=== PATIENT | female | born 1965 | race Caucasian/White ===

== ENCOUNTER 2017-05-04 01:38 | Emergency (ER) | payer BC ==
[~2017-05-04] VITALS: Ht 167.6 cm; Wt 77.8 kg
[~2017-05-04 01:38] MED LIST: ALBU1AER9 INH; AMLO5TAB4 PO; ATEN50TA8 PO; ATV1 PO; FLUO10CA48 PO; IBUP-1050 PO; NSNN50 NAE; OMEP40CA41 PO; PRM/45 PO
[2017-05-04 01:46] VITALS: TEMP 36.9; Ht 167.6 cm; Wt 77.8 kg
[2017-05-04] MEDS ORDERED: KETOROLAC TROMETHAMINE 30 MG/ML VIAL IV STA (01:56)
[2017-05-04] MEDS ORDERED: SODIUM CHLORIDE 0.9% 1000ML 1,000 ML IV STA (01:56)
[2017-05-04] MEDS ORDERED: ONDANSETRON INJ 2 MG/ML 2 ML VIAL IV STA (01:56)
[2017-05-04] MEDS ORDERED: PRLSR20 PO (02:04)
[2017-05-04 02:07] LABS: URINE APPEARANCE CLEAR (CLEAR); URINE BILIRUBIN NEG (NEG); URINE COLOR YELLOW; URINE NITRITE NEG (NEG); URINE SPECIFIC GRAVITY 1.009 (1.000-1.030); UROBILINOGEN NEG (NEG)
[2017-05-04 02:19] LABS: MANUAL MICROSCOPIC REQUIRED? NO; REVIEW REQ? NO
[2017-05-04 02:21] LABS: BASO % 0.2 %; BASO ABS # 0.02 K/uL (0-0.2); COMPLETE YES; EOS % 1.5 %; HEMATOCRIT 38.2 % (37-47); IG% 0.3 %; LYMPH % 7.8 %; LYMPH ABS # 0.92 K/uL (1.2-3.4); MEAN CELL VOLUME 81.3 fL (80-100); MEAN CORPUSCULAR HEMOGLOBIN 27.2 pg (25-34); MEAN CORPUSCULAR HGB CONC 33.5 g/dl (32-36); MEAN PLATELET VOLUME 8.2 fL (7.4-10.4); NEUT % 82.2 %; PLATELET COUNT 259 K/uL (130-400); WHITE BLOOD COUNT 11.81 K/uL (4.8-10.8)
[2017-05-04 02:38] LABS: ALT/SGPT 19 U/L (12-78); AST/SGOT 15 U/L (15-37); BLOOD UREA NITROGEN 20 mg/dl (7-18); BUN/CREATININE RATIO 13.3 (10-20); CALCIUM 8.7 mg/dl (8.5-10.1); CARBON DIOXIDE 27 mmol/L (21-32); CHLORIDE 105 mmol/L (98-107); GLUCOSE 123 mg/dl (70-99); POTASSIUM 4.1 mmol/L (3.5-5.1); SODIUM 141 mmol/L (136-145)
[2017-05-04 02:49] LABS: ALKALINE PHOSPHATASE 108 U/L (45-117)
[2017-05-04 03:10] LABS: LYME DISEASE AB IGG NEG (NEG); LYME DISEASE AB IGM NEG (NEG)
[2017-05-04] MEDS ORDERED: METOCLOPRAMIDE HCL INJ 5 MG/ML 2 ML VIAL IV STA (03:40)
[2017-05-04] MEDS ORDERED: HYDROmorphone INJ 1 MG/ML SYR IV STA ×2 (03:40→06:11)
--- NOTE | 2017-05-04 03:49 | EMERGENCY ROOM VISIT NOTE ---
History Report prepared by Elizabeth: Jeannie Carreon Under the Supervision of: Dr. Jovanny Ponce M.D. First contact with patient: 01:49 Chief Complaint: URINARY SYMPTOMS Stated Complaint: UTI,TOLD TO COME TO ER IF GOT FEVER OR VOMITED Nursing Triage Summary: pt has hx for uti, seen at urgent care given macrobid for got she was allergic and began to have heart racing and stopped it had dr call in new script that she started yesterday then this morning started with more back pain, stomach, sharp shooting pains down into vagina, vomited, low grade fever at home, h/a for days History of Present Illness The patient is a 52 year old female who presents to the Emergency Room with complaints of worsening urinary symptoms starting a few weeks ago. The patient states that it started out with her not feeling well and progressively becoming achy within the last week. She states that she went to work four days ago and while at work became nauseous. She states that she then went to the restroom and experienced burning with urination. The patient states that a few hours later she started experiencing back pain. She states that three days ago she called her PCP who had no available appointments. The patient reports that she then decided to go to [facility]. She states that they did a culture there that came back negative and gave her medication to help with the symptoms. The patient notes that two days later she realized that she has an allergic reaction to this medication so she stopped taking it. The patient states that she had gotten better, but started to feel ill again yesterday. The patient complains of nausea, vomiting, abdominal pain, back pain, intermittent diarrhea , and a slight fever. The patient denies a cholecystectomy, rash, and chance of . The patient notes a history of a hysterectomy and ulcerative colitis. The patient currently rates her pain as a 4.5/10 in severity. Source of History: patient Onset: few weeks ago Position: other (global) Symptom Intensity: 4.5/10 Quality: other (global) Timing: worsening Associated Symptoms: + fevers, + nausea, + vomiting, + abdominal pain, + back pain, + diarrhea, No rash Note: The patient complains of achiness. Review of Systems See HPI for pertinent positives & negatives. A total of 10 systems reviewed and were otherwise negative. Past Medical & Surgical Medical Problems: (1) GERD (gastroesophageal reflux disease) (2) Hypertension (3) Ulcerative colitis Surgical Problems: (1) History of hysterectomy Family History No pertinent family history Social History Smoking Status: Never Smoker Drug Use: none Marital Status: Housing Status: lives with family Occupation Status: employed Current/Historical Medications Scheduled Albuterol (Proair Hfa), 2 PUFFS INH QID PRN Amlodipine Besylate (Norvasc), 5 MG PO DAILY Amoxicillin & Pot Clavulanate (Augmentin 875-125 mg), 1 TAB PO BID Atenolol (Tenormin), 50 MG PO BID Estrogens, Conjugated (Premarin), 0.9 MG PO DAILY Fluoxetine (Prozac), 20 MG PO DAILY Mometasone Furoate (Nasal) (Nasonex), 2 SPRAY DOUGIE DAILY PRN Omeprazole (Prilosec), 40 MG PO DAILY Scheduled PRN Ibuprofen (Advil), 400 MG PO UD PRN for Headache or Pain Lorazepam (Lorazepam), 0.5 MG PO UD PRN for sleep/migraine Oxycodone/Acetaminophen 5MG/325MG (Percocet 5MG/325MG), 1-2 TAB PO Q4H PRN for Pain Allergies Coded Allergies: Nitrofurantoin (Verified Allergy, Mild, 05/04/17) Levofloxacin (Unverified Allergy, Unknown, unknown, 05/04/17) POLLEN (Verified Allergy, Unknown, 05/04/17) Sulfa Drugs (Verified Adverse Reaction, Severe, SEVERE VOMITIN AND NAUSEA , 02/29/16) VOMITTING AND SEVERE NAUSEA Physical Exam Vital Signs Date Time Temp Pulse Resp B/P (MAP) Pulse Ox O2 Delivery O2 Flow Rate FiO2 05/04/17 06:34 70 18 167/92 97 05/04/17 05:13 69 18 143/77 96 Room Air 05/04/17 03:55 75 18 151/92 95 Room Air 05/04/17 02:59 70 16 158/87 98 Room Air 05/04/17 02:18 74 05/04/17 01:46 36.9 82 18 150/87 96 Room Air Physical Exam GENERAL: Patient is a healthy-appearing well-nourished HEAD: Normocephalic atraumatic EYES: Ocular movements intact pupils equal and react to light OROPHARYNX mucous membranes are moist no exudates present no erythema or edema present NECK: Supple no nuchal rigidity CHEST: Good equal expansion LUNGS: Clear and equal to auscultation CARDIAC: Normal S1 and S2 ABDOMEN: Soft, tenderness to right upper quadrant, no guarding BACK: No CVA tenderness EXTREMITIES: No pain upon palpation normal muscle strength in all groups no clubbing cyanosis or edema NEURO: Patient is following commands and answering questions appropriately. Alert and oriented x3 Cranial Nerves 2-12 grossly intact Medical Decision & Procedures ER Provider Diagnostic Interpretation: Radiology results as stated below per my review and radiologist interpretation: CHEST X-RAY: Findings: The x-ray was interpreted by me and shows no signs of pneumonia, congestion, or pneumothorax. US RUQ: Findings: No gallstones. No evidence of GB wall thickening or pericholecystic fluid. No biliary dilation. Liver measures 18.8 cm long and demonstrates heterogenously increased echogenicity, compatible with hepatic steatosis and/or hepatocellular disease. Right perinephric fluid. No hydronephrosis. Correlate clinically for pyelonephritis. Radiologist: Leighton Sarmiento MD Study ready at 03:49 and initial results transmitted at 04:41. CT ABDOMEN & PELVIS: Comparison: 05/16/2012 Findings: Bilateral perinephric fat stranding with slightly heterogenous enhancement of the renal parenchyma. No hydronephrosis. the findings suggest acute pyelonephritis. Normal appendix. No evidence of bowel obstruction. No free air or free fluid in. Hysterectomy. Radiologist: Leighton Samriento MD Study ready at 05:09 and intitial results transmitted at 05:48. Laboratory Results 05/04/17 02:10 Red Blood Count 4.70, Mean Corpuscular Volume 81.3, Mean Corpuscular Hemoglobin 27.2, Mean Corpuscular Hemoglobin Concent 33.5, Mean Platelet Volume 8.2, Neutrophils (%) (Auto) 82.2, Lymphocytes (%) (Auto) 7.8, Monocytes (%) (Auto) 8.0, Eosinophils (%) (Auto) 1.5, Basophils (%) (Auto) 0.2, Neutrophils # (Auto) 9.71, Lymphocytes # (Auto) 0.92, Monocytes # (Auto) 0.95, Eosinophils # (Auto) 0.18, Basophils # (Auto) 0.02 05/04/17 02:10 Test 05/04/17 01:50 05/04/17 02:10 Urine Color YELLOW Urine Appearance CLEAR (CLEAR) Urine pH 6.0 (4.5-7.5) Urine Specific [place] 1.009 (1.000-1.030) Urine Protein NEG (NEG) Urine Glucose (UA) NEG (NEG) Urine Ketones NEG (NEG) Urine Occult Blood NEG (NEG) Urine Nitrite NEG (NEG) Urine Bilirubin NEG (NEG) Urine Urobilinogen NEG (NEG) Urine Leukocyte Esterase NEG (NEG) White Blood Count 11.81 K/uL (4.8-10.8) Red Blood Count 4.70 M/uL (4.2-5.4) Hemoglobin 12.8 g/dL (12.0-16.0) Hematocrit 38.2 % (37-47) Mean Corpuscular Volume 81.3 fL (80-100) Mean Corpuscular Hemoglobin 27.2 pg (25-34) Mean Corpuscular Hemoglobin Concent 33.5 g/dl (32-36) Platelet Count 259 K/uL (130-400) Mean Platelet Volume 8.2 fL (7.4-10.4) Neutrophils (%) (Auto) 82.2 % Lymphocytes (%) (Auto) 7.8 % Monocytes (%) (Auto) 8.0 % Eosinophils (%) (Auto) 1.5 % Basophils (%) (Auto) 0.2 % Neutrophils # (Auto) 9.71 K/uL (1.4-6.5) Lymphocytes # (Auto) 0.92 K/uL (1.2-3.4) Monocytes # (Auto) 0.95 K/uL (0.11-0.59) Eosinophils # (Auto) 0.18 K/uL (0-0.5) Basophils # (Auto) 0.02 K/uL (0-0.2) RDW Standard Deviation 41.8 fL (36.4-46.3) RDW Coefficient of Variation 14.1 % (11.5-14.5) Immature Granulocyte % (Auto) 0.3 % Immature Granulocyte # (Auto) 0.03 K/uL (0.00-0.02) Anion Gap 9.0 mmol/L (3-11) Est Creatinine Clear Calc Drug Dose 45.7 ml/min Estimated GFR () 45.6 Estimated GFR (Non- 39.4 BUN/Creatinine Ratio 13.3 (10-20) Calcium Level 8.7 mg/dl (8.5-10.1) Total Bilirubin 0.2 mg/dl (0.2-1) Direct Bilirubin < 0.1 mg/dl (0-0.2) Aspartate Amino Transf (AST/SGOT) 15 U/L (15-37) Alanine Aminotransferase (ALT/SGPT) 19 U/L (12-78) Alkaline Phosphatase 108 U/L (45-117) Total Protein 7.5 gm/dl (6.4-8.2) Albumin 3.0 gm/dl (3.4-5.0) Lipase 71 U/L (73-393) Thyroid Stimulating Hormone (TSH) 2.000 uIu/ml (0.300-4.500) Lyme Disease IgG Antibody NEG (NEG) Lyme Disease IgM Antibody NEG (NEG) Labs reviewed by ED physician. Medications Administered Medications (Trade) Dose Ordered Sig/Shea Route Start Time Stop Time Status Last Admin Dose Admin Sodium Chloride 1,000 ml @ 999 mls/hr Q1H1M STAT IV 05/04/17 01:56 05/04/17 02:56 DC 05/04/17 02:07 999 MLS/HR Ketorolac Tromethamine (Toradol Inj) 30 mg NOW STAT IV 05/04/17 01:56 05/04/17 02:00 DC 05/04/17 02:06 30 MG Ondansetron HCl (Zofran Inj) 4 mg NOW STAT IV 05/04/17 01:56 05/04/17 02:00 DC 05/04/17 02:06 4 MG Hydromorphone HCl (Dilaudid Inj) 1 mg NOW STAT IV 05/04/17 03:40 05/04/17 03:41 DC 05/04/17 03:50 1 MG Metoclopramide HCl (Reglan Inj) 10 mg NOW STAT IV 05/04/17 03:40 05/04/17 03:41 DC 05/04/17 03:47 10 MG Ceftriaxone Sodium (Rocephin Inj) 1 gm NOW STAT IV 05/04/17 04:44 05/04/17 04:46 DC 05/04/17 05:08 1 GM Amoxicillin/ Clavulanate Potassium (Augmentin Tab) 875 mg BID ONCE PO 05/04/17 09:00 05/04/17 09:01 05/04/17 06:22 875 MG Amoxicillin/ Clavulanate Potassium (Augmentin Tab) 875 mg ONE ONCE PO 05/04/17 06:00 05/04/17 06:01 DC 05/04/17 06:21 875 MG Hydromorphone HCl (Dilaudid Inj) 1 mg NOW STAT IV 05/04/17 06:11 05/04/17 06:12 DC 05/04/17 06:23 1 MG ED Course 0149: Past medical records reviewed. The patient was evaluated in room A11. A complete history and physical examination was performed. 0156: Ordered Zofran Inj 4 mg IV, Toradol Inj 30 mg IV, NSS 1000 ml @ 999 mls/ hr IV. 0340: Ordered Reglan Inj 10 mg IV, Dilaudid Inj 1 mg IV. 0444: Ordered Rocephin Inj 1 gm IV. 0600: Ordered Augmentin Tab 875 mg PO. 0611: Ordered Dilaudid Inj 1 mg IV. 0641: Upon reexamination the patient is resting comfortably. I discussed results and treatment plan with the patient. She verbalizes agreement and understanding. The patient is ready for discharge. 0900: Ordered Augmentin Tab 875 mg PO. Medical Decision Medication Reconciliation: I attest that I have personally reviewed the patient' s current medication list Blood Pressure Screening: Patient was found to have an elevated blood pressure and was referred to their primary care doctor for recheck and further treatment Differential diagnosis: Etiologies such as appendicitis, diverticulitis, PUD, biliary pathology, UTI, pancreatitis, obstruction, mesenteric ischemia, aortic pathology, infections, inflammatory bowel disease, renal colic, as well as others were entertained. This is a 52-year-old female who presents emergency department complaining of right upper quadrant abdominal pain. The patient was recently placed on Cipro for urinary tract infection I will note that the patient's urine appears to be clean here in the emergency department she does however have an elevation in her white blood cell count. Serial abdominal examinations were performed on the patient in the emergency department and at no tender the patient exhibited a surgical abdomen. The patient was given Toradol Zofran and Dilaudid for her pain. Repeat examination revealed much improvement the patient's symptoms. The patient's ultrasound was concerning for what appeared to be pyelonephritis therefore she was sent for CAT scan of the abdomen and pelvis. This did confirm what appears to be pyelonephritis though the patient appears to have a clean urine. She was able to tolerate by mouth medications. I will switch the patient over to Augmentin because of her multiple drug allergies. At this point I do feel that the patient as well as to be discharged home for follow-up with her primary care physician however she was told to return if the pain is unbearable or she is vomiting. Patient was in agreement with treatment plan. Impression Primary Impression: Symptoms involving urinary system Scribe Attestation The scribe's documentation has been prepared under my direction and personally reviewed by me in its entirety. I confirm that the note above accurately reflects all work, treatment, procedures, and medical decision making performed by me. Departure Information Dispostion Home / Self-Care Prescriptions Oxycodone/Acetaminophen 5MG/325MG (PERCOCET 5MG/325MG) Tab 1-2 TAB PO Q4H Y for Pain, #14 TAB Prov: Jovanny Ponce MD 05/04/17 Amoxicillin & Pot Clavulanate (Augmentin 875-125 mg) 1 Tab Tab 1 TAB PO BID for 10 Days, #20 TAB Prov: Jovanny Ponce MD 05/04/17 Referrals Michelle Mora PA-C (PCP) Forms HOME CARE DOCUMENTATION FORM, IMPORTANT VISIT INFORMATION Patient Instructions My [facility] Additional Instructions You were found to have an elevated blood pressure today (>120 sytolic or >90 diastolic). Per medicare guidelines, you need to follow up with this blood pressure screening with your Primary Care Physician (PCP). For a new PCP call [phone]. You received narcotic or benzodiazepene medication while in the emergency room today. Do not drive, operate heavy machinery, or drink alcohol under the influence of this medication. Take 600 mg Ibuprofen every 6 hours Take Percocet for breakthrough pain Culture results are usually available in approx 48 hours You have been examined and treated today on an emergency basis only. This is not a substitute for, or an effort to provide, complete comprehensive medical care. It is impossible to recognize and treat all injuries or illnesses in a single emergency department visit. It is therefore important that you follow up closely with your PCP. Call as soon as possible for an appointment. Thank you for your time and consideration. I look forward to speaking with you again soon. Please don't hesitate to call us if you have any questions.
[2017-05-04] MEDS ORDERED: METOCLOPRAMIDE HCL INJ 5 MG/ML 2 ML VIAL ONE (04:15)
[2017-05-04] MEDS ORDERED: HYDROmorphone INJ 1 MG/ML SYR ONE (04:15)
[2017-05-04] MEDS ORDERED: CEFTRIAXONE SOD INJ 1 GM ADDVIAL IV STA (04:44)
[2017-05-04] MEDS ORDERED: OPTIRAY 320 IV PRN (05:00)
[2017-05-04] MEDS ORDERED: AMOXICILLIN/CLAVULANATE TAB 875 MG TAB PO ONE ×2 (06:00→09:00)
[2017-05-04] MEDS ORDERED: EMPTY 8 DRAM VIAL ONE (06:01)
[2017-05-04] MEDS ORDERED: OXYC-57 PO (06:13)
[2017-05-04] MEDS ORDERED: AMOX875T PO (06:13)
[2017-05-04 06:34] VITALS: BP 167/92; PULSE 70; O2SAT 97
--- NOTE | 2017-05-04 06:54 | DIAGNOSTIC IMAGING REPORT ---
CHEST ONE VIEW PORTABLE HISTORY:52 yearsFemalePt c/o RUQ abd pain COMPARISON: 02/29/2016. TECHNIQUE: Portable upright AP view of the chest FINDINGS: Cardiac silhouette is again upper limits of normal. There is no pneumothorax, pleural effusion, focal airspace consolidation or overt pulmonary edema. There is minimal convex left curvature of the lower thoracic spine. Bones are grossly intact. IMPRESSION: No acute cardiopulmonary process. The above report was generated using voice recognition software. It may contain grammatical, syntax or spelling errors. Electronically signed by: Joshua Diaz 05/04/2017 6:53 AM Dictated Date/Time: 05/04/2017 6:51 AM
--- NOTE | 2017-05-04 07:38 | DIAGNOSTIC IMAGING REPORT ---
ABDOMEN LIMITED (US) HISTORY:52 yearsFemalePt c/o Ruq abd pain COMPARISON: CT abdomen of same day TECHNIQUE: Also real-time symmetric images of the abdominal right upper quadrant were obtained assessing grayscale appearance and color Doppler flow. FINDINGS: Imaged pancreas appears unremarkable. There is increased echogenicity of the liver with poor through transmission suggesting fatty infiltration. Gallbladder is unremarkable without shadowing cholelithiasis or gallbladder wall thickening. Sonographic Goetz sign reported as negative. Common bile duct appears normal measuring 3.3 mm. There is a mild degree of perinephric fluid around the right kidney without hydronephrosis. IMPRESSION: 1. Unremarkable sonographic appearance of the gallbladder without cholelithiasis or sonographic evidence of acute cholecystitis. 2. No biliary ductal dilatation. 3. Fatty infiltration of the liver. 4. Mild perinephric fluid on the right is better evaluated on the CT study of same day. The above report was generated using voice recognition software. It may contain grammatical, syntax or spelling errors. Electronically signed by: Joshua Diaz 05/04/2017 7:37 AM Dictated Date/Time: 05/04/2017 7:34 AM
--- NOTE | 2017-05-04 08:14 | DIAGNOSTIC IMAGING REPORT ---
ABD/PELVIS IV CONTRAST ONLY CLINICAL HISTORY: 52 years-old Female presenting with Pt c/o RUQ abd pain. TECHNIQUE: Multidetector CT of the abdomen and pelvis was performed after the administration of intravenous contrast. IV contrast: 93 mL of Optiray 320. COMPARISON: 05/16/2012. CT DOSE: The estimated cumulative dose is 578.06 mGy.cm. FINDINGS: Supervisor Riveting topogram: Unremarkable. Lung bases: Lung bases clear. No pericardial or pleural effusion. Liver: Normal morphology. No liver lesion. Patent hepatic vasculature. Biliary: No intrahepatic or extrahepatic biliary ductal dilatation. Normal gallbladder. Pancreas: Normal. Spleen: Normal. Adrenal glands: Normal. Kidneys and ureters: Nonspecific perinephric stranding and trace fluid. No hydronephrosis or hydroureter. Gastrointestinal tract: Normal appendix. No bowel obstruction. Peritoneal cavity: No free fluid or intraperitoneal gas. Bladder: Normal. Pelvic organs: Uterus surgically absent. Vasculature: Aorta and IVC patent and normal in caliber. Lymph nodes: No enlarged lymph nodes in the abdomen or pelvis. Abdominal wall: Normal. Musculoskeletal: Normal. IMPRESSION: 1. Nonspecific perinephric stranding and fluid. This could merely relate to intravenous fluid administration. Although there is no CT evidence of cystitis, correlate with urinalysis to exclude infection. No obstruction. 2. No other evidence of acute intra-abdominal pathology. Electronically signed by: Anson Richardson 05/04/2017 8:13 AM Dictated Date/Time: 05/04/2017 8:06 AM
[2017-05-09] MEDS ORDERED: ONDA4TAB65 PO (13:53)
[2017-05-09] MEDS ORDERED: LEVO1TAB34 PO (13:53)
[2017-05-09] MEDS ORDERED: SENN8.6T7 PO (13:54)
[2017-05-09] MEDS ORDERED: CEFU1TAB33 PO (14:07)
[2017-05-09] MEDS ORDERED: METO-157 PO (14:38)
== END 2017-05-04 06:34 | disposition home or self-care (01) ==
LOC: C.EDB 01:40 → C.EDA 06:34
DX: R39.9 Unspecified symptoms and signs involving the genitourinary system (principal); R10.11 Right upper quadrant pain; K21.9 Gastro-esophageal reflux disease without esophagitis; I10 Essential (primary) hypertension; K51.90 Ulcerative colitis, unspecified, without complications; Z79.899 Other long term (current) drug therapy

== ENCOUNTER 2017-05-06 17:01 | Inpatient (IN) | payer BC ==
[~2017-05-06] VITALS: Ht 167.6 cm; Wt 78.0 kg
[~2017-05-06 17:01] MED LIST changes: +AMOX875T PO; -OMEP40CA41 PO; +OXYC-57 PO; +PRLSR20 PO
[2017-05-06] MEDS ORDERED: KETOROLAC TROMETHAMINE 30 MG/ML VIAL IV STA (17:22)
[2017-05-06] MEDS ORDERED: ONDANSETRON INJ 2 MG/ML 2 ML VIAL IV STA (17:22)
[2017-05-06] MEDS ORDERED: SODIUM CHLORIDE 0.9% 1000ML 1,000 ML IV STA (17:22)
[2017-05-06] MEDS ORDERED: CEFTRIAXONE SOD INJ 1 GM ADDVIAL IV STA (17:22)
[2017-05-06] MEDS ORDERED: SODIUM CHLORIDE 0.9% 1000ML 500 ML IV STA (17:22)
[2017-05-06] MEDS ORDERED: MOME6000 NAE (17:55)
[2017-05-06] MEDS ORDERED: AMOX875T PO (17:55)
[2017-05-06] MEDS ORDERED: ALBU18002 INH (17:55)
[2017-05-06] MEDS ORDERED: OXYC-57 PO (17:55)
--- NOTE | 2017-05-06 18:07 | EMERGENCY ROOM VISIT NOTE ---
History Report prepared by Elizabeth: Brenton Espinoza Under the Supervision of: Dr. Zeb Grubbs M.D. First contact with patient: 17:20 Chief Complaint: URINARY SYMPTOMS Stated Complaint: B/L KIDNEY INFECTION Nursing Triage Summary: seen here thursday with back and side pain test reavealed infection given 2 antibiotics, now feeling worse called pcp told to come back. pain in bilat flank area History of Present Illness The patient is a 52 year old female who presents to the Emergency Room with complaints of bilateral flank pain starting a few days ago and worsening yesterday. She has a history of right sided pyelonephritis occurring many years ago. About a month ago, the patient started having difficulty with urination. About a week and a half ago, she started having persistent nausea. About a week ago, she started having right flank pain and burning with urination. She was evaluated by [facility] 6 days ago and she was prescribed Macrobid. She took Macrobid for one day without relief. She was switched over to Cipro by her PCP. She took Cipro for 2 days without relief. The patient was evaluated at the Emergency Room 2 days ago. She was diagnosed with bilateral pyelonephritis through ultrasound and CT scan. She was discharged home. She has been taking Percocet and Augmentin as prescribed without relief. She is no longer on Cipro. She reports her pain has worsened. She is now having bilateral flank pain. She currently rates a pain intensity of 6/10. She also complains of nausea. She had a vomiting episode 3 days ago but is no longer vomiting. She denies any history of kidney stones. The patient initially had fever which have now resolved. She reports intermittent chills. The patient denies diarrhea, or any other complaints. Source of History: patient Onset: a few days ago Position: other (bilateral flank) Symptom Intensity: 6/10 Timing: worsening Modifying Factors (Relieving): other (Macrobid, Cipro, Percocet, Augmentin without relief) Associated Symptoms: + chills, + nausea, + vomiting, No fevers, No diarrhea Review of Systems See HPI for pertinent positives & negatives. A total of 10 systems reviewed and were otherwise negative. Past Medical & Surgical Medical Problems: (1) Acute pyelonephritis (2) Anxiety (3) Depression (4) GERD (gastroesophageal reflux disease) (5) Hypertension (6) Multiple sclerosis (7) Ulcerative colitis Surgical Problems: (1) History of hysterectomy (2) S/P AGAPITO-BSO Family History No pertinent family history Social History Smoking Status: Never Smoker Drug Use: none Marital Status: Housing Status: lives with family Occupation Status: employed Current/Historical Medications Scheduled Amlodipine Besylate (Norvasc), 5 MG PO DAILY Amoxicillin & Pot Clavulanate (Augmentin 875-125 mg), 1 TAB PO BID Atenolol (Tenormin), 50 MG PO BID Estrogens, Conjugated (Premarin), 0.9 MG PO DAILY Fluoxetine (Prozac), 20 MG PO DAILY Pantoprazole Sodium (Protonix), 40 MG PO DAILY Valsartan (Diovan), 1 TAB PO DAILY Scheduled PRN Albuterol Sulfate (Proair Respiclick), 2 PUFFS INH QID PRN for SOB/Wheezing Ibuprofen (Advil), 400 MG PO UD PRN for Headache or Pain Lorazepam (Lorazepam), 0.5 MG PO UD PRN for sleep/migraine Mometasone Furoate (Nasal) (Mometasone Furoate), 2 SPRAYS DOUGIE DAILY PRN for Seasonal Allergies Oxycodone/Acetaminophen 5MG/325MG (Percocet 5MG/325MG), 1-2 TABLETS PO Q4H PRN for Pain Allergies Coded Allergies: Nitrofurantoin (Verified Allergy, Mild, 05/06/17) Levofloxacin (Verified Allergy, Unknown, unknown, 05/06/17) POLLEN (Verified Allergy, Unknown, 05/06/17) Sulfa Drugs (Verified Adverse Reaction, Severe, SEVERE VOMITIN AND NAUSEA , 05/06/17) VOMITTING AND SEVERE NAUSEA Physical Exam Vital Signs Date Time Temp Pulse Resp B/P (MAP) Pulse Ox O2 Delivery O2 Flow Rate FiO2 05/06/17 20:44 36.9 65 17 188/84 05/06/17 20:30 65 17 188/84 97 Room Air 05/06/17 18:39 66 20 177/83 97 Room Air 05/06/17 17:08 36.9 67 18 184/91 94 Room Air Physical Exam GENERAL: Patient is in no acute distress. HEENT: No acute trauma, normocephalic atraumatic, mucous membranes moist, no nasal congestion, no scleral icterus. NECK: No stridor, no adenopathy, no meningismus, trachea is midline. LUNGS: Clear to auscultation bilaterally, no wheeze, no rhonchi, breath sounds equal. HEART: Without murmurs gallops or rubs, regular rate and rhythm. ABDOMEN: Soft, tenderness along the lower abdomen bilaterally and also to the right upper quadrant, bowel sounds positive, no hernias, no peritonitis. BACK: Bilateral flank discomfort with percussion. EXTREMITIES: No cyanosis or edema, full range of motion of all the joints without pain or difficulty, no signs for acute trauma. NEUROLOGIC: Oriented x 3, no acute motor or sensory deficits, no focal weakness. SKIN: No rash, no jaundice, no diaphoresis. Medical Decision & Procedures ER Provider Diagnostic Interpretation: US results as stated below per my review and radiologist interpretation: RENAL ULTRASOUND CLINICAL HISTORY: Flank pain. Bilateral kidney infection. COMPARISON STUDY: CT of the abdomen and pelvis May 04, 2017. TECHNIQUE: Sonography of the kidneys and the urinary bladder was performed. FINDINGS: The right kidney measures 11.6 cm in maximal dimension and the left measures 10.8 cm. There is no hydronephrosis. Renal echogenicity, size and cortical thickness are normal. There is no fluid collection to suggest renal abscess. No calculi or masses are identified. Both ureteral jets were identified. There is fatty infiltration of the liver. IMPRESSION: 1. Normal sonographic appearance of the kidneys. However, this does not exclude the possibility of acute pyelonephritis. No renal abscess. No hydronephrosis. 2. Fatty liver. Electronically signed by: Jamir Garcia M.D. 05/06/2017 7:22 PM Dictated Date/Time: 05/06/2017 7:21 PM Laboratory Results 05/06/17 17:50 Test 05/06/17 17:50 05/06/17 20:40 RDW Standard Deviation 41.6 fL (36.4-46.3) RDW Coefficient of Variation 13.9 % (11.5-14.5) White Blood Count 7.41 K/uL (4.8-10.8) Red Blood Count 4.92 M/uL (4.2-5.4) Hemoglobin 12.9 g/dL (12.0-16.0) Hematocrit 40.4 % (37-47) Mean Corpuscular Volume 82.1 fL (80-100) Mean Corpuscular Hemoglobin 26.2 pg (25-34) Mean Corpuscular Hemoglobin Concent 31.9 g/dl (32-36) Platelet Count 315 K/uL (130-400) Mean Platelet Volume 8.6 fL (7.4-10.4) Neutrophils (%) (Auto) 63.8 % Lymphocytes (%) (Auto) 27.3 % Monocytes (%) (Auto) 5.9 % Eosinophils (%) (Auto) 2.6 % Basophils (%) (Auto) 0.3 % Neutrophils # (Auto) 4.73 K/uL (1.4-6.5) Lymphocytes # (Auto) 2.02 K/uL (1.2-3.4) Monocytes # (Auto) 0.44 K/uL (0.11-0.59) Eosinophils # (Auto) 0.19 K/uL (0-0.5) Basophils # (Auto) 0.02 K/uL (0-0.2) Immature Granulocyte % (Auto) 0.1 % Immature Granulocyte # (Auto) 0.01 K/uL (0.00-0.02) Urine Color DK YELLOW Urine Appearance CLEAR (CLEAR) Urine pH 6.0 (4.5-7.5) Urine Specific [place] 1.026 (1.000-1.030) Urine Protein NEG (NEG) Urine Glucose (UA) NEG (NEG) Urine Ketones TRACE (NEG) Urine Occult Blood NEG (NEG) Urine Nitrite NEG (NEG) Urine Bilirubin NEG (NEG) Urine Urobilinogen NEG (NEG) Urine Leukocyte Esterase NEG (NEG) Anion Gap 8.0 mmol/L (3-11) Est Creatinine Clear Calc Drug Dose 69.3 ml/min Estimated GFR () 75.4 Estimated GFR (Non- 65.1 BUN/Creatinine Ratio 13.9 (10-20) Calcium Level 9.1 mg/dl (8.5-10.1) Total Bilirubin 0.2 mg/dl (0.2-1) Aspartate Amino Transf (AST/SGOT) 14 U/L (15-37) Alanine Aminotransferase (ALT/SGPT) 19 U/L (12-78) Alkaline Phosphatase 100 U/L (45-117) Total Protein 7.6 gm/dl (6.4-8.2) Albumin 3.1 gm/dl (3.4-5.0) Globulin 4.5 gm/dl (2.5-4.0) Albumin/Globulin Ratio 0.7 (0.9-2) Lipase 62 U/L (73-393) Lyme Disease IgG Antibody NEG (NEG) Lyme Disease IgM Antibody NEG (NEG) Laboratory results reviewed by me. Medications Administered Medications (Trade) Dose Ordered Sig/Shea Route Start Time Stop Time Status Last Admin Dose Admin Sodium Chloride 500 ml @ 999 mls/hr Q31M STAT IV 05/06/17 17:22 05/06/17 17:52 DC 05/06/17 17:22 999 MLS/HR Ondansetron HCl (Zofran Inj) 4 mg NOW STAT IV 05/06/17 17:22 05/06/17 17:31 DC 05/06/17 18:32 4 MG Sodium Chloride 1,000 ml @ 200 mls/hr Q5H STAT IV 05/06/17 17:22 05/06/17 22:21 05/06/17 18:29 200 MLS/HR Morphine Sulfate (MoRPHine SULFATE INJ) 4 mg Q15M PRN IV 05/06/17 17:30 05/20/17 17:29 05/06/17 19:32 4 MG Ketorolac Tromethamine (Toradol Inj) 30 mg NOW STAT IV 05/06/17 17:22 05/06/17 17:31 DC 05/06/17 18:36 30 MG Ceftriaxone Sodium (Rocephin Inj) 1 gm NOW STAT IV 05/06/17 17:22 05/06/17 17:31 DC 05/06/17 18:36 1 GM ED Course 1720: The patient was evaluated in room B09. A complete history and physical exam was performed. 172: Rocephin Inj 1 gm IV, Toradol Inj 30 mg IV, Sodium Chloride 1000 ml @ 200 mls/hr IV, Zofran Inj 4 mg IV, Sodium Chloride 500 ml @ 999 mls/hr IV 1730: Morphine Sulfate 4 mg IV 1930: I discussed the patient's [facility] 1934: Upon reexamination the patient is resting comfortably. I discussed results and treatment plan with the patient. She verbalizes agreement and understanding. The patient will be evaluated for further management. Medical Decision Differential diagnosis includes but is not limited to failed outpatient treatment, pyelonephritis, renal failure, dehydration, electrolyte imbalance, hydronephrosis, Lyme's disease. There is no leukocytosis or concerning anemia. No significant electrolyte abnormalities, kidney failure, hepatitis or pancreatitis. Lyme disease testing is negative. Renal ultrasound does not show hydronephrosis. Urinalysis does not show infection. On exam, the patient had flank discomfort with percussion. She was not febrile or toxic in appearance. Patient received IV ceftriaxone, IV saline, IV Zofran, IV Toradol and IV morphine. She feels improved. I reviewed the patient's workup from a few days ago. She did have evidence for pyelonephritis by CT scan. The patient is failing outpatient treatment. She had been on Macrobid, then Cipro, now Augmentin, she is still worsening. Admission/observation is warranted. I did speak with the on-call hospitalist. Case management is aware. The patient is aware of all her findings. Consults Time Called: 1927 Consulting Physician: Dr. Schneider, from [facility] Hospitalist Service Returned Call: 1930 I discussed the patient's [facility] Impression Primary Impression: Pyelonephritis Additional Impression: Failure of outpatient treatment Scribe Attestation The scribe's documentation has been prepared under my direction and personally reviewed by me in its entirety. I confirm that the note above accurately reflects all work, treatment, procedures, and medical decision making performed by me. Departure Information Dispostion Being Evaluated By Hospitalist Referrals No Doctor, Assigned (PCP) Patient Instructions My [facility] Problem Qualifiers
[2017-05-06 18:15] LABS: BASO % 0.3 %; BASO ABS # 0.02 K/uL (0-0.2); COMPLETE YES; EOS % 2.6 %; HEMATOCRIT 40.4 % (37-47); IG% 0.1 %; LYMPH % 27.3 %; LYMPH ABS # 2.02 K/uL (1.2-3.4); MEAN CELL VOLUME 82.1 fL (80-100); MEAN CORPUSCULAR HEMOGLOBIN 26.2 pg (25-34); MEAN CORPUSCULAR HGB CONC 31.9 g/dl (32-36); MEAN PLATELET VOLUME 8.6 fL (7.4-10.4); MONO % 5.9 %; NEUT % 63.8 %; PLATELET COUNT 315 K/uL (130-400); RED BLOOD COUNT 4.92 M/uL (4.2-5.4); WHITE BLOOD COUNT 7.41 K/uL (4.8-10.8)
[2017-05-06] MEDS: MoRPHine SULFATE 4 MG/ML 1 ML CARP IV PRN ×2 (18:32→19:32)
[2017-05-06 18:42] LABS: ALB/GLOB RATIO 0.7 (0.9-2); BUN/CREATININE RATIO 13.9 (10-20); CALCIUM 9.1 mg/dl (8.5-10.1); CREATININE 0.99 mg/dl (0.60-1.20); POTASSIUM 3.5 mmol/L (3.5-5.1)
[2017-05-06 18:55] LABS: URINE APPEARANCE CLEAR (CLEAR); URINE BILIRUBIN NEG (NEG); URINE COLOR DK YELLOW; URINE NITRITE NEG (NEG); URINE SPECIFIC GRAVITY 1.026 (1.000-1.030); UROBILINOGEN NEG (NEG); ZZUR CULT IF INDIC CLEAN CATCH NO
[2017-05-06 19:11] LABS: MANUAL MICROSCOPIC REQUIRED? NO; REVIEW REQ? NO
--- NOTE | 2017-05-06 19:24 | DIAGNOSTIC IMAGING REPORT ---
RENAL ULTRASOUND CLINICAL HISTORY: Flank pain. Bilateral kidney infection. COMPARISON STUDY: CT of the abdomen and pelvis May 04, 2017. TECHNIQUE: Sonography of the kidneys and the urinary bladder was performed. FINDINGS: The right kidney measures 11.6 cm in maximal dimension and the left measures 10.8 cm. There is no hydronephrosis. Renal echogenicity, size and cortical thickness are normal. There is no fluid collection to suggest renal abscess. No calculi or masses are identified. Both ureteral jets were identified. There is fatty infiltration of the liver. IMPRESSION: 1. Normal sonographic appearance of the kidneys. However, this does not exclude the possibility of acute pyelonephritis. No renal abscess. No hydronephrosis. 2. Fatty liver. Electronically signed by: Jamir Garcia M.D. 05/06/2017 7:22 PM Dictated Date/Time: 05/06/2017 7:21 PM
[2017-05-06 19:25] LABS: LYME DISEASE AB IGM NEG (NEG)
[2017-05-06 19:28] LABS: LYME DISEASE AB IGG NEG (NEG)
[2017-05-06] MEDS ORDERED: VALS40TA2 PO (20:40)
[2017-05-06] MEDS ORDERED: PANT40TA PO (20:40)
[2017-05-06 20:44] VITALS: BP 188/84; PULSE 65; TEMP 36.9; O2SAT 97; Ht 167.6 cm; Wt 78.0 kg
[2017-05-06] MEDS ORDERED: MoRPHine SULFATE 4 MG/ML 1 ML CARP IV PRN (20:45)
[2017-05-06] MEDS ORDERED: ACETAMINOPHEN 325 MG TAB PO PRN (20:45)
--- NOTE | 2017-05-06 21:02 | History and Physical ---
History & Physical Date & Time of Service: May 06, 2017 at 20:41 Chief Complaint: B/L Kidney Infection Primary Care Physician: Michelle Mora PA-C History of Present Illness Source: patient, family, clinic records, hospital records 52 yo F with h/p pyelonephritis in the past presents tonight with worsening pyelonephritis symptoms after failing outpatient antibiotic therapy. She reports feeling nauseated with malaise for about 4-7 days, then subsequently developed dysuria, urinary urgency, hesitation and incomplete voiding. She reports that her back was hurting then. She states that she called her PCP for a script to treat what she thought was a bladder infection. Cipro was called in for her, however, she couldn't reach someone in the office in time so she went to see [facility] [place] on [facility] and was prescribed Macrobid. She did not improve and became dizzy and nautious (she has an allergy to this medication), so two days later she picked up the Cipro, however , she still didn't improve so after another two days she came to the [facility] ER. At that time she was afebrile, WBC was 12K, UA was clear, and CT scan of the A/ P revealed nonspecific perinephric stranding. She was diagnosed with bilateral pyelonephritis and was sent home with Augmentin and Percocet, however, she was persistently vomiting and feeling poorly and her back pain was even worse not helped by the Percocet. She still has all symptoms and just in the ER had an episode of diarrhea. She denies fever but does report chills. She has weakness but is able to walk without assistance. Her sisters are with her at bedside. She reports a history of MS and UC but is not on medications for either. She does have some abdominal pain that is generalized and goes to her back with CVA tenderness on both sides. Of note, she has documented allergies to both Nitrofurantoin and Levaquin in the past. Past Medical/Surgical History Medical Problems: (1) Anxiety Status: Chronic (2) Depression Status: Chronic (3) GERD (gastroesophageal reflux disease) Status: Chronic (4) Hypertension Status: Chronic (5) Multiple sclerosis Status: Chronic (6) Ulcerative colitis Status: Chronic Surgical Problems: (1) S/P AGAPITO-BSO Status: Chronic Family History FH: CAD (coronary artery disease) Social History Smoking Status: Never Smoker Smokeless Tobacco Use: No Alcohol Use: none Drug Use: none Marital Status: Housing status: lives with significant other Occupational Status: employed Immunizations History of Influenza Vaccine: Yes Influenza Vaccine Date: Nov 12, 2016 History of Tetanus Vaccine?: Yes Tetanus Immunization Date: Aug 30, 2008 History of Pneumococcal: No History of Hepatitis B Vaccine: No Multi-Drug Resistant Organisms History of MDRO: No Allergies Coded Allergies: Nitrofurantoin (Verified Allergy, Mild, 05/06/17) Levofloxacin (Verified Allergy, Unknown, unknown, 05/06/17) POLLEN (Verified Allergy, Unknown, 05/06/17) Sulfa Drugs (Verified Adverse Reaction, Severe, SEVERE VOMITIN AND NAUSEA , 05/06/17) VOMITTING AND SEVERE NAUSEA Home Medications Scheduled Amlodipine Besylate (Norvasc), 5 MG PO DAILY Amoxicillin & Pot Clavulanate (Augmentin 875-125 mg), 1 TAB PO BID Atenolol (Tenormin), 50 MG PO BID Estrogens, Conjugated (Premarin), 0.9 MG PO DAILY Fluoxetine (Prozac), 20 MG PO DAILY Pantoprazole Sodium (Protonix), 40 MG PO DAILY Valsartan (Diovan), 1 TAB PO DAILY Scheduled PRN Albuterol Sulfate (Proair Respiclick), 2 PUFFS INH QID PRN for SOB/Wheezing Ibuprofen (Advil), 400 MG PO UD PRN for Headache or Pain Lorazepam (Lorazepam), 0.5 MG PO UD PRN for sleep/migraine Mometasone Furoate (Nasal) (Mometasone Furoate), 2 SPRAYS DOUGIE DAILY PRN for Seasonal Allergies Oxycodone/Acetaminophen 5MG/325MG (Percocet 5MG/325MG), 1-2 TABLETS PO Q4H PRN for Pain Review of Systems Constitutional: + chills, + weakness, + fatigue, No fever Eyes: No worsening of vision, No diplopia ENT: No nasal symptoms, No sore throat Respiratory: No cough, No shortness of breath Cardiovascular: No chest pain Abdomen: + pain, + nausea, + vomiting, + diarrhea, + problem reported ( bilateral flank pain) Musculoskeletal: + problem reported (malaise-general) Genitourinary - Female: + dysuria, + urinary frequency, + urinary urgency Neurologic: No numbness/tingling Psychiatric: + depression symptoms, + anxiety, No substance abuse Endocrine: + excessive urination Integumentary: No new/changing skin lesions Allergic / Immunologic: + seasonal allergies Physical Exam Vital Signs Date Time Temp Pulse Resp B/P (MAP) Pulse Ox O2 Delivery O2 Flow Rate FiO2 05/06/17 20:30 65 17 188/84 97 Room Air 05/06/17 18:39 66 20 177/83 97 Room Air 05/06/17 17:08 36.9 67 18 184/91 94 Room Air GEN: WNWD, in no acute distress, alert and appropriate HEENT: NC/AT, PERRL, normal sclerae/conjunctivae CARDIO: reg rate, S1/2 heard without m/g/r LUNGS: CTA bilaterally, no crackles, rales or wheezes, good diaphragmatic excursion ABD: soft, generalized tenderness all over, non-distended, no rebound or guarding, +BS, +CVA tenderness bilaterally (pt didn't jump off table or recoil, just stated pain present) EXTREMITY: RP and DP palpable 2+ bilat, no LE swelling or edema, extremities are warm and well-perfused NEURO: CN 2-12 grossly intact, sensation intact throughout MUSC: 5/5 strength throughout, moves around the bed with ease. SKIN: warm and dry Diagnostics Laboratory Results Results Past 24 Hours Test 05/06/17 17:50 Range/Units White Blood Count 7.41 4.8-10.8 K/uL Red Blood Count 4.92 4.2-5.4 M/uL Hemoglobin 12.9 12.0-16.0 g/dL Hematocrit 40.4 37-47 % Mean Corpuscular Volume 82.1 80-100 fL Mean Corpuscular Hemoglobin 26.2 25-34 pg Mean Corpuscular Hemoglobin Concent 31.9 32-36 g/dl Platelet Count 315 130-400 K/uL Mean Platelet Volume 8.6 7.4-10.4 fL Neutrophils (%) (Auto) 63.8 % Lymphocytes (%) (Auto) 27.3 % Monocytes (%) (Auto) 5.9 % Eosinophils (%) (Auto) 2.6 % Basophils (%) (Auto) 0.3 % Neutrophils # (Auto) 4.73 1.4-6.5 K/uL Lymphocytes # (Auto) 2.02 1.2-3.4 K/uL Monocytes # (Auto) 0.44 0.11-0.59 K/uL Eosinophils # (Auto) 0.19 0-0.5 K/uL Basophils # (Auto) 0.02 0-0.2 K/uL RDW Standard Deviation 41.6 36.4-46.3 fL RDW Coefficient of Variation 13.9 11.5-14.5 % Immature Granulocyte % (Auto) 0.1 % Immature Granulocyte # (Auto) 0.01 0.00-0.02 K/uL Urine Color DK YELLOW Urine Appearance CLEAR CLEAR Urine pH 6.0 4.5-7.5 Urine Specific [place] 1.026 1.000-1.030 Urine Protein NEG NEG Urine Glucose (UA) NEG NEG Urine Ketones TRACE NEG Urine Occult Blood NEG NEG Urine Nitrite NEG NEG Urine Bilirubin NEG NEG Urine Urobilinogen NEG NEG Urine Leukocyte Esterase NEG NEG Sodium Level 141 136-145 mmol/L Potassium Level 3.5 3.5-5.1 mmol/L Chloride Level 102 98-107 mmol/L Carbon Dioxide Level 31 21-32 mmol/L Anion Gap 8.0 3-11 mmol/L Blood Urea Nitrogen 14 7-18 mg/dl Creatinine 0.99 0.60-1.20 mg/dl Est Creatinine Clear Calc Drug Dose 69.3 ml/min Estimated GFR () 75.4 Estimated GFR (Non- 65.1 BUN/Creatinine Ratio 13.9 10-20 Random Glucose 124 70-99 mg/dl Calcium Level 9.1 8.5-10.1 mg/dl Total Bilirubin 0.2 0.2-1 mg/dl Aspartate Amino Transf (AST/SGOT) 14 15-37 U/L Alanine Aminotransferase (ALT/SGPT) 19 12-78 U/L Alkaline Phosphatase 100 45-117 U/L Total Protein 7.6 6.4-8.2 gm/dl Albumin 3.1 3.4-5.0 gm/dl Globulin 4.5 2.5-4.0 gm/dl Albumin/Globulin Ratio 0.7 0.9-2 Lipase 62 73-393 U/L Lyme Disease IgG Antibody NEG NEG Lyme Disease IgM Antibody NEG NEG Diagnostic Radiology RENAL ULTRASOUND CLINICAL HISTORY: Flank pain. Bilateral kidney infection. COMPARISON STUDY: CT of the abdomen and pelvis May 04, 2017. TECHNIQUE: Sonography of the kidneys and the urinary bladder was performed. FINDINGS: The right kidney measures 11.6 cm in maximal dimension and the left measures 10.8 cm. There is no hydronephrosis. Renal echogenicity, size and cortical thickness are normal. There is no fluid collection to suggest renal abscess. No calculi or masses are identified. Both ureteral jets were identified. There is fatty infiltration of the liver. IMPRESSION: 1. Normal sonographic appearance of the kidneys. However, this does not exclude the possibility of acute pyelonephritis. No renal abscess. No hydronephrosis. 2. Fatty liver. [~ rep ct add3]] ABD/PELVIS IV CONTRAST ONLY CLINICAL HISTORY: 52 years-old Female presenting with Pt c/o RUQ abd pain. TECHNIQUE: Multidetector CT of the abdomen and pelvis was performed after the administration of intravenous contrast. IV contrast: 93 mL of Optiray 320. COMPARISON: 05/16/2012. CT DOSE: The estimated cumulative dose is 578.06 mGy.cm. FINDINGS: Clinical Informatics Spec topogram: Unremarkable. Lung bases: Lung bases clear. No pericardial or pleural effusion. Liver: Normal morphology. No liver lesion. Patent hepatic vasculature. Biliary: No intrahepatic or extrahepatic biliary ductal dilatation. Normal gallbladder. Pancreas: Normal. Spleen: Normal. Adrenal glands: Normal. Kidneys and ureters: Nonspecific perinephric stranding and trace fluid. No hydronephrosis or hydroureter. Gastrointestinal tract: Normal appendix. No bowel obstruction. Peritoneal cavity: No free fluid or intraperitoneal gas. Bladder: Normal. Pelvic organs: Uterus surgically absent. Vasculature: Aorta and IVC patent and normal in caliber. Lymph nodes: No enlarged lymph nodes in the abdomen or pelvis. Abdominal wall: Normal. Musculoskeletal: Normal. IMPRESSION: 1. Nonspecific perinephric stranding and fluid. This could merely relate to intravenous fluid administration. Although there is no CT evidence of cystitis, correlate with urinalysis to exclude infection. No obstruction. 2. No other evidence of acute intra-abdominal pathology. CHEST ONE VIEW PORTABLE HISTORY:52 yearsFemalePt c/o RUQ abd pain COMPARISON: 02/29/2016. TECHNIQUE: Portable upright AP view of the chest FINDINGS: Cardiac silhouette is again upper limits of normal. There is no pneumothorax, pleural effusion, focal airspace consolidation or overt pulmonary edema. There is minimal convex left curvature of the lower thoracic spine. Bones are grossly intact. IMPRESSION: No acute cardiopulmonary process. The above report was generated using voice recognition software. It may contain grammatical, syntax or spelling errors. Impression Assessment and Plan 52 yo F with acute pyelonephritis presents after failing outpatient antibiotic therapy. 1. Acute bilateral pyelonephritis-no culture data is available, records requested from [facility]. Empirically placed on ceftriaxone with Pyridium and T3 given for symptom relief. Will cont IVF while n/v persists and keep her on clear liquids-advance diet as tolerated. Blood and urine cultures are pending, however, patient is not septic. 2. HTN-elevated likely 2.2 pain or the situation. Cont home meds and treat pain/discomfort per #1 above. 3. Depression/Anxiety-stable, cont home meds 4. MS-not on medication, last flare was 10 years ago 5. UC-diet controlled. DVT prophy-Lovenox/SCDs Full Code Dispo-med/surg, need to await urine culture results to taper abx [facility] Med/Surg Resuscitation Status FULL RESUSCITATION VTE Prophylaxis VTE Risk Assessment Done? Y/N: Yes Risk Level: Moderate Given or contraindicated: Enoxaparin (Lovenox)SQ, SCD's
[2017-05-06 21:15] VITALS: BP 175/93; PULSE 68; TEMP 36.7; O2SAT 97
[2017-05-06] MEDS: PHENAZOPYRIDINE HCL 200 MG TAB PO SCH (21:50)
[2017-05-06] MEDS: ACETAMINOPHEN/CODEINE 300/30MG TAB PO PRN (21:51)
[2017-05-06] MEDS: LORAZEPAM 0.5 MG TAB PO PRN (21:51)
[2017-05-06] MEDS: SODIUM CHLORIDE 0.9% 1000ML 1,000 ML IV SCH (21:52)
[2017-05-06 21:58] LABS: HEMATOCRIT 35.3 % (37-47); MEAN CELL VOLUME 82.5 fL (80-100); MEAN CORPUSCULAR HEMOGLOBIN 27.8 pg (25-34); MEAN CORPUSCULAR HGB CONC 33.7 g/dl (32-36); MEAN PLATELET VOLUME 8.6 fL (7.4-10.4); PLATELET COUNT 251 K/uL (130-400); RED BLOOD COUNT 4.28 M/uL (4.2-5.4); WHITE BLOOD COUNT 7.48 K/uL (4.8-10.8)
[2017-05-06 22:10] LABS: PROTHROMBIN TIME (PATIENT) 10.7 SECONDS (9.0-12.0)
[2017-05-07] MEDS: ONDANSETRON INJ 2 MG/ML 2 ML VIAL IV PRN ×2 (00:52→12:36)
[2017-05-07] MEDS: ACETAMINOPHEN/CODEINE 300/30MG TAB PO PRN ×3 (02:19→17:41)
[2017-05-07] MEDS: HYDROmorphone INJ 0.5 MG/0.5 ML SYR IV PRN ×4 (04:03→19:50)
[2017-05-07 04:08] VITALS: BP 169/85; PULSE 64; TEMP 36.6; O2SAT 94
[2017-05-07] MEDS: SODIUM CHLORIDE 0.9% 1000ML 1,000 ML IV SCH (05:33)
[2017-05-07 07:04] VITALS: BP 145/79; PULSE 58; TEMP 36.6; O2SAT 96
[2017-05-07 07:27] LABS: BASO % 0.3 %; BASO ABS # 0.02 K/uL (0-0.2); COMPLETE YES; EOS % 2.7 %; HEMATOCRIT 34.9 % (37-47); IG% 0.2 %; LYMPH % 34.3 %; LYMPH ABS # 2.16 K/uL (1.2-3.4); MEAN CELL VOLUME 82.3 fL (80-100); MEAN CORPUSCULAR HEMOGLOBIN 26.4 pg (25-34); MEAN CORPUSCULAR HGB CONC 32.1 g/dl (32-36); MEAN PLATELET VOLUME 8.5 fL (7.4-10.4); MONO % 5.7 %; NEUT % 56.8 %; PLATELET COUNT 251 K/uL (130-400); RED BLOOD COUNT 4.24 M/uL (4.2-5.4)
[2017-05-07] MEDS: PANTOprazole SOD 40 MG TAB PO SCH (07:52)
[2017-05-07] MEDS: AMLODIPINE BESYLATE 5 MG TAB PO SCH (07:53)
[2017-05-07] MEDS: VALSARTAN 80 MG TAB PO SCH (07:53)
[2017-05-07] MEDS: PHENAZOPYRIDINE HCL 200 MG TAB PO SCH ×2 (07:53→13:23)
[2017-05-07] MEDS: FLUOXETINE HCL 10 MG CAP PO SCH (07:53)
[2017-05-07] MEDS: ENOXAPARIN 40 MG/0.4 ML SYR SQ SCH (07:54)
[2017-05-07 07:55] LABS: BUN/CREATININE RATIO 11.1 (10-20); CALCIUM 7.8 mg/dl (8.5-10.1); CREATININE 0.84 mg/dl (0.60-1.20); POTASSIUM 3.5 mmol/L (3.5-5.1)
--- NOTE | 2017-05-07 13:38 | Progress Note ---
Medicine Progress Note Date & Time of Visit: May 07, 2017 at 13:03. (Tanisha Gross, P.A.-C.) Subjective Pt states that she is feeling slightly better than yesterday. Flank pain has diminished but suprapubic pain has gotten worse. No dysuria, but is experiencing urinary urgency and hesitancy. Experienced some nausea after eating solids for lunch but symptoms were alleviated with Zofran. Feels that pain is well controlled. Denies fever, chills or vomiting. (Tanisha Gross, P.A.-C.) Objective Last 8 Hrs Date Time Temp Pulse Resp B/P (MAP) Pulse Ox O2 Delivery O2 Flow Rate FiO2 05/07/17 08:00 Room Air 05/07/17 07:04 36.6 58 18 145/79 (101) 96 Room Air Physical Exam: General-Afebrile, not in distress, alert and communicative Neck- Supple, no adenopathy Lungs-Clear breath sounds bilaterally Heart-RRR, no m/g/r Abdomen- Normal bowel sounds. Soft, non-distended. Mild tenderness throughout epigastric area with most pain in suprapubic area bilaterally. Some CVA tenderness (L>R). Extremities-Warm to touch with pulses 2+ bilaterally in both extremities. No edema. Neuro-A&Ox3. Motor and sensory function intact. Skin: Warm and dry Laboratory Results: Last 24 Hours Test 05/06/17 17:50 05/06/17 21:42 05/07/17 07:05 White Blood Count 7.41 K/uL 7.48 K/uL 6.30 K/uL Red Blood Count 4.92 M/uL 4.28 M/uL 4.24 M/uL Hemoglobin 12.9 g/dL 11.9 g/dL 11.2 g/dL Hematocrit 40.4 % 35.3 % 34.9 % Mean Corpuscular Volume 82.1 fL 82.5 fL 82.3 fL Mean Corpuscular Hemoglobin 26.2 pg 27.8 pg 26.4 pg Mean Corpuscular Hemoglobin Concent 31.9 g/dl 33.7 g/dl 32.1 g/dl Platelet Count 315 K/uL 251 K/uL 251 K/uL Mean Platelet Volume 8.6 fL 8.6 fL 8.5 fL Neutrophils (%) (Auto) 63.8 % 56.8 % Lymphocytes (%) (Auto) 27.3 % 34.3 % Monocytes (%) (Auto) 5.9 % 5.7 % Eosinophils (%) (Auto) 2.6 % 2.7 % Basophils (%) (Auto) 0.3 % 0.3 % Neutrophils # (Auto) 4.73 K/uL 3.58 K/uL Lymphocytes # (Auto) 2.02 K/uL 2.16 K/uL Monocytes # (Auto) 0.44 K/uL 0.36 K/uL Eosinophils # (Auto) 0.19 K/uL 0.17 K/uL Basophils # (Auto) 0.02 K/uL 0.02 K/uL RDW Standard Deviation 41.6 fL 42.0 fL 41.6 fL RDW Coefficient of Variation 13.9 % 14.0 % 13.8 % Immature Granulocyte % (Auto) 0.1 % 0.2 % Immature Granulocyte # (Auto) 0.01 K/uL 0.01 K/uL Urine Color DK YELLOW Urine Appearance CLEAR Urine pH 6.0 Urine Specific [place] 1.026 Urine Protein NEG Urine Glucose (UA) NEG Urine Ketones TRACE Urine Occult Blood NEG Urine Nitrite NEG Urine Bilirubin NEG Urine Urobilinogen NEG Urine Leukocyte Esterase NEG Sodium Level 141 mmol/L 140 mmol/L Potassium Level 3.5 mmol/L 3.5 mmol/L Chloride Level 102 mmol/L 106 mmol/L Carbon Dioxide Level 31 mmol/L 28 mmol/L Anion Gap 8.0 mmol/L 6.0 mmol/L Blood Urea Nitrogen 14 mg/dl 9 mg/dl Creatinine 0.99 mg/dl 0.84 mg/dl Est Creatinine Clear Calc Drug Dose 69.3 ml/min 81.6 ml/min Estimated GFR () 75.4 92.0 Estimated GFR (Non- 65.1 79.3 BUN/Creatinine Ratio 13.9 11.1 Random Glucose 124 mg/dl 85 mg/dl Calcium Level 9.1 mg/dl 7.8 mg/dl Total Bilirubin 0.2 mg/dl Aspartate Amino Transf (AST/SGOT) 14 U/L Alanine Aminotransferase (ALT/SGPT) 19 U/L Alkaline Phosphatase 100 U/L Total Protein 7.6 gm/dl Albumin 3.1 gm/dl Globulin 4.5 gm/dl Albumin/Globulin Ratio 0.7 Lipase 62 U/L Lyme Disease IgG Antibody NEG Lyme Disease IgM Antibody NEG Prothrombin Time 10.7 SECONDS Prothromb Time International Ratio 1.0 Diagnostic Imaging: Renal US: 1. Normal sonographic appearance of the kidneys. However, this does not exclude the possibility of acute pyelonephritis. No renal abscess. No hydronephrosis. 2. Fatty liver. (Tanisha Gross ., P.A.-C.) Assessment & Plan Patient is a 52yo F with a h/o UTIs, HTN and anxiety/depression who initially presented with dysuria, flank pain, n/v and was diagnosed with acute bilateral pyelonephritis. Acute pyelonephritis: -Final urine cx from [facility] [place] showed no growth (05/02/16) but patient had already received partial abx treatments at that point, so results are inconclusive. -Has a significant hx of UTIs and has been hospitalized for R pyelonephritis before -Currently on day 2 of ceftriaxone for empiric treatment but no clear improvement; switched to IV Zosyn for broader coverage (including pseudomonas) -Not a septic profile: wbc count of 6.3, pt continues to remain afebrile, completed IV fluids -pain controlled with Dilaudid Anxiety/depression: -stable, cont home meds -is experiencing some insomnia 2/2 to hospital environment and anxiety, so provided benadryl 25mg PO PRN for sleep HTN: -BP controlled -continue home meds DVT ppx: Lovenox/SCDs Code status: Full Code Dispo: med/surg; plan to discharge home once clinical symptoms improve Current Inpatient Medications: Current Inpatient Medications Medications (Trade) Dose Ordered Sig/Shea Route Start Time Stop Time Status Last Admin Dose Admin Enoxaparin Sodium (Lovenox Inj) 40 mg Q24H SQ 05/07/17 09:00 06/06/17 08:59 05/07/17 07:54 40 MG Acetaminophen (Tylenol Tab) 650 mg Q4H PRN PO 05/06/17 20:45 06/05/17 20:44 Ondansetron HCl (Zofran Inj) 4 mg Q6H PRN IV 05/06/17 20:45 06/05/17 20:44 05/07/17 12:36 4 MG Acetaminophen/ Codeine Phosphate (Tylenol w/ Codeine #3 Tab) 1 tab Q4H PRN PO 05/06/17 20:45 8/11/17 20:44 05/07/17 07:55 1 TAB Ceftriaxone Sodium 1 gm/ Dextrose 50 ml @ 100 mls/hr Q24H IV 05/07/17 17:00 05/15/17 17:29 Phenazopyridine HCl (Pyridium Tab) 200 mg TID PO 05/06/17 21:00 05/08/17 20:59 05/07/17 07:53 200 MG Amlodipine Besylate (Norvasc Tab) 5 mg DAILY PO 05/07/17 09:00 06/06/17 08:59 05/07/17 07:53 5 MG Atenolol (Tenormin Tab) 50 mg BID PO 05/06/17 21:00 06/05/17 20:59 05/07/17 07:53 50 MG Fluoxetine HCl (Prozac Cap) 20 mg DAILY PO 05/07/17 09:00 06/06/17 08:59 05/07/17 07:53 20 MG Miscellaneous Information (Order Awaiting Action) 1 ea QS N/A 05/07/17 00:00 06/06/17 00:00 Miscellaneous Information (Order Awaiting Action) 1 ea QS N/A 05/07/17 00:00 06/06/17 00:00 Lorazepam (Ativan Tab) 0.5 mg BID PRN PO 05/06/17 20:45 06/05/17 20:44 05/06/17 21:51 0.5 MG Pantoprazole Sodium (Protonix Tab) 40 mg DAILY PO 05/07/17 09:00 06/06/17 08:59 05/07/17 07:52 40 MG Valsartan (Diovan Tab) 40 mg DAILY PO 05/07/17 09:00 06/06/17 08:59 05/07/17 07:53 40 MG Hydromorphone HCl (Dilaudid Inj) 0.5 mg Q4H PRN IV 05/07/17 03:30 05/21/17 03:29 05/07/17 12:14 0.5 MG (Tanisha Gross ., P.A.-C.) ATTENDING ADDENDUM care coordinated with APRIL Gross please refer to her notes for full details, I agree with her notes patient seen and examined, records reviewed by myself as well on exam, patient seen resting in bed, comfortable, in good spirits states right flank pain and suprapubic pain about the same no dysuria, fever/chills no other symptoms VS noted and reviewed oriented x 3 , not in distress, speaks in sentences with no effort nor accessory muscle use normal rate, regular rhythm, no murmurs clear breath sounds bilaterally non distended, soft, (+) moderate l>r CVA tenderness, moderate suprapubic tenderness no bipedal edema, erythema, warmth no neuro deficits WBC 6.3 Crea 0.84 ASSESSMENT/PLAN> POSSIBLE PYELONEPHRITIS, PARTIALLY TREATED - urine culture 05/02/17 unrevealing, collected after being on antibiotics - not much change with symptoms, broaden antibiotic coverage to Zosyn IV monitor response HTN resume usual meds other diagnoses and plan of care as per APRIL Gross's notes Carter Dobson MD (Carter Dobson MD)
[2017-05-07 15:18] VITALS: BP_SYST 158; PULSE 60; TEMP 36.5; O2SAT 92
[2017-05-07] MEDS ORDERED: PIPERACILL/TAZOBAC CONSULT ACTIVE PRN (15:30)
[2017-05-07] MEDS ORDERED: PIPERACILL/TAZOBAC IV 3.375 GM in DEXTROSE 5% 100ML IV ONE (16:00)
[2017-05-07] MEDS ORDERED: NURSING VERBAL MED ORDER ONE (16:30)
[2017-05-07] MEDS ORDERED: ONDANSETRON INJ 2 MG/ML 2 ML VIAL IV SCH (16:50)
[2017-05-07] MEDS ORDERED: CEFTRIAXONE SOD INJ 1 GM in DEXTROSE 5% ADD-VANTAGE 50ML 50 ML IV SCH (17:00)
[2017-05-07] MEDS: LORAZEPAM 0.5 MG TAB PO PRN (17:40)
[2017-05-07 19:00] VITALS: O2SAT 92
[2017-05-07 23:09] VITALS: BP 146/67; TEMP 36.7; O2SAT 96
[2017-05-07] MEDS: PIPERACILL/TAZOBAC IV 3.375 GM in DEXTROSE 5% 100ML 100 ML IV SCH (23:37)
[2017-05-07] MEDS: ZOLPIDEM TARTRATE 5 MG TAB PO PRN (23:37)
[2017-05-08] VITALS (7 sets, daily range): BP systolic 132–179; BP diastolic 70–94; PULSE 54–71; TEMP 36.4–36.8; O2SAT 93–97
[2017-05-08] MEDS: ONDANSETRON INJ 2 MG/ML 2 ML VIAL IV PRN ×2 (08:08→16:47)
[2017-05-08] MEDS: PIPERACILL/TAZOBAC IV 3.375 GM in DEXTROSE 5% 100ML 100 ML IV SCH ×3 (08:08→23:58)
[2017-05-08] MEDS: PANTOprazole SOD 40 MG TAB PO SCH (08:10)
[2017-05-08] MEDS: AMLODIPINE BESYLATE 5 MG TAB PO SCH (08:10)
[2017-05-08] MEDS: VALSARTAN 80 MG TAB PO SCH (08:11)
[2017-05-08] MEDS: FLUOXETINE HCL 10 MG CAP PO SCH (08:11)
[2017-05-08] MEDS: ENOXAPARIN 40 MG/0.4 ML SYR SQ SCH (08:12)
--- NOTE | 2017-05-08 13:59 | Progress Note ---
Medicine Progress Note Date & Time of Visit: May 08, 2017 at 13:49. (Tanisha Gross, P.A.-C.) Subjective Pt states that her pain has improved since yesterday. She no longer has flank pain and is only experiencing suprapubic pain with urination. No dysuria, hematuria, hesitancy. Continues to experience nausea after eating solid foods but Zofran helps to alleviate symptoms. Pain continues to be well-controlled.No fever, chills, vomiting or diarrhea. (Tanisha Gross, P.A.-C.) Objective Last 8 Hrs Date Time Temp Pulse Resp B/P (MAP) Pulse Ox O2 Delivery O2 Flow Rate FiO2 05/08/17 12:22 36.8 58 18 157/70 (99) 93 05/08/17 08:00 Room Air 05/08/17 07:27 36.4 66 165/77 (106) 96 Room Air Physical Exam: General-Afebrile, not in distress, alert and communicative Neck- Supple, no adenopathy Lungs-Clear breath sounds bilaterally Heart-RRR, no m/g/r Abdomen- Normal bowel sounds. Soft, non-distended. Mild tenderness in suprapubic area bilaterally with palpation. No CVA tenderness. Extremities-Warm to touch with pulses 2+ bilaterally in both extremities. No edema. Neuro-A&Ox3. Motor and sensory function intact. Skin: Warm and dry (Tanisha Gross, P.A.-C.) Assessment & Plan Patient is a 52yo F with a h/o UTIs, HTN and anxiety/depression who initially presented with dysuria, flank pain, n/v and was diagnosed with acute bilateral pyelonephritis. Acute pyelonephritis: improving -Final urine cx from [facility] showed no growth (05/02/16) but patient had already received partial abx treatments at that point, so results are inconclusive. -Has a significant hx of UTIs and has been hospitalized for R pyelonephritis before -on day 2 of IV Zosyn with improvement; will continue treatment -pain controlled with Dilaudid -if improved tomorrow, will consider discharging on PO Levaquin (has experienced some nausea while taking previously but denies a true allergy) Anxiety/depression: -stable, cont home meds -is experiencing some insomnia 2/2 to hospital environment and anxiety, so provided benadryl 25mg PO PRN for sleep HTN: -BP has remained slightly elevated today (~160s/70s) so will add 0.1mg Clonidine PO Q6 PRN if SBP > 160. -continue home meds DVT ppx: Lovenox/SCDs Code status: Full Code Dispo: med/surg; plan to discharge home once clinical symptoms improve Current Inpatient Medications: Current Inpatient Medications Medications (Trade) Dose Ordered Sig/Shea Route Start Time Stop Time Status Last Admin Dose Admin Enoxaparin Sodium (Lovenox Inj) 40 mg Q24H SQ 05/07/17 09:00 06/06/17 08:59 05/08/17 08:12 40 MG Acetaminophen (Tylenol Tab) 650 mg Q4H PRN PO 05/06/17 20:45 06/05/17 20:44 05/08/17 13:17 650 MG Ondansetron HCl (Zofran Inj) 4 mg Q6H PRN IV 05/06/17 20:45 06/05/17 20:44 05/08/17 08:08 4 MG Acetaminophen/ Codeine Phosphate (Tylenol w/ Codeine #3 Tab) 1 tab Q4H PRN PO 05/06/17 20:45 06/05/17 20:44 05/07/17 17:41 1 TAB Amlodipine Besylate (Norvasc Tab) 5 mg DAILY PO 05/07/17 09:00 06/06/17 08:59 05/08/17 08:10 5 MG Atenolol (Tenormin Tab) 50 mg BID PO 05/06/17 21:00 06/05/17 20:59 05/08/17 08:11 50 MG Fluoxetine HCl (Prozac Cap) 20 mg DAILY PO 05/07/17 09:00 06/06/17 08:59 05/08/17 08:11 20 MG Miscellaneous Information (Order Awaiting Action) 1 ea QS N/A 05/07/17 00:00 06/06/17 00:00 Miscellaneous Information (Order Awaiting Action) 1 ea QS N/A 05/07/17 00:00 06/06/17 00:00 Lorazepam (Ativan Tab) 0.5 mg BID PRN PO 05/06/17 20:45 06/05/17 20:44 05/07/17 17:40 0.5 MG Pantoprazole Sodium (Protonix Tab) 40 mg DAILY PO 05/07/17 09:00 06/06/17 08:59 05/08/17 08:10 40 MG Valsartan (Diovan Tab) 40 mg DAILY PO 05/07/17 09:00 06/06/17 08:59 05/08/17 08:11 40 MG Hydromorphone HCl (Dilaudid Inj) 0.5 mg Q4H PRN IV 05/07/17 03:30 05/21/17 03:29 05/07/17 19:50 0.5 MG Piperacillin Sod/ Tazobactam Sod 3.375 gm/Dextrose 115 ml @ 28.75 mls/ hr Q8@0000,0800,1600 IV 05/08/17 00:00 05/17/17 15:59 05/08/17 08:08 28.75 MLS/HR Diphenhydramine HCl (Benadryl Cap) 25 mg HS PRN PO 05/07/17 14:45 06/06/17 14:44 05/07/17 19:50 25 MG Zolpidem Tartrate (Ambien Tab) 5 mg HS PRN PO 05/07/17 14:45 06/06/17 14:44 05/07/17 23:37 5 MG Piperacillin Sod/ Tazobactam Sod (Consult) 1 ea UD PRN N/A 05/07/17 15:30 06/06/17 15:29 Docusate Sodium (coLACE CAP) 100 mg BID PRN PO 05/08/17 14:00 06/07/17 13:59 UNV (Tanisha Gross ., P.A.-C.) ATTENDING ADDENDUM care coordinated with APRIL Gross please refer to her notes for full details, I agree with her notes patient seen and examined, records reviewed by myself as well on exam, patient seen sitting up in bed, comfortable states flank pain has resolved, but still has some mild suprapubic discomfort had some nausea this am no problems with urination no other symptoms VS noted and reviewed oriented ,x 3 not in distress, speaks in sentences with no effort nor accessory muscle use normal rate, regular rhythm, no murmurs clear breath sounds bilaterally non distended, soft, mild suprapubic tenderness no bipedal edema, erythema, warmth no neuro deficits ASSESSMENT/PLAN> POSSIBLE PARTIALLY TREATED PYELONEPHRITIS - improving with Zosyn IV possible transition to Levaquin PO upon d/c tomorrow HYPERTENSION - monitor bp Clonidine added other diagnoses and plan of care as per APRIL Gross's notes Carter Dobson MD (Carter Dobson MD)
[2017-05-08] MEDS ORDERED: DOCUSATE SODIUM 100 MG CAP PO PRN (14:00)
[2017-05-08] MEDS ORDERED: CLONIDINE HCL 0.1 MG TAB PO PRN (14:15)
[2017-05-08] MEDS: LORAZEPAM 0.5 MG TAB PO PRN (18:09)
[2017-05-08] MEDS: ACETAMINOPHEN/CODEINE 300/30MG TAB PO PRN (18:10)
[2017-05-08] MEDS: HYDROmorphone INJ 0.5 MG/0.5 ML SYR IV PRN (19:45)
[2017-05-08] MEDS: ZOLPIDEM TARTRATE 5 MG TAB PO PRN (23:14)
[2017-05-09] MEDS: ONDANSETRON INJ 2 MG/ML 2 ML VIAL IV PRN (00:02)
[2017-05-09 05:47] LABS: HEMATOCRIT 36.2 % (37-47); MEAN CELL VOLUME 81.9 fL (80-100); MEAN CORPUSCULAR HEMOGLOBIN 27.1 pg (25-34); MEAN CORPUSCULAR HGB CONC 33.1 g/dl (32-36); MEAN PLATELET VOLUME 8.6 fL (7.4-10.4); PLATELET COUNT 233 K/uL (130-400); RED BLOOD COUNT 4.42 M/uL (4.2-5.4); WHITE BLOOD COUNT 5.45 K/uL (4.8-10.8)
[2017-05-09 06:16] LABS: CREATININE 0.8 mg/dl (0.60-1.20)
[2017-05-09 07:17] VITALS: BP 147/70; PULSE 67; TEMP 36.6; O2SAT 97
[2017-05-09] MEDS: PANTOprazole SOD 40 MG TAB PO SCH (07:57)
[2017-05-09] MEDS: VALSARTAN 80 MG TAB PO SCH (07:58)
[2017-05-09] MEDS: AMLODIPINE BESYLATE 5 MG TAB PO SCH (07:58)
[2017-05-09] MEDS: FLUOXETINE HCL 10 MG CAP PO SCH (07:58)
[2017-05-09] MEDS: ENOXAPARIN 40 MG/0.4 ML SYR SQ SCH (07:59)
[2017-05-09] MEDS ORDERED: LEVOFLOXACIN 500 MG TAB PO SCH (09:00)
[2017-05-09 11:44] VITALS: BP 138/73; PULSE 54; TEMP 36.7; O2SAT 97
--- NOTE | 2017-05-09 13:49 | Progress Note ---
Medicine Progress Note Date & Time of Visit: May 09, 2017 at 13:43. Subjective seen resting in bed, comfortable family at bedside states she feels much better overall no flank/back/abdominal pain no problems urinating no nausea, vomiting tolerating levaquin well no other symptoms ambulating with no problems states she is now ready and would like to be discharged today Objective Last 8 Hrs Date Time Temp Pulse Resp B/P (MAP) Pulse Ox O2 Delivery O2 Flow Rate FiO2 05/09/17 11:44 36.7 54 18 138/73 (94) 97 Room Air 05/09/17 08:00 Room Air 05/09/17 07:17 36.6 67 18 147/70 (95) 97 Room Air Physical Exam: General- oriented x 3, not in distress, speaks in sentences with no effort Eyes- anicteric Neck- no JVD Lungs- clear breath sounds bilaterally Heart- regular rhythm; no murmur, normal rate Abdomen- normal bowel sounds, soft, nontender Extremities- no pretibial edema, no calf tenderness Neuro- alert, oriented x 3; no gross deficits Skin- warm & dry Laboratory Results: Last 24 Hours Test 05/09/17 05:27 White Blood Count 5.45 K/uL Red Blood Count 4.42 M/uL Hemoglobin 12.0 g/dL Hematocrit 36.2 % Mean Corpuscular Volume 81.9 fL Mean Corpuscular Hemoglobin 27.1 pg Mean Corpuscular Hemoglobin Concent 33.1 g/dl RDW Standard Deviation 41.5 fL RDW Coefficient of Variation 13.7 % Platelet Count 233 K/uL Mean Platelet Volume 8.6 fL Creatinine 0.80 mg/dl Est Creatinine Clear Calc Drug Dose 85.7 ml/min Estimated GFR () 97.6 Estimated GFR (Non- 84.2 Assessment & Plan Patient is a 52yo F with a h/o UTIs, HTN and anxiety/depression who initially presented with dysuria, flank pain, n/v and was diagnosed with acute bilateral pyelonephritis. Acute pyelonephritis: improving -Final urine cx from [facility] showed no growth (05/02/16) but patient had already received partial abx treatments at that point, so results are inconclusive. was also seen at the ER 2 days prior to admission, CT abd/pelvis suggestive of pyelonephritis, given antibiotics PO but with no improvement presented with flank pain, suprapubic pain, dysuria - UA: unremarkable given 2 days of IV Zosyn clinically improved - transitioned to Levaquin PO tolerating well continue Levaquin 500mg po daily x 6 more days to complete 7 days Levaquin course Anxiety/depression: -stable, cont home meds HTN - mild elevation of BP noted while admitted - monitor as outpatient Dispo d/c home ff up with PCP in 1 week Current Inpatient Medications: Current Inpatient Medications Medications (Trade) Dose Ordered Sig/Shea Route Start Time Stop Time Status Last Admin Dose Admin Enoxaparin Sodium (Lovenox Inj) 40 mg Q24H SQ 05/07/17 09:00 06/06/17 08:59 05/09/17 07:59 40 MG Acetaminophen (Tylenol Tab) 650 mg Q4H PRN PO 05/06/17 20:45 06/05/17 20:44 05/08/17 13:17 650 MG Ondansetron HCl (Zofran Inj) 4 mg Q6H PRN IV 05/06/17 20:45 06/05/17 20:44 05/09/17 00:02 4 MG Acetaminophen/ Codeine Phosphate (Tylenol w/ Codeine #3 Tab) 1 tab Q4H PRN PO 05/06/17 20:45 06/05/17 20:44 05/08/17 18:10 1 TAB Amlodipine Besylate (Norvasc Tab) 5 mg DAILY PO 05/07/17 09:00 06/06/17 08:59 05/09/17 07:58 5 MG Atenolol (Tenormin Tab) 50 mg BID PO 05/06/17 21:00 06/05/17 20:59 05/09/17 07:58 50 MG Fluoxetine HCl (Prozac Cap) 20 mg DAILY PO 05/07/17 09:00 06/06/17 08:59 05/09/17 07:58 20 MG Miscellaneous Information (Order Awaiting Action) 1 ea QS N/A 05/07/17 00:00 06/06/17 00:00 Miscellaneous Information (Order Awaiting Action) 1 ea QS N/A 05/07/17 00:00 06/06/17 00:00 Lorazepam (Ativan Tab) 0.5 mg BID PRN PO 05/06/17 20:45 06/05/17 20:44 05/08/17 18:09 0.5 MG Pantoprazole Sodium (Protonix Tab) 40 mg DAILY PO 05/07/17 09:00 06/06/17 08:59 05/09/17 07:57 40 MG Valsartan (Diovan Tab) 40 mg DAILY PO 05/07/17 09:00 06/06/17 08:59 05/09/17 07:58 40 MG Hydromorphone HCl (Dilaudid Inj) 0.5 mg Q4H PRN IV 05/07/17 03:30 05/21/17 03:29 05/08/17 19:45 0.5 MG Diphenhydramine HCl (Benadryl Cap) 25 mg HS PRN PO 05/07/17 14:45 06/06/17 14:44 05/08/17 19:43 25 MG Zolpidem Tartrate (Ambien Tab) 5 mg HS PRN PO 05/07/17 14:45 06/06/17 14:44 05/08/17 23:14 5 MG Docusate Sodium (coLACE CAP) 100 mg BID PRN PO 05/08/17 14:00 06/07/17 13:59 Clonidine HCl (Catapres Tab) 0.1 mg Q6H PRN PO 05/08/17 14:15 06/07/17 14:14 05/08/17 20:35 0.1 MG Levofloxacin (Levaquin Tab) 500 mg DAILY PO 05/09/17 09:00 05/19/17 08:59 05/09/17 08:43 500 MG
[2017-05-09] MEDS ORDERED: ONDA4TAB65 PO (13:53)
[2017-05-09] MEDS ORDERED: LEVO1TAB34 PO (13:53)
[2017-05-09] MEDS ORDERED: SENN8.6T7 PO (13:54)
[2017-05-09] MEDS ORDERED: CEFU1TAB33 PO (14:07)
[2017-05-09 14:10] VITALS: BP 138/73; PULSE 54; TEMP 36.7; O2SAT 97
--- NOTE | 2017-05-09 14:13 | Discharge Instructions ---
Discharge Instructions Date of Service May 09, 2017. Admission Reason for Admission: Acute Pyelonephritis Discharge Discharge Diagnosis / Problem: Urinary Tract Infection Discharge Goals Goal(s): Diagnostic testing, Therapeutic intervention Activity Recommendations Activity Limitations: as noted below (increase activity gradually as tolerated) Lifting Limitations: until after follow-up appointment Exercise/Sports Limitations: until after follow-up appointment . Instructions / Follow-Up Instructions / Follow-Up PLEASE REVIEW YOUR NEW MEDICATION LIST AND FOLLOW INSTRUCTIONS CAREFULLY. CALL YOUR PRIMARY CARE PHYSICIAN OR RETURN TO ER IMMEDIATELY IF WITH RECURRENCE OF SYMPTOMS, FLANK/BACK/ABDOMINAL PAIN, PROBLEMS WITH URINATION, NAUSEA/VOMITING, FEVER/ CHILLS. ENSURE ADEQUATE DAILY FLUID INTAKE. EAT YOGURT DAILY WHILE ON ANTIBIOTICS AND AT LEAST 3 DAYS AFTER. FOLLOW UP WITH PRIMARY CARE PHYSICIAN DR. KHANNA AT [facility] ON Thursday05/11/17 AT 1:45PM. Current Hospital Diet Patient's current hospital diet: Regular Diet Discharge Diet Recommended Diet: AHA Diet (Heart Healthy) Pending Studies Studies pending at discharge: no Medical Emergencies . Who to Call and When: Medical Emergencies: If at any time you feel your situation is an emergency, please call 911 immediately. . Non-Emergent Contact Non-Emergency issues call your: Primary Care Provider Call Non-Emergent contact if: you have a fever, your pain is not controlled, your pain is worsening, you have any medication questions . . "Provider Documentation" section prepared by Carter Dobson. . VTE Core Measure Inpt VTE Proph given/why not?: Enoxaparin (Lovenox)SQ, SCD's [place] Drug Monitoring Program Search Results: patient reviewed within database
--- NOTE | 2017-05-09 14:23 | Discharge Summary ---
Discharge Summary Date of Service May 09, 2017. Discharge Summary Admission Date: May 06, 2017 at 20:36 Discharge Date: May 09, 2017 Discharge Disposition: Home Principal Diagnosis: Acute pyelonephritis Secondary Diagnoses/Problems: Please refer to hospital course below. Procedures: ABD/PELVIS IV CONTRAST ONLY 05/04/17 CLINICAL HISTORY: 52 years-old Female presenting with Pt c/o RUQ abd pain. TECHNIQUE: Multidetector CT of the abdomen and pelvis was performed after the administration of intravenous contrast. IV contrast: 93 mL of Optiray 320. COMPARISON: 05/16/2012. CT DOSE: The estimated cumulative dose is 578.06 mGy.cm. 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 Lung bases: Lung bases clear. No pericardial or pleural effusion. Liver: Normal morphology. No liver lesion. Patent hepatic vasculature. Biliary: No intrahepatic or extrahepatic biliary ductal dilatation. Normal gallbladder. Pancreas: Normal. Spleen: Normal. Adrenal glands: Normal. Kidneys and ureters: Nonspecific perinephric stranding and trace fluid. No hydronephrosis or hydroureter. Gastrointestinal tract: Normal appendix. No bowel obstruction. Peritoneal cavity: No free fluid or intraperitoneal gas. Bladder: Normal. Pelvic organs: Uterus surgically absent. Vasculature: Aorta and IVC patent and normal in caliber. Lymph nodes: No enlarged lymph nodes in the abdomen or pelvis. Abdominal wall: Normal. Musculoskeletal: Normal. IMPRESSION: 1. Nonspecific perinephric stranding and fluid. This could merely relate to intravenous fluid administration. Although there is no CT evidence of cystitis, correlate with urinalysis to exclude infection. No obstruction. 2. No other evidence of acute intra-abdominal pathology. RENAL ULTRASOUND 05/06/17 CLINICAL HISTORY: Flank pain. Bilateral kidney infection. COMPARISON STUDY: CT of the abdomen and pelvis May 04, 2017. TECHNIQUE: Sonography of the kidneys and the urinary bladder was performed. FINDINGS: The right kidney measures 11.6 cm in maximal dimension and the left measures 10.8 cm. There is no hydronephrosis. Renal echogenicity, size and cortical thickness are normal. There is no fluid collection to suggest renal abscess. No calculi or masses are identified. Both ureteral jets were identified. There is fatty infiltration of the liver. IMPRESSION: 1. Normal sonographic appearance of the kidneys. However, this does not exclude the possibility of acute pyelonephritis. No renal abscess. No hydronephrosis. 2. Fatty liver. Pending Studies/Follow-Up: Please refer to hospital course below. Medication Reconciliation New Medications: Cefuroxime Axetil (Cefuroxime Axetil) 250 Mg Tab 1 TAB PO BID for 7 Days, #14 TABS 0 Refills Metoclopramide (Reglan) 10 Mg Tab 10 MG PO Q6H PRN for nausea, #5 TAB NAUSEA Sennosides-Docusate Sodium (Senokot S) 1 Tab Tab 1 TAB PO DAILY PRN for Constipation, #10 TAB 1 Refill Continued Medications: Albuterol Sulfate (Proair Respiclick) 108 Mcg/Act Aer 2 PUFFS INH QID PRN for SOB/Wheezing Amlodipine Besylate (Norvasc) 5 Mg Tab 5 MG PO DAILY, TAB Atenolol (Tenormin) 50 Mg Tab 50 MG PO BID, 0 Refills Estrogens, Conjugated (Premarin) 0.45 Mg Tab 0.9 MG PO DAILY, TAB Fluoxetine (Prozac) 10 Mg Cap 20 MG PO DAILY, 0 Refills Ibuprofen (Advil) 200 Mg Tab 400 MG PO UD PRN for Headache or Pain, TAB Lorazepam (Lorazepam) 1 Mg Tab 0.5 MG PO UD PRN for sleep/migraine, #40 Mometasone Furoate (Nasal) (Mometasone Furoate) 50 Mcg/Act Spr 2 SPRAYS DOUGIE DAILY PRN for Seasonal Allergies Oxycodone/Acetaminophen 5MG/325MG (Percocet 5MG/325MG) Tab 1-2 TABLETS PO Q4H PRN for Pain, TAB PAIN Pantoprazole Sodium (Protonix) 40 Mg Tab 40 MG PO DAILY, #30 TAB Valsartan (Diovan) 40 Mg Tab 1 TAB PO DAILY Discontinued Medications: Amoxicillin & Pot Clavulanate (Augmentin 875-125 mg) 1 Tab Tab 1 TAB PO BID, #14 TAB STARTED 05/04/17 FOR 10 DAYS Admission Information HPI (per Admitting provider): 52 yo F with h/p pyelonephritis in the past presents tonight with worsening pyelonephritis symptoms after failing outpatient antibiotic therapy. She reports feeling nauseated with malaise for about 4-7 days, then subsequently developed dysuria, urinary urgency, hesitation and incomplete voiding. She reports that her back was hurting then. She states that she called her PCP for a script to treat what she thought was a bladder infection. Cipro was called in for her, however, she couldn't reach someone in the office in time so she went to see [facility] urgent care center on [facility] and was prescribed Macrobid. She did not improve and became dizzy and nautious (she has an allergy to this medication), so two days later she picked up the Cipro, however , she still didn't improve so after another two days she came to the [facility] ER. At that time she was afebrile, WBC was 12K, UA was clear, and CT scan of the A/ P revealed nonspecific perinephric stranding. She was diagnosed with bilateral pyelonephritis and was sent home with Augmentin and Percocet, however, she was persistently vomiting and feeling poorly and her back pain was even worse not helped by the Percocet. She still has all symptoms and just in the ER had an episode of diarrhea. She denies fever but does report chills. She has weakness but is able to walk without assistance. Her sisters are with her at bedside. She reports a history of MS and UC but is not on medications for either. She does have some abdominal pain that is generalized and goes to her back with CVA tenderness on both sides. Of note, she has documented allergies to both Nitrofurantoin and Levaquin in the past. Physical Exam (per Admitting): GEN: WNWD, in no acute distress, alert and appropriate HEENT: NC/AT, PERRL, normal sclerae/conjunctivae CARDIO: reg rate, S1/2 heard without m/g/r LUNGS: CTA bilaterally, no crackles, rales or wheezes, good diaphragmatic excursion ABD: soft, generalized tenderness all over, non-distended, no rebound or guarding, +BS, +CVA tenderness bilaterally (pt didn't jump off table or recoil, just stated pain present) EXTREMITY: RP and DP palpable 2+ bilat, no LE swelling or edema, extremities are warm and well-perfused NEURO: CN 2-12 grossly intact, sensation intact throughout MUSC: 5/5 strength throughout, moves around the bed with ease. SKIN: warm and dry Hospital Course Patient is a 52yo F with a h/o UTIs, HTN and anxiety/depression who initially presented with dysuria, flank pain, n/v and was diagnosed with acute bilateral pyelonephritis. Acute pyelonephritis patient has been prescribed with Cipro and Macrobid as outpatient with no improvement 2 days prior to admission, was seen at the ER, CT abd/pelvis suggestive of pyelonephritis, given Augmentin PO but with no improvement only available urine culture is from [facility] showed no growth (05/02/16) but patient had already received partial abx treatments at that point - presented with persistent flank pain, suprapubic pain, dysuria - on admission... UA: unremarkable Renal US: unremarkable, except for fatty liver given 1 day of Ceftriaxone, not much improvement, then transitioned to IV Zosyn, received x 2 days symptoms resolved, clinically improved overall - will avoid Levaquin and Bactrim as patient is taking Prozac will try Cefuroxime 250mg po BID x 7 days - please monitor response advised to take yogurt/probiotics Anxiety/depression: -stable, continue Prozac HTN - mild elevation of BP noted while admitted - monitor as outpatient - continue usual BP meds- Amlodipine, Atenolol, Valsartan Dispo d/c home ff up with PCP on Thursday05/11/17 Total time spent on discharge = 35 minutes This includes examination of the patient, discharge planning, medication reconciliation, and communication with other providers. Discharge Instructions Discharge Instructions Date of Service May 09, 2017. Admission Reason for Admission: Acute Pyelonephritis Discharge Discharge Diagnosis / Problem: Urinary Tract Infection Discharge Goals Goal(s): Diagnostic testing, Therapeutic intervention Activity Recommendations Activity Limitations: as noted below (increase activity gradually as tolerated) Lifting Limitations: until after follow-up appointment Exercise/Sports Limitations: until after follow-up appointment . Instructions / Follow-Up Instructions / Follow-Up PLEASE REVIEW YOUR NEW MEDICATION LIST AND FOLLOW INSTRUCTIONS CAREFULLY. CALL YOUR PRIMARY CARE PHYSICIAN OR RETURN TO ER IMMEDIATELY IF WITH RECURRENCE OF SYMPTOMS, FLANK/BACK/ABDOMINAL PAIN, PROBLEMS WITH URINATION, NAUSEA/VOMITING, FEVER/ CHILLS. ENSURE ADEQUATE DAILY FLUID INTAKE. EAT YOGURT DAILY WHILE ON ANTIBIOTICS AND AT LEAST 3 DAYS AFTER. FOLLOW UP WITH PRIMARY CARE PHYSICIAN DR. KHANNA AT [facility] ON Thursday05/11/17 AT 1:45PM. Current Hospital Diet Patient's current hospital diet: Regular Diet Discharge Diet Recommended Diet: AHA Diet (Heart Healthy) Pending Studies Studies pending at discharge: no Medical Emergencies . Who to Call and When: Medical Emergencies: If at any time you feel your situation is an emergency, please call 911 immediately. . Non-Emergent Contact Non-Emergency issues call your: Primary Care Provider Call Non-Emergent contact if: you have a fever, your pain is not controlled, your pain is worsening, you have any medication questions . . "Provider Documentation" section prepared by Carter Dobson. . VTE Core Measure Inpt VTE Proph given/why not?: Enoxaparin (Lovenox)SQ, SCD's [place] Drug Monitoring Program Search Results: patient reviewed within database
[2017-05-09] MEDS ORDERED: METO-157 PO (14:38)
== END 2017-05-09 14:59 | disposition home or self-care (01) | DRG 690 ==
LOC: C.EDB 17:02 → C.MS2W 20:36 → ENRESERV 20:40
PROVIDERS: ADMIT Hospitalist; ATTEND Internal Medicine
DX: N10 Acute pyelonephritis (principal); K51.90 Ulcerative colitis, unspecified, without complications; K21.9 Gastro-esophageal reflux disease without esophagitis; I10 Essential (primary) hypertension; G35 Multiple sclerosis; F41.9 Anxiety disorder, unspecified; F32.9 Major depressive disorder, single episode, unspecified; Z51.81 Encounter for therapeutic drug level monitoring; Z79.899 Other long term (current) drug therapy; Z87.440 Personal history of urinary (tract) infections; Z82.49 Family history of ischemic heart disease and other diseases of the circulatory system

== ENCOUNTER 2019-09-26 07:29 | Inpatient (IN) ==
--- NOTE | 2019-09-26 08:12 | XRay Report ---
XR chest 1V portable HISTORY: 54 years-old Female Shortness of breath acute shortness of breath COMPARISON: Chest radiograph 09/19/2019 TECHNIQUE: Portable AP view the chest FINDINGS: Cardiomediastinal and hilar silhouettes are within normal limits. No pneumothorax, pleural effusion, focal airspace consolidation or overt pulmonary edema. Mild degenerative changes of the spine. Mild c onvex left curvature of the lower thoracic spine. IMPRESSION: No acute process. The above report was generated using voice recognition software. It may contain grammatical, syntax o r spelling errors. Electronically signed by: Joshua Diaz M.D. 09/26/2019 8:10 AM
[2019-09-26] MEDS ORDERED: ONDANSETRON INJ 2 MG/ML 2 ML VIAL IV STA (08:29)
[2019-09-26] MEDS: HYDROmorphone INJ 0.5 MG/0.5 ML SYR IV PRN ×2 (08:39→10:12)
[2019-09-26 08:46] LABS: Albumin Level 2.7 gm/dl (3.4-5.0); BUN Creatinine Ratio 16.3 (10-20); Calcium 8.9 mg/dl (8.5-10.1); Est GFR (African American) 105.7; Est GFR (Non-African American) 91.2; Potassium 3.3 mmol/L (3.5-5.1)
[2019-09-26 08:48] LABS: Albumin Globulin Ratio 0.6 (0.9-2); Bilirubin,Total 0.5 mg/dl (0.2-1); Globulin 4.7 gm/dl (2.5-4.0); Total Protein 7.4 gm/dl (6.4-8.2)
[2019-09-26 09:04] LABS: Basophils # (auto) 0.02 K/uL (0-0.2); Basophils % (auto) 0.2 %; Eosinophils % (auto) 1.7 %; Hematocrit (blood only) 34.9 % (37-47); Hemoglobin 11.5 g/dL (12.0-16.0); Immature Granulocytes # (auto) 0.02 K/uL (0.00-0.02); Immature Granulocytes % (auto) 0.2 %; Lymphocytes # (auto) 1.06 K/uL (1.2-3.4); Lymphocytes % (auto) 9.1 %; Mean Corpuscular Hemoglobin 26.7 pg (25-34); Mean Corpuscular Volume 81.2 fL (80-100); Mean Platelet Volume 8.7 fL (7.4-10.4); Monocytes # (auto) 0.62 K/uL (0.11-0.59); Monocytes % (auto) 5.3 %; Neutrophils # (auto) 9.79 K/uL (1.4-6.5); Neutrophils % (auto) 83.5 %; Platelet Count 335 K/uL (130-400); RDW Coefficient of Variation 15.3 % (11.5-14.5); RDW Standard Deviation 44.8 fL (36.4-46.3); White Blood Count 11.71 K/uL (4.8-10.8)
[2019-09-26] MEDS ORDERED: IOVERSOL 100ml IV PRN (09:12)
[2019-09-26 09:34] LABS: Appearance Urine Clear (Clear); Bacteria Urine Automated 2+ (Negative); Bilirubin Urine Negative (Negative); Blood Urine Negative (Negative); Color Urine Dark Yellow; Epithelial Cell Urine Auto >30 /lpf (0-5); Glucose Urine UA Negative (Negative); Ketones Urine Trace (Negative); Leukocyte Esterase Urine Negative (Negative); Nitrite Urine Negative (Negative); RBC Urine Automated 0-4 /hpf (0-4); Specific Gravity Urine > 1.045 (1.000-1.030); Urobilinogen Urine Negative (Negative); pH Urine >= 9.0 (4.5-7.5)
--- NOTE | 2019-09-26 09:35 | CT Scan Report ---
CHEST CTA for PULMONARY ARTERIES CT DOSE: 304.70 mGy.cm HISTORY: Hypoxia. Shortness of breath. TECHNIQUE: Multiaxial CT images of the chest were performed following the intravenous administration of contrast to evaluate the pulmonary arteries. Maximal intensity projection images were also obtaine d. A dose lowering technique was utilized adhering to the principles of ALARA. COMPARISON STUDY: Chest CTA 02/21/2019. FINDINGS: Normal caliber thoracic aorta with no evidence for dissection. No pleural or pericardial ef fusions. The heart is top normal in size. No filling defects within the pulmonary arteries to suggest pulmonary embolus. Limited views of the upper abdomen demonstrate a normal liver and spleen. The vis ualized adrenal glands are unremarkable. Normal esophagus. Subcentimeter mediastinal lymph nodes do n ot meet CT criteria for pathologic involvement. Borderline enlarged bilateral hilar lymph nodes measu ring up to 1 cm in short axis diameter. No suspicious lytic or blastic osseous lesions. No pneumothor ax. The central airways are patent. Interval development of scattered patchy groundglass and nodular airspace opacities seen within the lungs. These are most pronounced within the upper lobes and a some what perihilar distribution. This is nonspecific but favors an atypical pneumonia. Stable 4 mm nodule within the left upper lobe on image 206. This demonstrates greater than 2 year stability and is ther efore considered to be benign. IMPRESSION: 1. No evidence for pulmonary embolus. 2. Interval development of scattered patchy groundglass and nodular airspace opacities seen within th e lungs. These are most pronounced within the upper lobes and a somewhat perihilar distribution. This is nonspecific but favors an atypical pneumonia. 3. A few prominent bilateral hilar lymph nodes. This may be reactive. Electronically signed by: Nadeem Pettit M.D. 09/26/2019 9:34 AM
[2019-09-26] MEDS ORDERED: cefTRIAXone SODIUM 2,000 MG/70 ML BAG IV STA (09:37)
[2019-09-26] MEDS ORDERED: DOXYCYCLINE HYCLATE 100 MG in DEXTROSE 5% 100 ML IV STA (09:37)
[2019-09-26 09:40] LABS: Protein Urine Negative (Negative); Sulfosalicylic Acid Urine Negative (Negative)
--- NOTE | 2019-09-26 10:28 | History & Physical Report ---
Date of Service September 26, 2019 Assessment & Plan (1) Atypical pneumonia: - Admit to med surg -Supportive therapy with nebulizers, Mucinex, Tessalon Perles, O2 as needed, incentive spirometry, flutter -Checking Legionella urine, check influenza swab now -Continue on IV Rocephin and doxycycline -Patient with history of ulcerative colitis and multiple sclerosis, does not appear to be on any biological agents, therefore she is immunocompetent. -Consider possible sarcoid work-up if concerning with presentation of atypical pneumonia involving the upper lobes as well as SX including polyarthralgia. -Start on IVFs at 125 ml/hr x 1 days (2) SOB (shortness of breath): -Secondary to that above (3) Hypertension: -Continue irbesartan 75 mg tablet every morning, carvedilol 6.25 mg twice daily, amlodipine 2.5 mg every morning (4) GERD (gastroesophageal reflux disease): -Continue omeprazole 40 mg every morning (5) Depression: (6) Anxiety: -Continue Prozac 40 mg HS, holding lorazepam for now with hypoxia, may resume once oxygenation improved (7) Pericarditis: -Continue colchicine 0.6 mg BID , Motrin 600 mg TID (8) Acute bronchitis: - Hx of such, had similar presentation over the summer (9) Anemia: - hgb slightly depressed at 11.5, follow with am labs, consider iron studies (10) Hypokalemia: - 3.3 on admission, replace with PO KCl- - Follow am labs CODE: FULL Dispo: From home, discharge likely within 1-2 days History of Present Illness Primary Care Provider: Cheyenne Kimball MD This is a 54 yo M with recent URI treated with azithromycin as an outpatient, chronic fatigue and malaise, anxiety and depression, HTN, HLD, breast cancer, m ultiple sclerosis, ulcerative colitis, and recent pericarditis treated with colchicine and motrin. She reports that her symptoms including shortness of breath, fatigue, malaise, nausea, vomiting, diarrhea started last Thursday and has been worsening since. She reports being unable to walk across the room approximately 20 feet without becoming winded at this point. She denies any cough or sputum production. She denies any fevers, chills or sweats. Patient notes that she has had a poor appetite, has been drinking very little fluids and is having issues with dry heaves and nausea. She also notices her urine is dark. CT of the chest was completed and is negative for pulmonary embolism, showing infiltrate in bilateral upper lobes, suspicious for atypical pneumonia. Patient has been placed on 3L via NC in the ER, IV Rocephin and doxycycline. Chemistry panel is notable for K+ = 3.3, WBC = 11.71, hemoglobin = 11.5 Allergies Allergy/AdvReac Type Severity Reaction Status Date / Time nitrofurantoin Allergy Intermediate NAUSEA, Verified 09/26/19 09:20 INCREASED HEART RATE pollen extracts Allergy Intermediate ITCHY Verified 09/26/19 09:20 EYES, SNEEZING, CONGESTION Sulfa (Sulfonamide AdvReac Severe SEVERE Verified 09/26/19 09:20 Antibiotics) VOMITIN AND NAUSEA levofloxacin AdvReac Intermediate NAUSEA, Verified 09/26/19 09:20 INCREASED HEART RATE Home Medications Home Medications Medication Instructions Recorded Confirmed Type fexofenadine [Seble Allergy] 180 mg PO QAM PRN 02/11/19 09/26/19 History fluticasone propionate [Flonase 1 spray INTRANASAL DAILY PRN 02/11/19 09/26/19 History Allergy Relief] fluticasone propionate [Flovent 2 puff INHALATION BID 02/11/19 09/26/19 History HFA] [id number] 250 250 mg PO QAM tab 04/25/19 09/26/19 History [id number] HCl-herb 124 12.5 mg chewable tablet carvedilol 6.25 mg tablet 6.25 mg PO BID 08/02/19 09/26/19 History irbesartan 75 mg tablet 75 mg PO QAM 08/02/19 09/26/19 History lorazepam 1 mg tablet See Rx Instructions .ROUTE 08/30/19 09/26/19 Rx .COMPLEX #40 tablet albuterol sulfate 90 mcg/actuation 1 puffs INH QID PRN #8 gm 09/06/19 09/26/19 Rx aerosol inhaler amlodipine 2.5 mg PO QAM 09/19/19 09/26/19 History colchicine 0.6 mg PO BID #60 tab 09/19/19 09/26/19 Rx conjugated estrogens [Premarin] 0.625 mg PO QAM 09/19/19 09/26/19 History fluoxetine [Prozac] 40 mg PO HS 09/19/19 09/26/19 History hydrochlorothiazide 25 mg PO QAM 09/19/19 09/26/19 History ibuprofen 600 mg PO TID 09/19/19 09/26/19 History omeprazole 40 mg PO QAM 09/19/19 09/26/19 History Past Med/Surg History Medical History Acute pyelonephritis Anxiety (Chronic) Chest pain, unspecified (Acute) Chronic fatigue and malaise (Chronic) Depression (Chronic) GERD (gastroesophageal reflux disease) (Chronic) Hypertension (Chronic) Hypertensive urgency Multiple sclerosis (Chronic) Ulcerative colitis (Chronic) Surgical History S/P AGAPITO-BSO (Chronic) Family History Mother Lung disease Other Breast cancer Coronary heart disease Diabetes Heart disease Myocardial infarction Social History Preferred Language: Libyan Communication Ability: Effective Bias Binding Cutter Required: No Beliefs That Will Affect Care: None marital status: Current Living Situation: Spouse Other Information That Helps Us Care for You: No Feels Safe at Home: Yes Safety Concerns: Feels Safe At This Time Smoking Status: Never smoker Do You Dip or Chew Tobacco: No ; Second Hand Exposure: No ; Tobacco Cessation Education Requested by Patient: No Hx Alcohol Use: No Hx Substance Use: No Dental Care, Regularly: Yes Seatbelt Use: always Review of Systems Review of Systems: Constitutional: No fever, sweats or chills + generalized weakness Eyes: No diplopia, no worsening or blurred vision ENT: normal hearing, no trouble swallowing Respiratory: + Cough, no sputum, + dyspnea at rest and on exertion Cardiovascular: No chest pain, tightness or palpitations Abdomen: No pain, + nausea, no vomiting, diarrhea x 1 day last thursday now resolved, no constipation Musculoskeletal: No joint pain, calf pain, swelling Neurologic: No focal weakness, numbness/tingling, or balance problems Psychiatric: No anxiety or depression Skin: No rash or itch Physical Exam Physical Exam: General: awake, alert, no apparent distress, + appears older than stated age Head: Normocephalic, atraumatic ENT: PERRL, EOMI, no pharyngeal exudate, mucous membranes moist Chest: Clear to auscultation, on 3L via NC, no adventitious breath sounds Cardiac: + slightly tachycardic, HR = ~90, Regular rhythm, no murmur, no JVD, normal peripheral pulses, good capillary refill Abdominal: NABS x 4 quadrants, soft, nontender to palpation, no rebound, guarding or tenderness Extremities: Normal inspection, no peripheral edema or erythema, calfs nontender to palpation Psych: Normal mood and affect Neuro: AAO x 3, strength intact bilaterally and related 5/5, no motor deficits, speech is clear, no peripheral sensory deficits Results & Data Vital Signs (Past 12 Hours) Vital Signs Temp Pulse Resp BP Pulse Ox 09/26/19 10:00 86 20 127/74 94 09/26/19 09:30 86 24 127/83 95 09/26/19 08:30 95 H 19 148/75 H 95 09/26/19 08:01 96 H 23 152/87 H 85 L 09/26/19 07:43 98 H 28 H 124/84 92 09/26/19 07:35 37.0 C 99 H 24 115/75 90 Diagnostic Findings CHEST CTA for PULMONARY ARTERIES CT DOSE: 304.70 mGy.cm HISTORY: Hypoxia. Shortness of breath. TECHNIQUE: Multiaxial CT images of the chest were performed following the intravenous administration of contrast to evaluate the pulmonary arteries. Maximal intensity projection images were also obtained. A dose lowering technique was utilized adhering to the principles of ALARA. COMPARISON STUDY: Chest CTA 02/21/2019. FINDINGS: Normal caliber thoracic aorta with no evidence for dissection. No pleural or pericardial effusions. The heart is top normal in size. No filling defects within the pulmonary arteries to suggest pulmonary embolus. Limited views of the upper abdomen demonstrate a normal liver and spleen. The visualized adrenal glands are unremarkable. Normal esophagus. Subcentimeter mediastinal lymph nodes do not meet CT criteria for pathologic involvement. Borderline enlarged bilateral hilar lymph nodes measuring up to 1 cm in short axis diameter. No suspicious lytic or blastic osseous lesions. No pneumothorax. The central airways are patent. Interval development of scattered patchy groundglass and nodular airspace opacities seen within the lungs. These are most pronounced within the upper lobes and a somewhat perihilar distribution. This is nonspecific but favors an atypical pneumonia. Stable 4 mm nodule within the left upper lobe on image 206. This demonstrates greater than 2 year stability and is therefore considered to be benign. IMPRESSION: 1. No evidence for pulmonary embolus. 2. Interval development of scattered patchy groundglass and nodular airspace opacities seen within the lungs. These are most pronounced within the upper lobes and a somewhat perihilar distribution. This is nonspecific but favors an atypical pneumonia. 3. A few prominent bilateral hilar lymph nodes. This may be reactive. XR chest 1V portable HISTORY: 54 years-old Female Shortness of breath acute shortness of breath COMPARISON: Chest radiograph 09/19/2019 TECHNIQUE: Portable AP view the chest FINDINGS: Cardiomediastinal and hilar silhouettes are within normal limits. No pneumothorax, pleural effusion, focal airspace consolidation or overt pulmonary edema. Mild degenerative changes of the spine. Mild convex left curvature of the lower thoracic spine. IMPRESSION: No acute process. Code Status & VTE Plan Code Status Full code Supervising Physician Co-Signing Physician Notes Patient seen and examined, chart reviewed, case discussed with APRIL Hawthorne and I agree with her assessment and plan as documented above. Briefly, patient is a 54-year-old female with history of UC/hypertension/GERD/depression presenting with suspected pneumonia, pericarditis. Patient hypoxic to 85% on room air now improved with supplemental oxygen. On exam patient is afebrile, hemodynamically stable, adequate oxygenation on 2 L nasal cannula. Generalill in appearance Skinwarm, dry, intact, no rashes/lesions HEENTnormocephalic/atraumatic, pupils equal round and reactive to light, extraocular muscles intact, moist mucous membranes, neck supple, no JVD Heart+ S1, S2, regular, no M/R/G, no JVD Lungsequal air entry bilaterally, faint crackles in right upper lobe, no rhonchi/wheezes Abdomen+ bowel sounds, soft, NT/ND Extremitieswarm, well-perfused, no clubbing/cyanosis/edema Labs and images reviewed. Significant for elevated ESR greater than 90, K = 3.3, Hgb = 11.5, HCT = 34.9 CTAno evidence of PE. Scattered, patchy, groundglass and nodular airspace opacities within the lungs. Most pronounced within the upper lobes and somewhat perihilar distribution. Nonspecific but favors atypical pneumonia. A few prominent bilateral hilar lymph nodes which may be reactive Assessment/[id number] female presenting with suspected pneumonia, suspected pericarditis. Patient with similar presentation over the summer. -Treatment with doxycycline and Rocephin Symptomatic care with nebs, Mucinex, Tessalon, incentive spirometry Check Legionella urinary antigen and influenza -Doubtful but consider autoimmune diagnosis such as sarcoidosispatient with atypical pneumonia, hilar lymphadenopathy, arthralgias, possible pericarditis Remainder of plan as above PG Care Time/CCT Total # of Minutes Spent Total Time Spent with Patient: Total time spent is greater than 50% in coordination of care (as documented) at patient's floor/unit and/or counseling patient: (1) Pericarditis Chronicity: acute Pericarditis type: unspecified type Qualified Code(s): I30.9 - Acute pericarditis, unspecified
--- NOTE | 2019-09-26 10:31 | Emergency Department Note ---
ED Visit Note Was seen with Dr. Lopez, see his note for details. Resident Activity Tracking Resident Involvement: Resident Care Provided Care Provided: [facility] Medicine
[2019-09-26 12:11] LABS: Influenza A virus by PCR Neg for Influ A (Neg); Influenza B virus by PCR Neg for Influ B (Neg)
[2019-09-26] MEDS ORDERED: FEXOFENADINE HCL 180 MG TAB PO PRN (12:56)
[2019-09-26] MEDS ORDERED: FLUTICASONE PROPIONATE NA SPR 16 GM BTL PRN (12:56)
[2019-09-26] MEDS ORDERED: POTASSIUM CHLORIDE 20 MEQ TABCR PO STA (12:56)
[2019-09-26] MEDS ORDERED: ALBUTEROL HFA 8 GM INHALER INH PRN (12:56)
[2019-09-26] MEDS: SODIUM CHLORIDE 0.9% 1000ML 1,000 ML IV SCH ×2 (13:34→20:35)
[2019-09-26] MEDS: ONDANSETRON INJ 2 MG/ML 2 ML VIAL IV PRN (13:34)
[2019-09-26] MEDS: IBUPROFEN 600 MG TAB PO SCH ×2 (13:43→20:29)
[2019-09-26] MEDS: BENZONATATE 100 MG CAPSULE PO SCH ×2 (13:43→20:27)
--- NOTE | 2019-09-26 14:50 | Emergency Department Note ---
Entered by Jose Salgado acting as a scribe for ED Provider Note CHIEF COMPLAINT: Shortness of breath HISTORY OF PRESENT ILLNESS: The patient is a 54 year old female who presents to the Emergency Room with complaints of worsening shortness of breath that started last week. The patient also has left sided chest pain which she rates an 8/10 and notes it radiates to her back. The patient states the pain is worse with deep breaths and is induced when she is up walking around. The patient was seen on 09/19 for similar symptoms and was diagnosed with a small pericardial effusion for which she was given Motrin and Colchicine. The patient reports that she has been taking about 4 Motrin daily for pain. She also has been taking the Colchicine, but notes for 3 days last week she only took half doses of the Colchicine. The patient has had some chills but denies any cough. Pt denies LOC, headache, fevers, diaphoresis, visual changes, neck pain,, nausea, vomiting, abdominal pain, back pain, melena, hematochezia, urinary symptoms, numbness, weakness, lymphadenopathy, rash, or other complaints. REVIEW OF SYSTEMS: See HPI for pertinent positives and negatives. A total of ten systems were reviewed and were otherwise negative. PMHx/PSHx: Pericarditis, Breast cancer, GERD, Pyelonephritis, HTN, Depression, Anxiety SOCIAL HISTORY: Patient lives at home. PHYSICAL EXAM: GENERAL: Awake, alert, uncomfortable-appearing, in no distress HENT: Normocephalic, atraumatic. Oropharynx unremarkable. EYES: Normal conjunctiva. Sclera non-icteric. NECK: Inspection normal. Non-tender. Supple. No nuchal rigidity. FROM. No masses. RESPIRATORY: Clear to auscultation. No wheezes. No rales. Increased work of breathing. CARDIAC: Normal rate. Normal rhythm. No murmurs. No rubs. Extremities warm and well perfused. Pulses equal. No JVD. GI: Soft, non-distended. No tenderness to palpation. No rebound or guarding. No masses. RECTAL: Deferred. MUSCULOSKELETAL: Atraumatic. Chest examination reveals no tenderness. The back is symmetrical on inspection without obvious abnormality. There is no CVA tend erness to palpation. No joint edema. LOWER EXTREMITIES: Calves are equal size bilaterally and non-tender. No edema. No discoloration. NEURO: Normal sensorium. No sensory or motor deficits noted. SKIN: No rash or jaundice noted. EMERGENCY DEPARTMENT COURSE: 0740: Past medical records reviewed. The patient was evaluated in room B09 by the resident Dr. Reid, and a complete history and physical examination were performed. I then performed my own assessment of the patient. EMR reviewed showed that the patient was seen in the ED on 09/19 for chest pain. She was previously treated for URI symptoms with Zithromax before that visit. The patient had a cardiology consult and stress echo done. She also had a negative D-dimer so cardiology thought her symptoms were due to pericarditis. 0945: I discussed the patient's case with Ryanne Hawthorne - [facility] who is working under Dr. Renato Rodriguez [facility] Hospitalist. They are going to accept the patient for further evaluation. 0951: I reevaluated the patient and she is resting comfortably. I updated her on results and discussed the treatment plan which she was agreeable with. MEDICAL DECISION MAKING: Prior records/ancillary studies reviewed. Triage Nursing notes reviewed and agree them. Additional history obtained from the family. The patient's history was concerning for shortness of breath. Differential diagnosis: Etiologies such as pneumonia, COPD, reactive airway disease, CHF, cardiac ischemia, pulmonary embolism, pneumothorax, musculoskeletal, infections, gastrointestinal, as well as others were entertained. Physical examination: As above. ER treatment provided: Supplemental oxygen IV saline hydration IV doxycycline IV Rocephin On reassessment the patient felt better. Diagnostic interpretation by me: The electrocardiogram was negative for ischemic change. The labs revealed a mild leukocytosis and anemia on CBC. Chemistry panel was unremarkable. Troponin negative. Imaging studies: Chest x-ray negative for acute process. CT PE study was performed. There is no evidence of pulmonary embolism however there were scattered patchy groundglass opacities concerning for atypical pneumonia. The patient is requiring supplemental oxygen and has atypical pneumonia seen on CT not identified on x-ray. Further management in the hospital will be necessary. Consultation: A consultation was placed with the hospitalist. The case was discussed and diagnostics were reviewed. The patient was evaluated in the ER for further treatment. IMPRESSION: Atypical pneumonia Shortness of breath Hypoxia Left sided chest pain PLAN: Being evaluated by hospitalist The scribe's documentation has been prepared under my direction and personally reviewed by me in its entirety. I confirm that the note above accurately reflects all work, treatment, procedures, and medical decision making performed by me. Impression & Plan Atypical pneumonia, Shortness of breath, Hypoxia, Left-sided chest pain Past Med/Surg History Medical History Acute pyelonephritis Anxiety (Chronic) Chest pain, unspecified (Acute) Chronic fatigue and malaise (Chronic) Depression (Chronic) GERD (gastroesophageal reflux disease) (Chronic) Hypertension (Chronic) Hypertensive urgency Multiple sclerosis (Chronic) Ulcerative colitis (Chronic) Surgical History S/P AGAPITO-BSO (Chronic) Family History Mother Lung disease Other Breast cancer Coronary heart disease Diabetes Heart disease Myocardial infarction Social History Preferred Language: Eritrean Communication Ability: Effective Electric Range 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 Required: No Beliefs That Will Affect Care: None marital status: Current Living Situation: Spouse Other Information That Helps Us Care for You: No Feels Safe at Home: Yes Safety Concerns: Feels Safe At This Time Smoking Status: Never smoker Do You Dip or Chew Tobacco: No ; Second Hand Exposure: No ; Tobacco Cessation Education Requested by Patient: No Hx Alcohol Use: No Hx Substance Use: No Dental Care, Regularly: Yes Seatbelt Use: always Results & Data Vital Signs Vital Signs - 24 hr 09/26/19 07:35 09/26/19 07:43 09/26/19 08:01 Temperature 37.0 C Temperature Source Oral Pulse Rate 99 H 98 H 96 H Pulse Rate from SpO2 Sensor 97 H 95 H Pulse Rhythm Regular Pulse Strength Normal Respiratory Rate 24 28 H 23 Respiratory Effort / Characteristics Non-Labored Spontaneous Respiratory Depth Normal Respiratory Pattern Regular Blood Pressure 115/75 124/84 152/87 H Blood Pressure Mean 88 94 104 Blood Pressure Position Sitting Pulse Oximetry 90 92 85 L Oxygen Delivery Method Room Air Oxygen Flow Rate Sepsis Recent Fever Within 48 Hours No Sepsis New/Unexplained Change in Mental Status No Sepsis Action Taken by Nursing No Action Required 09/26/19 08:30 09/26/19 09:30 09/26/19 10:00 Temperature Temperature Source Pulse Rate 95 H 86 86 Pulse Rate from SpO2 Sensor 94 H 87 86 Pulse Rhythm Pulse Strength Respiratory Rate 19 24 20 Respiratory Effort / Characteristics Respiratory Depth Respiratory Pattern Blood Pressure 148/75 H 127/83 127/74 Blood Pressure Mean 97 95 89 Blood Pressure Position Pulse Oximetry 95 95 94 Oxygen Delivery Method Nasal Cannula Nasal Cannula Oxygen Flow Rate 2 2 Sepsis Recent Fever Within 48 Hours Sepsis New/Unexplained Change in Mental Status Sepsis Action Taken by Group Home Medications Current Medication List: was personally reviewed by me Laboratory Data Attestation: I reviewed the patient's lab results. Result diagrams: 09/26/19 08:18 09/26/19 08:18 Lab Results 09/26/19 09/26/19 09/26/19 Range/Units 08:18 08:18 08:18 WBC 11.71 H (4.8-10.8) K/uL RBC 4.30 (4.2-5.4) M/uL Hgb 11.5 L (12.0-16.0) g/dL Hct 34.9 L (37-47) % MCV 81.2 (80-100) fL MCH 26.7 (25-34) pg MCHC 33.0 (32-36) g/dL RDW Std Deviation 44.8 (36.4-46.3) fL RDW Coeff of Bria 15.3 H (11.5-14.5) % Plt Count 335 (130-400) K/uL MPV 8.7 (7.4-10.4) fL Immature Gran % (Auto) 0.2 % Neut % (Auto) 83.5 % Lymph % (Auto) 9.1 % [place] % (Auto) 5.3 % Eos % (Auto) 1.7 % Baso % (Auto) 0.2 % Immature Gran # (Auto) 0.02 (0.00-0.02) K/uL Neut # (Auto) 9.79 H (1.4-6.5) K/uL Lymph # (Auto) 1.06 L (1.2-3.4) K/uL [place] # (Auto) 0.62 H (0.11-0.59) K/uL Eos # (Auto) 0.20 (0-0.5) K/uL Baso # (Auto) 0.02 (0-0.2) K/uL ESR > 90 H (0-21) mm/hr Sodium 136 (136-145) mmol/L Potassium 3.3 L (3.5-5.1) mmol/L Chloride 101 (98-107) mmol/L Carbon Dioxide 30 (21-32) mmol/L Anion Gap 5.0 (3-11) BUN 12 (7-18) mg/dl Creatinine 0.74 (0.6-1.2) mg/dl Est Cr Clr Drug Dosing 89.0 ml/min Est GFR ( Amer) 105.7 Est GFR (Non-Af Amer) 91.2 BUN/Creatinine Ratio 16.3 (10-20) Glucose 115 H (70-99) mg/dl Calcium 8.9 (8.5-10.1) mg/dl Total Bilirubin 0.5 (0.2-1) mg/dl AST 16 (15-37) U/L ALT 20 (12-78) U/L Alkaline Phosphatase 100 (45-117) U/L Troponin I (0-0.045) ng/ml Total Protein 7.4 (6.4-8.2) gm/dl Albumin 2.7 L (3.4-5.0) gm/dl Globulin 4.7 H (2.5-4.0) gm/dl Albumin/Globulin Ratio 0.6 L (0.9-2) Urine Color Urine Appearance (Clear) Urine pH (4.5-7.5) Ur Specific Hope (1.000-1.030) Urine Protein (Negative) Urine Glucose (UA) (Negative) Urine Ketones (Negative) Urine Blood (Negative) Urine Nitrite (Negative) Urine Bilirubin (Negative) Urine Urobilinogen (Negative) Ur Leukocyte Esterase (Negative) Urine WBC (Auto) (0-5) /hpf Urine RBC (Auto) (0-4) /hpf U Hyaline Cast (Auto) (0-5) /lpf U Epithel Cells (Auto) (0-5) /lpf Urine Bacteria (Auto) (Negative) 09/26/19 09/26/19 Range/Units 08:18 08:19 WBC (4.8-10.8) K/uL RBC (4.2-5.4) M/uL Hgb (12.0-16.0) g/dL Hct (37-47) % MCV (80-100) fL MCH (25-34) pg MCHC (32-36) g/dL RDW Std Deviation (36.4-46.3) fL RDW Coeff of Bria (11.5-14.5) % Plt Count (130-400) K/uL MPV (7.4-10.4) fL Immature Gran % (Auto) % Neut % (Auto) % Lymph % (Auto) % [place] % (Auto) % Eos % (Auto) % Baso % (Auto) % Immature Gran # (Auto) (0.00-0.02) K/uL Neut # (Auto) (1.4-6.5) K/uL Lymph # (Auto) (1.2-3.4) K/uL [place] # (Auto) (0.11-0.59) K/uL Eos # (Auto) (0-0.5) K/uL Baso # (Auto) (0-0.2) K/uL ESR (0-21) mm/hr Sodium (136-145) mmol/L Potassium (3.5-5.1) mmol/L Chloride (98-107) mmol/L Carbon Dioxide (21-32) mmol/L Anion Gap (3-11) BUN (7-18) mg/dl Creatinine (0.6-1.2) mg/dl Est Cr Clr Drug Dosing ml/min Est GFR ( Amer) Est GFR (Non-Af Amer) BUN/Creatinine Ratio (10-20) Glucose (70-99) mg/dl Calcium (8.5-10.1) mg/dl Total Bilirubin (0.2-1) mg/dl AST (15-37) U/L ALT (12-78) U/L Alkaline Phosphatase (45-117) U/L Troponin I < 0.015 (0-0.045) ng/ml Total Protein (6.4-8.2) gm/dl Albumin (3.4-5.0) gm/dl Globulin (2.5-4.0) gm/dl Albumin/Globulin Ratio (0.9-2) Urine Color Dark Yellow Urine Appearance Clear (Clear) Urine pH >= 9.0 H (4.5-7.5) Ur Specific Hope > 1.045 H (1.000-1.030) Urine Protein Negative (Negative) Urine Glucose (UA) Negative (Negative) Urine Ketones Trace H (Negative) Urine Blood Negative (Negative) Urine Nitrite Negative (Negative) Urine Bilirubin Negative (Negative) Urine Urobilinogen Negative (Negative) Ur Leukocyte Esterase Negative (Negative) Urine WBC (Auto) 1-5 (0-5) /hpf Urine RBC (Auto) 0-4 (0-4) /hpf U Hyaline Cast (Auto) 5-10 H (0-5) /lpf U Epithel Cells (Auto) >30 H (0-5) /lpf Urine Bacteria (Auto) 2+ H (Negative) Administered Medications Benzonatate (Tessalon Perle) 100 mg PO TID [facility] Stop: 10/26/19 13:59 Last Admin: 09/26/19 13:43 Dose: 100 mg Documented by: [id number] Hydromorphone HCl (Dilaudid) 0.5 mg IV Q15M PRN PRN Reason: Pain Stop: 10/10/19 08:28 Last Admin: 09/26/19 10:12 Dose: 0.5 mg Documented by: [id number] Admin: 09/26/19 08:39 Dose: 0.5 mg Documented by: [id number] Sodium Chloride (Nss 1000ml) 1,000 mls @ 125 mls/hr IV .Q8H [facility] Stop: 09/27/19 12:55 Last Admin: 09/26/19 13:34 Dose: 125 mls/hr Documented by: [id number] Ibuprofen (Motrin) 600 mg PO TID [facility] Stop: 10/26/19 13:59 Last Admin: 09/26/19 13:43 Dose: 600 mg Documented by: [id number] Ioversol (Optiray 320 100ml) 81 ml IV ONCE PRN PRN Reason: Interaction Checking Stop: 09/30/19 09:11 Last Admin: 09/26/19 09:13 Dose: 81 ml Documented by: [id number] Ondansetron HCl (Zofran) 4 mg IV Q4H PRN PRN Reason: Nausea And Vomiting Stop: 10/26/19 12:55 Last Admin: 09/26/19 13:34 Dose: 4 mg Documented by: [id number] Discontinued Medications Ceftriaxone Sodium (Rocephin) 2,000 mg in 70 mls @ 140 mls/hr IV NOW STA Stop: 09/26/19 10:06 Last Infusion: 09/26/19 10:34 Dose: 0 mls/hr Documented by: [id number] Infusion: 09/26/19 10:34 Dose: 0 mls/hr Documented by: [id number] Admin: 09/26/19 10:04 Dose: 140 mls/hr Documented by: [id number] Doxycycline Hyclate 100 mg/ (Dextrose) 110 mls @ 50 mls/hr IV NOW STA Stop: 09/26/19 11:48 Last Infusion: 09/26/19 12:31 Dose: 0 mls/hr Documented by: [id number] Admin: 09/26/19 10:09 Dose: 50 mls/hr Documented by: [id number] Ondansetron HCl (Zofran) 4 mg IV NOW STA Stop: 09/26/19 08:30 Last Admin: 09/26/19 08:39 Dose: 4 mg Documented by: [id number] Potassium Chloride (Klor-Con M20) 40 meq PO NOW STA Stop: 09/26/19 12:57 Last Admin: 09/26/19 13:43 Dose: 40 meq Documented by: [id number] Imaging Data Radiologist's Impression: Radiology results as stated below per my review and the radiologist's interpretation: XR chest 1V portable HISTORY: 54 years-old Female Shortness of breath acute shortness of breath COMPARISON: Chest radiograph 09/19/2019 TECHNIQUE: Portable AP view the chest FINDINGS: Cardiomediastinal and hilar silhouettes are within normal limits. No pneumothorax, pleural effusion, focal airspace consolidation or overt pulmonary edema. Mild degenerative changes of the spine. Mild convex left curvature of the lower thoracic spine. IMPRESSION: No acute process. The above report was generated using voice recognition software. It may contain grammatical, syntax or spelling errors. Electronically signed by: Joshua Diaz M.D. 09/26/2019 8:10 AM CHEST CTA for PULMONARY ARTERIES CT DOSE: 304.70 mGy.cm HISTORY: Hypoxia. Shortness of breath. TECHNIQUE: Multiaxial CT images of the chest were performed following the intravenous administration of contrast to evaluate the pulmonary arteries. Maximal intensity projection images were also obtained. A dose lowering technique was utilized adhering to the principles of ALARA. COMPARISON STUDY: Chest CTA 02/21/2019. FINDINGS: Normal caliber thoracic aorta with no evidence for dissection. No p leural or pericardial effusions. The heart is top normal in size. No filling defects within the pulmonary arteries to suggest pulmonary embolus. Limited views of the upper abdomen demonstrate a normal liver and spleen. The visualized adrenal glands are unremarkable. Normal esophagus. Subcentimeter mediastinal lymph nodes do not meet CT criteria for pathologic involvement. Borderline enlarged bilateral hilar lymph nodes measuring up to 1 cm in short axis diameter. No suspicious lytic or blastic osseous lesions. No pneumothorax. The central airways are patent. Interval development of scattered patchy groundglass and nodular airspace opacities seen within the lungs. These are most pronounced within the upper lobes and a somewhat perihilar distribution. This is nonspecific but favors an atypical pneumonia. Stable 4 mm nodule within the left upper lobe on image 206. This demonstrates greater than 2 year stability and is therefore considered to be benign. IMPRESSION: 1. No evidence for pulmonary embolus. 2. Interval development of scattered patchy groundglass and nodular airspace opacities seen within the lungs. These are most pronounced within the upper lobes and a somewhat perihilar distribution. This is nonspecific but favors an atypical pneumonia. 3. A few prominent bilateral hilar lymph nodes. This may be reactive. Electronically signed by: Nadeem Pettit M.D. 09/26/2019 9:34 AM ECG Data Attestation: I personally reviewed and interpreted this ECG as follows: Indication: + SOB/dyspnea Rate (beats per minute): 95 Rhythm: normal sinus ECG Intervals/blocks: + Normal QRS ECG [place]: + Normal ECG ST segments: no ST depression and no ST elevation ECG Findings: + Other (Non-specific ST changes ); no PACs and no PVCs Blood Pressure Blood Pressure Findings: Elevated blood pressure Blood Pressure Disposition: further management by hospitalist Discharge Plan Visit Data *Final* Discharge Date/Time: 09/26/19 12:08 Chief Complaint: Respiratory Problems Stated Complaint: RESPIRATORY PROBLEMS ED Provider: Nikolas Lopez ED Midlevel Provider: Tim Reid Discharge Problem: Atypical pneumonia, Shortness of breath, Hypoxia, Left-sided chest pain Patient Disposition: Admitted As Inpatient Discharge Instructions Interventions: ED Discharge Assessment Last Done: 09/26/19 12:08 The scribe's documentation has been prepared under my direction and personally reviewed by me in its entirety. I confirm that the note above accurately reflects all work, treatment, procedures, and medical decision making performed by me.
[2019-09-26] MEDS: ALBUT/IPRATROP 3MG/0.5MG NEB 3 ML VIAL NEB SCH ×4 (15:25→23:19)
[2019-09-26] MEDS: carvediloL 6.25 MG TAB PO SCH (20:26)
[2019-09-26] MEDS: FLUTICASONE HFA 110MCG INHALER INH SCH (20:26)
[2019-09-26] MEDS: guaiFENesin 600 MG TABCR PO SCH (20:27)
[2019-09-26] MEDS: COLCHICINE 0.6 MG TAB PO SCH (20:27)
[2019-09-26] MEDS: FLUOXETINE HCL 20 MG CAP PO SCH (20:28)
[2019-09-26] MEDS: LORazepam 1 MG TAB PO PRN (21:13)
[2019-09-27] MEDS: ALBUT/IPRATROP 3MG/0.5MG NEB 3 ML VIAL NEB SCH ×6 (03:46→23:39)
[2019-09-27] MEDS: SODIUM CHLORIDE 0.9% 1000ML 1,000 ML IV SCH (04:45)
[2019-09-27 05:45] LABS: Hematocrit (blood only) 31.7 % (37-47); Mean Corpuscular Hemoglobin 26.7 pg (25-34); Mean Corpuscular Hgb Conc 31.5 g/dL (32-36); Mean Corpuscular Volume 84.8 fL (80-100); Mean Platelet Volume 8.4 fL (7.4-10.4); Platelet Count 303 K/uL (130-400); RDW Coefficient of Variation 15.7 % (11.5-14.5); RDW Standard Deviation 48.3 fL (36.4-46.3); Red Blood Count 3.74 M/uL (4.2-5.4); White Blood Count 8.18 K/uL (4.8-10.8)
[2019-09-27 06:21] LABS: Albumin Level 2.4 gm/dl (3.4-5.0); BUN Creatinine Ratio 13.7 (10-20); Calcium 7.7 mg/dl (8.5-10.1); Creatinine Clr Calc Pharmacy 85.5 ml/min; Est GFR (African American) 100.7; Est GFR (Non-African American) 86.9; Potassium 3.5 mmol/L (3.5-5.1)
[2019-09-27 06:41] LABS: Albumin Globulin Ratio 0.6 (0.9-2); Bilirubin,Total 0.3 mg/dl (0.2-1); Globulin 4.3 gm/dl (2.5-4.0); Total Protein 6.7 gm/dl (6.4-8.2)
[2019-09-27] MEDS: IBUPROFEN 600 MG TAB PO SCH ×3 (08:18→20:28)
[2019-09-27] MEDS: PANTOprazole 40 MG TAB PO SCH (08:19)
[2019-09-27] MEDS: carvediloL 6.25 MG TAB PO SCH ×2 (08:19→20:27)
[2019-09-27] MEDS: AMLODIPINE BESYLATE 5 MG TAB PO SCH (08:19)
[2019-09-27] MEDS: hydroCHLOROthiazide 25 MG TAB PO SCH (08:20)
[2019-09-27] MEDS: guaiFENesin 600 MG TABCR PO SCH ×2 (08:20→20:27)
[2019-09-27] MEDS: IRBESARTAN 75 MG TAB PO SCH (08:20)
[2019-09-27] MEDS: ESTROGENS, CONJUGATED 0.625 MG TAB PO SCH (08:20)
[2019-09-27] MEDS: BENZONATATE 100 MG CAPSULE PO SCH ×3 (08:21→20:28)
[2019-09-27] MEDS: COLCHICINE 0.6 MG TAB PO SCH ×2 (08:21→20:30)
[2019-09-27] MEDS: FLUTICASONE HFA 110MCG INHALER INH SCH ×2 (08:21→20:30)
[2019-09-27] MEDS: ONDANSETRON INJ 2 MG/ML 2 ML VIAL IV PRN ×3 (08:52→23:12)
[2019-09-27] MEDS ORDERED: [UNRECOGNIZED DRUG - OTHER] PO SCH (09:00)
[2019-09-27] MEDS: cefTRIAXone SODIUM 2,000 MG in DEXTROSE 5% 50 ML IV SCH (09:15)
[2019-09-27] MEDS: DOXYCYCLINE HYCLATE 100 MG CAP PO SCH ×2 (09:50→20:30)
[2019-09-27] MEDS: ACETAMINOPHEN 325 MG TAB PO PRN ×2 (10:24→19:31)
[2019-09-27 10:46] LABS: Lyme Ab IgG w/WB Rflx Negative (Negative); Lyme Ab IgM w/WB Rflx Negative (Negative)
[2019-09-27] MEDS ORDERED: PROMETHAZINE HCL 25 MG TAB PO ONE (11:29)
[2019-09-27] MEDS ORDERED: KETOROLAC 30 MG/ML VIAL IV ONE (11:29)
--- NOTE | 2019-09-27 16:04 | Pulmonary Consultation ---
Date of Consultation September 27, 2019 Assessment & Plan (1) Shortness of breath: Impression: 54-year-old female with abnormal CT scan and shortness of breath. The CT scan is suggestive of an infectious or inflammatory etiology. Doubt bacterial etiology given the fact that she has had 2 courses of antibiotics. Viral would be in the differential. Atypical pulmonary edema, or pulmonary inflammation would also be on the differential. Cannot exclude potential viral etiology. Recommendations: 1. Abnormal CT scan: The patient had a serological evaluation conducted with her initial diagnosis of pericardial disease which was negative. We will resend MAC, ANCA and check ESR, CRP, CPK, and IgE levels. CAM level was ordered however I doubt this will be beneficial as the utility of this in isolation is not particularly helpful in the patient's CT pattern is not consistent with a diagnosis of sarcoid. 2. We did discuss possible need for bronchoscopy however would await serological evaluation. If steroids are warranted for her pericardial disease, could consider Solu-Medrol with clinical follow-up. 3. Continue oxygen titrated to keep saturations at or above 88%. 4. We will follow-up with laboratory studies and clinical response. I do not think antibiotics are required currently but will defer to the patient's primary service. (2) Hypoxia: (3) Abnormal CT scan of lung: History of Present Illness Attending Physician: Marina Huang MD History of Present Illness Asked by hospitalist to evaluate this patient with the shortness of breath and an abnormal CT scan. History is obtained from review the electronic medical record as well as interview the patient at bedside. Patient is a 54-year-old female with a history of ulcerative colitis who is not on any therapy. She states that she developed pericardial effusion several months ago and was treated with colchicine. She did not have much shortness of breath at that time but mainly complained of some chest tightness and pressure. She has had stress test performed which were unrevealing. She did well up until about 2 weeks ago when she developed progressive shortness of breath as well as a dry cough. She was seen by her primary care provider and given a prescription for a azithromycin and prednisone which she took but were ineffectual. She followed up with her PCM and was given a repeat course of antibiotics and steroids which again did not improve. Her shortness of breath progressed to the point that she was unable to walk from the bedroom to the bathroom without bec oming significantly winded which prompted her to be seen in the emergency room and admitted. The patient does report a family history of nontuberculous mycobacterial infection as well as lung cancer. She is a lifelong non-smoker and does not vapor use E cigarettes. She is never had hemoptysis. She does complain of diffuse myalgias. No overt arthralgias. No skin rashes or lesions. She does n ot report fevers chills or night sweats. She has been losing weight but is unable to substantiate exactly how much weight she is lost. She does feel significantly fatigued. Allergies Allergy/AdvReac Type Severity Reaction Status Date / Time nitrofurantoin Allergy Intermediate NAUSEA, Verified 09/26/19 09:20 INCREASED HEART RATE pollen extracts Allergy Intermediate ITCHY Verified 09/26/19 09:20 EYES, SNEEZING, CONGESTION Sulfa (Sulfonamide AdvReac Severe SEVERE Verified 09/26/19 09:20 Antibiotics) VOMITIN AND NAUSEA levofloxacin AdvReac Intermediate NAUSEA, Verified 09/26/19 09:20 INCREASED HEART RATE Home Medications Home Medications Medication Instructions Recorded Confirmed Type fexofenadine [Seble Allergy] 180 mg PO QAM PRN 02/11/19 09/26/19 History fluticasone propionate [Flonase 1 spray INTRANASAL DAILY PRN 02/11/19 09/26/19 History Allergy Relief] fluticasone propionate [Flovent 2 puff INHALATION BID 02/11/19 09/26/19 History HFA] [id number] 250 250 mg PO QAM tab 04/25/19 09/26/19 History sa-[id number] HCl-herb 124 12.5 mg chewable tablet carvedilol 6.25 mg tablet 6.25 mg PO BID 08/02/19 09/26/19 History irbesartan 75 mg tablet 75 mg PO QAM 08/02/19 09/26/19 History lorazepam 1 mg tablet See Rx Instructions .ROUTE 08/30/19 09/26/19 Rx .COMPLEX #40 tablet albuterol sulfate 90 mcg/actuation 1 puffs INH QID PRN #8 gm 09/06/19 09/26/19 Rx aerosol inhaler amlodipine 2.5 mg PO QAM 09/19/19 09/26/19 History colchicine 0.6 mg PO BID #60 tab 09/19/19 09/26/19 Rx conjugated estrogens [Premarin] 0.625 mg PO QAM 09/19/19 09/26/19 History fluoxetine [Prozac] 40 mg PO HS 09/19/19 09/26/19 History hydrochlorothiazide 25 mg PO QAM 09/19/19 09/26/19 History ibuprofen 600 mg PO TID 09/19/19 09/26/19 History omeprazole 40 mg PO QAM 09/19/19 09/26/19 History Patient History Medical History Acute pyelonephritis Anxiety (Chronic) Chest pain, unspecified (Acute) Chronic fatigue and malaise (Chronic) Depression (Chronic) GERD (gastroesophageal reflux disease) (Chronic) Hypertension (Chronic) Hypertensive urgency Multiple sclerosis (Chronic) Ulcerative colitis (Chronic) Surgical History S/P AGAPITO-BSO (Chronic) Family History Mother Lung disease Other Breast cancer Coronary heart disease Diabetes Heart disease Myocardial infarction Social History Preferred Language: Burundian Communication Ability: Effective Die Setter Required: No Beliefs That Will Affect Care: None marital status: Current Living Situation: Spouse Other Information That Helps Us Care for You: No Feels Safe at Home: Yes Safety Concerns: Feels Safe At This Time Smoking Status: Never smoker Do You Dip or Chew Tobacco: No ; Second Hand Exposure: No ; Tobacco Cessation Education Requested by Patient: No Hx Alcohol Use: No Hx Substance Use: No Dental Care, Regularly: Yes Seatbelt Use: always Review of Systems Review of Systems: Complete 12 point review of systems completed with the patient. Please refer to the admission H&P. I have no additions or deletions Results & Data Vital Signs (Past 12 Hours) Vital Signs Temp Pulse Resp BP Pulse Ox Pulse Ox 09/27/19 15:47 36.9 C 75 16 140/83 93 09/27/19 15:43 76 18 94 09/27/19 11:27 92 H 18 93 09/27/19 08:02 99 09/27/19 07:12 36.9 C 81 16 140/83 99 09/27/19 07:06 99 09/27/19 07:01 72 22 85 L Laboratory Results 09/27/19 05:01 09/27/19 05:[address] of the chest was reviewed. There are faint diffuse patchy airspace opacities which appear groundglass in nature. No pleural effusion. No suspicious mediastinal or hilar adenopathy PG Care Time/CCT Total # of Minutes Spent Total Time Spent with Patient: Total time spent is greater than 50% in coordination of care (as documented) at patient's floor/unit and/or counseling patient:
--- NOTE | 2019-09-27 17:08 | Hospitalist Progress Note ---
Date of Service September 27, 2019 Assessment & Plan (1) Atypical pneumonia: - Initially diagnosed with acute bronchitis in Aug 2019, has not had any improvement following 2 rounds of both Z-skye & steroids. - CT chest showed scattered groundglass and nodular airspace opacities and bilateral hilar lymph nodes. - Influenza was negative; Legionella is pending. - Continue Rocephin and Doxycycline for empiric coverage. - Duoneb q4hr ATC, Mucinex BID, Tessalon perles TID scheduled. IS and Flutter valve. - Consulting pulm service, appreciate input. (2) Hypoxia: - Has been requiring 2L via NC with significant SOB on exertion. - No improvement following steroid and Azithromycin course; PNA treatment as noted above. - Atypical findings noted on chest CT. - CAM level pending to rule out sarcoidosis. - Pulm consulted for further evaluation. (3) Pericarditis: - Diagnosed with pericarditis on 09/19/19; started Colchicine and scheduled Motrin - continue meds. - Stress test completed in Aug due to chest pain, was negative for cardiac ischemia. - Has ongoing chest pain, no improvement over last week. - Lyme titer pending; consider further viral studies to evaluate etiology of pericarditis. (4) Pericardial effusion: - Small pericardial effusion noted on previous echo in Aug 2019. - Will order limited 2D echo to evaluate for resolution - was likely related to pericarditis. (5) Acute bronchitis: - See work up/history above. (6) Hypertension: - Continue Irbesartan 75 mg daily, HCTZ 25 mg daily, Coreg 6.25 mg BID, Amlodipine 2.5 mg daily. - BP has been well controlled. (7) GERD (gastroesophageal reflux disease): - PPI daily. (8) Depression: - Continue SSRI as prescribed. (9) Anxiety: - Continue SSRI. - Holding home benzo. (10) Anemia: - Monitor CBC daily - will order iron studies in the AM. (11) Headache: - Received migraine cocktail today with improvement. - Tylenol prn; also receiving scheduled Ibuprofen. (12) Hypokalemia: - Monitor and replace daily. (13) Ulcerative colitis: No ongoing symptoms or treatment (14) DVT prophylaxis: - SCDs; Lovenox. Dispo: Med/surg; discharge pending improvement in resp issues. Supervising Physician Co-Signing Physician Notes PA Supervision Note: I did not personally see or examine the patient today, but I verified all robins points of APRIL Reyna's assessment and plan with the following exceptions/additions: None Subjective Pt. has significant SOB with exertion, has been requiring 2L via NC. She has a dry cough. Also c/o left sided chest pain. She has not noticed any improvement in chest pain after starting Colchicine and Motrin therapy following ER visit. Review of Systems Review of Systems: All systems reviewed & are unremarkable except as noted in HPI & below Constitutional: + fatigue, + weakness and + anorexia; no fever and no chills Respiratory: + cough, + dyspnea and + dyspnea on exertion; no sputum production and no wheezing Cardiovascular: + chest pain; no radiating jaw, neck or arm pain, no palpitations and no edema Gastrointestinal: no abdominal pain, no nausea and no constipation Genitourinary: no difficulty urinating Musculoskeletal: no back pain and no joint pain Integumentary: no non-healing lesions Physical Exam Physical Exam: General: Resting comfortably HEENT: NC/AT; PERRLA with EOMI; [place] conjunctiva, MMM. No erythema of posterior pharynx Neck: Supple and nontender Cardiac: RRR Lungs: 2L via NC; CTA bilaterally Abdomen: Bowel normoactive X 4; Nontender to palpation Extremities: Warm. No edema present Neuro: No focal weakness Skin: No rash Results & Data Vital Signs (Past 12 Hours) Vital Signs Temp Pulse Resp BP Pulse Ox Pulse Ox 09/27/19 15:47 36.9 C 75 16 140/83 93 09/27/19 15:43 76 18 94 09/27/19 11:27 92 H 18 93 09/27/19 08:02 99 09/27/19 07:12 36.9 C 81 16 140/83 99 09/27/19 07:06 99 09/27/19 07:01 72 22 85 L Laboratory Results 09/27/19 09/27/19 09/27/19 Range/Units 16:25 16:25 16:25 WBC (4.8-10.8) K/uL RBC (4.2-5.4) M/uL Hgb (12.0-16.0) g/dL Hct (37-47) % MCV (80-100) fL MCH (25-34) pg MCHC (32-36) g/dL RDW Std Deviation (36.4-46.3) fL RDW Coeff of Bria (11.5-14.5) % Plt Count (130-400) K/uL MPV (7.4-10.4) fL ESR Pending Sodium (136-145) mmol/L Potassium (3.5-5.1) mmol/L Chloride (98-107) mmol/L Carbon Dioxide (21-32) mmol/L Anion Gap (3-11) BUN (7-18) mg/dl Creatinine (0.6-1.2) mg/dl Est Cr Clr Drug Dosing ml/min Est GFR ( Amer) Est GFR (Non-Af Amer) BUN/Creatinine Ratio (10-20) Glucose (70-99) mg/dl Calcium (8.5-10.1) mg/dl Total Bilirubin (0.2-1) mg/dl AST (15-37) U/L ALT (12-78) U/L Alkaline Phosphatase (45-117) U/L Total Creatine Kinase Pending C-Reactive Protein Pending NT-Pro-B Natriuret Pep Pending (0-900) pg/ml Total Protein (6.4-8.2) gm/dl Albumin (3.4-5.0) gm/dl Globulin (2.5-4.0) gm/dl Albumin/Globulin Ratio (0.9-2) Angiotensin Convert Enz Procalcitonin IgE Pending MAC Screen Pending Anti-Proteinase 3 Pending Anti-Myeloperoxidase Pending ANCA Pending Lyme Disease IgG Ab (Negative) Lyme Disease IgM Ab (Negative) 09/27/19 09/27/19 09/27/19 Range/Units 16:25 05:37 05:01 WBC (4.8-10.8) K/uL RBC (4.2-5.4) M/uL Hgb (12.0-16.0) g/dL Hct (37-47) % MCV (80-100) fL MCH (25-34) pg MCHC (32-36) g/dL RDW Std Deviation (36.4-46.3) fL RDW Coeff of Bria (11.5-14.5) % Plt Count (130-400) K/uL MPV (7.4-10.4) fL ESR Sodium 138 (136-145) mmol/L Potassium 3.5 (3.5-5.1) mmol/L Chloride 106 (98-107) mmol/L Carbon Dioxide 26 (21-32) mmol/L Anion Gap 6.0 (3-11) BUN 10 (7-18) mg/dl Creatinine 0.77 (0.6-1.2) mg/dl Est Cr Clr Drug Dosing 85.5 ml/min Est GFR ( Amer) 100.7 Est GFR (Non-Af Amer) 86.9 BUN/Creatinine Ratio 13.7 (10-20) Glucose 97 (70-99) mg/dl Calcium 7.7 L (8.5-10.1) mg/dl Total Bilirubin 0.3 (0.2-1) mg/dl AST 12 L (15-37) U/L ALT 16 (12-78) U/L Alkaline Phosphatase 93 (45-117) U/L Total Creatine Kinase C-Reactive Protein NT-Pro-B Natriuret Pep 463 (0-900) pg/ml Total Protein 6.7 (6.4-8.2) gm/dl Albumin 2.4 L (3.4-5.0) gm/dl Globulin 4.3 H (2.5-4.0) gm/dl Albumin/Globulin Ratio 0.6 L (0.9-2) Angiotensin Convert Enz Procalcitonin Pending IgE MAC Screen Anti-Proteinase 3 Anti-Myeloperoxidase ANCA Lyme Disease IgG Ab (Negative) Lyme Disease IgM Ab (Negative) 09/27/19 09/26/19 09/26/19 Range/Units 05:01 08:19 08:19 WBC 8.18 (4.8-10.8) K/uL RBC 3.74 L (4.2-5.4) M/uL Hgb 10.0 L (12.0-16.0) g/dL Hct 31.7 L (37-47) % MCV 84.8 (80-100) fL MCH 26.7 (25-34) pg MCHC 31.5 L (32-36) g/dL RDW Std Deviation 48.3 H (36.4-46.3) fL RDW Coeff of Bria 15.7 H (11.5-14.5) % Plt Count 303 (130-400) K/uL MPV 8.4 (7.4-10.4) fL ESR Sodium (136-145) mmol/L Potassium (3.5-5.1) mmol/L Chloride (98-107) mmol/L Carbon Dioxide (21-32) mmol/L Anion Gap (3-11) BUN (7-18) mg/dl Creatinine (0.6-1.2) mg/dl Est Cr Clr Drug Dosing ml/min Est GFR ( Amer) Est GFR (Non-Af Amer) BUN/Creatinine Ratio (10-20) Glucose (70-99) mg/dl Calcium (8.5-10.1) mg/dl Total Bilirubin (0.2-1) mg/dl AST (15-37) U/L ALT (12-78) U/L Alkaline Phosphatase (45-117) U/L Total Creatine Kinase C-Reactive Protein NT-Pro-B Natriuret Pep (0-900) pg/ml Total Protein (6.4-8.2) gm/dl Albumin (3.4-5.0) gm/dl Globulin (2.5-4.0) gm/dl Albumin/Globulin Ratio (0.9-2) Angiotensin Convert Enz Pending Procalcitonin IgE MAC Screen Anti-Proteinase 3 Anti-Myeloperoxidase ANCA Lyme Disease IgG Ab Negative (Negative) Lyme Disease IgM Ab Negative (Negative) PG Care Time/CCT Total # of Minutes Spent Total Time Spent with Patient: Total time spent is greater than 50% in coordination of care (as documented) at patient's floor/unit and/or counseling patient: (1) Pericarditis Chronicity: acute Pericarditis type: unspecified type Qualified Code(s): I30.9 - Acute pericarditis, unspecified
[2019-09-27] MEDS: ENOXAPARIN INJ 40 MG/0.4 ML SYR SQ SCH (18:00)
[2019-09-27] MEDS: LORazepam 1 MG TAB PO PRN (20:26)
[2019-09-27] MEDS: FLUOXETINE HCL 20 MG CAP PO SCH (20:29)
[2019-09-28] MEDS: ALBUT/IPRATROP 3MG/0.5MG NEB 3 ML VIAL NEB SCH ×6 (03:10→23:20)
[2019-09-28] MEDS: IBUPROFEN 600 MG TAB PO SCH ×2 (07:30→17:20)
[2019-09-28] MEDS: PANTOprazole 40 MG TAB PO SCH (07:31)
[2019-09-28] MEDS: AMLODIPINE BESYLATE 5 MG TAB PO SCH (07:31)
[2019-09-28] MEDS: BENZONATATE 100 MG CAPSULE PO SCH ×3 (07:32→20:22)
[2019-09-28] MEDS: DOXYCYCLINE HYCLATE 100 MG CAP PO SCH (07:32)
[2019-09-28] MEDS: IRBESARTAN 75 MG TAB PO SCH (07:32)
[2019-09-28] MEDS: carvediloL 6.25 MG TAB PO SCH ×2 (07:32→21:18)
[2019-09-28] MEDS: ESTROGENS, CONJUGATED 0.625 MG TAB PO SCH (07:33)
[2019-09-28] MEDS: hydroCHLOROthiazide 25 MG TAB PO SCH (07:33)
[2019-09-28] MEDS: COLCHICINE 0.6 MG TAB PO SCH ×2 (07:33→20:22)
[2019-09-28] MEDS: guaiFENesin 600 MG TABCR PO SCH ×2 (07:33→20:22)
[2019-09-28] MEDS: FLUTICASONE HFA 110MCG INHALER INH SCH ×2 (07:34→20:23)
[2019-09-28] MEDS: ENOXAPARIN INJ 40 MG/0.4 ML SYR SQ SCH (07:34)
[2019-09-28] MEDS: cefTRIAXone SODIUM 2,000 MG in DEXTROSE 5% 50 ML IV SCH (07:40)
[2019-09-28] MEDS: ONDANSETRON INJ 2 MG/ML 2 ML VIAL IV PRN ×2 (07:40→17:20)
[2019-09-28 08:17] LABS: Hematocrit (blood only) 32.7 % (37-47); Hemoglobin 10.6 g/dL (12.0-16.0); Mean Corpuscular Hemoglobin 26.8 pg (25-34); Mean Corpuscular Hgb Conc 32.4 g/dL (32-36); Mean Corpuscular Volume 82.6 fL (80-100); Mean Platelet Volume 8.6 fL (7.4-10.4); Platelet Count 288 K/uL (130-400); RDW Coefficient of Variation 15.5 % (11.5-14.5); RDW Standard Deviation 46.2 fL (36.4-46.3); Red Blood Count 3.96 M/uL (4.2-5.4); White Blood Count 8.21 K/uL (4.8-10.8)
[2019-09-28 08:54] LABS: Albumin Level 2.5 gm/dl (3.4-5.0); BUN Creatinine Ratio 13.6 (10-20); Calcium 8.3 mg/dl (8.5-10.1); Creatinine Clr Calc Pharmacy 92.7 ml/min; Est GFR (African American) 111.1; Est GFR (Non-African American) 95.9
[2019-09-28 09:01] LABS: Albumin Globulin Ratio 0.6 (0.9-2); Bilirubin,Total 0.3 mg/dl (0.2-1); Ferritin 58.7 ng/ml (8-388); Globulin 4.5 gm/dl (2.5-4.0)
--- NOTE | 2019-09-28 09:29 | Pulmonology Progress Note ---
Date of Service September 28, 2019 Assessment & Plan (1) Shortness of breath: Impression: 54-year-old female with abnormal CT scan and shortness of breath. The CT scan is suggestive of an infectious or inflammatory etiology. Doubt bacterial etiology given the fact that she has had 2 courses of antibiotics and she has a negative pro calcitonin. Pulmonary manifestations of inflammatory bowel disease are possible. Viral would be in the differential. Atypical pulmonary edema, or pulmonary hemorrhage would also be on the differential. Echocardiogram showed no evidence of pericardial effusion. Recommendations: 1. Abnormal CT scan: Serologies pending. She did have acute EBV infection 5 months ago although pattern is not entirely consistent with EBV infection. Given diagnostic uncertainty, will proceed with fiberoptic bronchoscopy with bronchioloalveolar lavage today. This is tentatively been scheduled for 2:00. N.p.o. now. Would consider parenteral steroids once a BAL sample has been obtained. 2. Management of patient's other medical issues per primary service. 3. Continue oxygen titrated to keep saturations at or above 88%. 4. No antibiotics necessary from a pulmonary perspective (2) Hypoxia: (3) Abnormal CT scan of lung: Subjective Patient complained of increasing shortness of breath and headache this morning with some nausea. She is coughing but not expectorating phlegm. No hemoptysis. The chest pressure noted previously has essentially resolved. She continues to complain of diffuse myalgias. Review of Systems Review of Systems: Negative except as noted above Results & Data Vital Signs (Past 12 Hours) Vital Signs Temp Pulse Resp BP Pulse Ox 09/28/19 07:32 37.0 C 86 16 143/86 H 95 09/28/19 07:07 84 18 93 09/28/19 03:10 81 16 94 09/27/19 22:51 36.8 C 83 16 131/72 92 Laboratory Results 09/28/19 07:42 09/28/19 07:42 Serological data currently pending. BNP 800 ESR 64 decreased CRP 13 Procalcitonin undetectable Ferritin 53, iron panel consistent with iron deficiency PG Care Time/CCT Total # of Minutes Spent Total Time Spent with Patient: Total time spent is greater than 50% in coordination of care (as documented) at patient's floor/unit and/or counseling patient:
[2019-09-28] MEDS ORDERED: SODIUM CHLORIDE 0.9% 500 ML IV SCH (09:30)
[2019-09-28] MEDS ORDERED: POTASSIUM CHLORIDE 20 MEQ TABCR PO ONE ×2 (09:30→12:00)
[2019-09-28] MEDS: HYDROmorphone INJ 0.5 MG/0.5 ML SYR IV PRN (10:50)
[2019-09-28] MEDS ORDERED: PROCHLORPERAZINE 10 MG in SYRINGE 8 ML IV PRN (11:43)
[2019-09-28] MEDS ORDERED: SODIUM CHLORIDE 0.65% NA SOLN 45 ML (OCEAN) ONE (12:53)
--- NOTE | 2019-09-28 13:45 | Pre Anesthesia Assessment ---
Date of Service September 28, 2019 Pre Sedation Assessment Vital Signs Temp Pulse Pulse Resp BP Pulse Ox 09/28/19 10:52 82 18 91 09/28/19 07:32 37.0 C 86 16 143/86 H 95 09/28/19 07:07 84 18 93 09/28/19 03:10 81 16 94 09/27/19 22:51 36.8 C 83 16 131/72 92 09/27/19 20:22 82 163/80 H 09/27/19 20:03 80 20 96 09/27/19 15:47 36.9 C 75 16 140/83 93 09/27/19 15:43 76 18 94 Cardiovascular RRR, no murmur, no edema Respiratory + respiratory effort normal Pre-Sedation Airway Assessment Smoking Status: Never smoker Hx Sleep Apnea: No Short, Thick Neck: No Thyromental Distance: > or= 3.5 Finger Breadths Oral Cavity: + WNL Mallampati Class: II ASA: ASA2 NPO Status Date of Last Intake of Fluids: 09/28/19 Time of Last Intake of Fluids: 08:00 Date of Last Intake of Solid Food: 09/28/19 Time of Last Intake of Solid Foods: 08:00 Notes The planned sedation has been discussed with the patient. Informed Consent was obtained. I have identified the patient, determined the appropriateness of sedation and have assessed the patient immediately prior to the procedure. All medicine(s) and interventions are by my order.
[2019-09-28] MEDS ORDERED: OXYMETAZOLINE 0.05% 30 ML BTL ONE (14:07)
[2019-09-28] MEDS ORDERED: MIDAZOLAM HCL 1 MG/ML 2ML VIAL IV STA (14:07)
[2019-09-28] MEDS ORDERED: fentaNYL citrate 100 MCG/2 ML VIAL IV ONE (14:07)
[2019-09-28] MEDS ORDERED: LIDOCAINE 4% INH SOLN 4 ML BTL NAE ONE (14:07)
[2019-09-28] MEDS ORDERED: LIDOCAINE HCL VISCOUS SOLN 2% 15 ML UDC TOP ONE (14:07)
[2019-09-28] MEDS ORDERED: LIDOCAINE HCL 2% (LOCAL) INJ 50 ML VIAL INFIL STA (14:07)
--- NOTE | 2019-09-28 14:08 | Post Anesthesia Assessment ---
Date of Service September 28, 2019 Post Sedation Assessment Vital Signs Temp Pulse Pulse Pulse Resp BP Pulse Ox 09/28/19 13:55 80 16 139/88 95 09/28/19 13:50 88 20 188/91 H 95 09/28/19 13:45 84 20 173/86 H 94 09/28/19 10:52 82 18 91 09/28/19 07:32 37.0 C 86 16 143/86 H 95 09/28/19 07:07 84 18 93 09/28/19 03:10 81 16 94 09/27/19 22:51 36.8 C 83 16 131/72 92 09/27/19 20:22 82 163/80 H 09/27/19 20:03 80 20 96 09/27/19 15:47 36.9 C 75 16 140/83 93 09/27/19 15:43 76 18 94 Discharge Sedation Level of Care: Fast Track Phase II Post Sedation Plan On clinical assessment, the patient appears to have tolerated the sedation without complications. Patient is recovering as anticipated. Patient will continue to be monitored by nursing and may be discharged when sedation discharge criteria are met per below protocol. Upon Completions of procedure up to 15 minutes continue every 5 minute vital signs and the P.A.R. score; then discharge to a Phase I or Fast Track to Phase II per the following guidelines: * Discharge Patient to appropriate Phase II area if PAR is 8 or greater or return to pre- procedure baseline. The post - procedure orders will be as directed. * If PAR score is less than 8 or not return to pre-procedure baseline then patient will follow Phase I monitoring till PAR is reached for Phase II. The Phase I may be done in procedure room or may call to secure a Phase I area. * If naloxone or flumazenil are used for reversal, hold in Phase I for continued monitoring from when last reversal dose was given for a minimum of 60 minutes or longer pending the nurse and/or physician discretion of patient condition before discharge to Phase II. Please call the Sedation Physician to re-evaluate and complete post-note for discharge to Phase II area. Do NOT discharge from procedure sedation or Phase 1 until post- sedation evalua tion note is complete by procedure /sedation MD Sedation Discharge Instructions to be given to the patient at discharge to home.
--- NOTE | 2019-09-28 14:11 | Procedure Note ---
Procedure Note: Bronchoscopy Procedure Procedure: Fiberoptic bronchoscopy Bronchoalveolar lavage Conscious sedation Provider: Leandro Trent MD Consent: Signed by patient and timeout verified prior to procedure. Sedation start: 1349 Sedation end: 1410 Conscious sedation: 150 mg fentanyl, 6 mg Versed, topical lidocaine per RT magno col Procedure: Patient was brought to the bronchoscopy suite. Consent was verified. Appropriate radiographic studies had been reviewed prior to the procedure. Standard monitoring was applied. Oxygen was administered. After topical anesthesia of the airways per respiratory therapy protocol, the fiberoptic scope was advanced through the right nares without difficulty. Oropharynx was unremarkable. Vocal cords were visualized and were normal in function and appearance. Topical anesthesia of the cords was achieved with instillation of lidocaine through the scope. Scope was then passed through the vocal cords. The trachea was mildly tortuous. Main sultana was sharp. Anesthesia of the lower airways was achieved with instillation of lidocaine through the scope. A sequential and systematic examination of the lower airways was conducted. The right-sided airways were widely patent and the mucosa appeared normal. Left-sided airways were widely and the mucosa appeared normal. Trivial mucoid secretions were identified. Once the inspection bronchoscopy was completed, the scope was wedged into the anterior segment of the left upper lobe. BAL was performed with instillation of 2 aliquots of 60 mL sterile saline. Return was optimal and slightly cloudy. No evidence of pulmonary hemorrhage. Fluid will be sent for microbiologic and cytologic analysis The bronchoscope was then removed from the airways. The patient tolerated the procedure well without obvious complication. Patient was returned to the recovery room. Impression: 1. Normal inspection bronchoscopy. 2. Successful BAL anterior segment left upper lobe, await cytology and microbiologic analysis
[2019-09-28] MEDS: ACETAMINOPHEN 325 MG TAB PO PRN (17:19)
--- NOTE | 2019-09-28 17:24 | Hospitalist Progress Note ---
Date of Service September 28, 2019 Assessment & Plan (1) Atypical pneumonia: - Initially diagnosed with acute bronchitis in Aug 2019, has not had any improvement following 2 rounds of both Z-skye & steroids. - Procal <0.05, BNP 864. - CT chest showed scattered groundglass and nodular airspace opacities and bilateral hilar lymph nodes. - Influenza and Legionella were negative. - Continue Rocephin and Doxycycline - can consider d/c'ing abx per pulm recs, is not likely bacterial in setting of negative procal. - Duoneb q4hr ATC, Mucinex BID, Tessalon perles TID scheduled. IS and Flutter valve. - Consulted pulm service, appreciate input. S/p bronch today, cultures are pending. (2) Hypoxia: - Has been requiring 2L via NC, no improvement over last 24 hours. - S/p outpatient steroid and Azithromycin course x 2; PNA treatment as noted above. - Atypical findings noted on chest CT. - CAM level pending to rule out sarcoidosis; MAC, ANCA also pending. - Pulm consulted, s/p bronch today with cultures and cytology pending. -starting IV steroids (3) Pericarditis: - Diagnosed with pericarditis on 09/19/19; started Colchicine and scheduled Motrin - continue meds. - Stress test completed in Aug due to chest pain, was negative for cardiac ischemia. - Has ongoing chest pain - consider addition of steroids for inflammation. - Lyme titer negative; did have h/o EBV in February 2019. (4) Pericardial effusion: - Small pericardial effusion noted on previous echo in Aug 2019. - Limited 2D echo showed resolution of effusion. (5) Acute bronchitis: - See work up/history above. (6) Hypertension: - Continue Irbesartan 75 mg daily, HCTZ 25 mg daily, Coreg 6.25 mg BID, Amlodipine 2.5 mg daily. - BP well controlled. (7) GERD (gastroesophageal reflux disease): - PPI daily. (8) Depression: - Continue SSRI as prescribed. (9) Anxiety: - Continue SSRI. - Holding home benzo. (10) Anemia: - Monitor CBC daily. - Iron studies showed low iron, slightly low-normal ferritin. May be anemia of chronic dz vs. iron deficiency. (11) Headache: - Ibuprofen TID; Tylenol prn. (12) Hypokalemia: - K level 3.0 - ordered KCl 60 mEq PO. (13) Ulcerative colitis: - H/o, first episode in 2000 with bloody stools. Was on steroids and another targeted agent but all meds are now discontinued. - Does not follow with a guest relation officer. - No evidence of acute flare. (14) Multiple sclerosis: - Pt. reports she was diagnosed with MS in 2000 after developing arm/leg tingling/numbness. She has lesions noted on brain MRI. - Followed with Dr. Patel for years but did not have any further symptoms/require treatment. - Recent evaluation by neuro in 2018 did not confirm diagnosis of MS; MRI of brain February 2019 showed patchy nonenhancing foci of signal abnormality that were nonspecific. - No evidence of acute flare, will monitor. (15) DVT prophylaxis: - SCDs; Lovenox. Dispo: Med/surg; discharge pending improvement in resp issues. S/p bronch this afternoon. Supervising Physician Co-Signing Physician Notes PA Supervision Note: I did not personally see or examine the patient today, but I verified all robins points of APRIL Reyna's assessment and plan with the following exceptions/additions: None Subjective Pt. had ongoing SOB at rest and with exertion along with left sided chest pain this morning. No improvement in symptoms with IV abx. S/p bronchoscopy today, pulm following. Review of Systems Review of Systems: All systems reviewed & are unremarkable except as noted in HPI & below Constitutional: + fatigue, + weakness and + anorexia; no fever and no chills Respiratory: + cough, + dyspnea and + dyspnea on exertion; no sputum production and no wheezing Cardiovascular: + chest pain; no radiating jaw, neck or arm pain, no palpitations and no edema Gastrointestinal: no abdominal pain, no nausea and no constipation Genitourinary: no difficulty urinating Musculoskeletal: no back pain and no joint pain Integumentary: no non-healing lesions Physical Exam Physical Exam: General: Resting comfortably HEENT: NC/AT; PERRLA with EOMI; [place] conjunctiva, MMM. No erythema of posterior pharynx Neck: Supple and nontender Cardiac: RRR Lungs: 2L via NC; mild crackles in bilat lower lung reyes. Abdomen: Bowel normoactive X 4; Nontender to palpation Extremities: Warm. No edema present Neuro: No focal weakness Skin: No rash Results & Data Vital Signs (Past 12 Hours) Vital Signs Temp Pulse Pulse Pulse Resp BP Pulse Ox 09/28/19 16:50 36.8 C 86 16 149/75 H 94 09/28/19 15:50 36.8 C 91 H 16 143/82 H 93 09/28/19 15:42 87 16 92 09/28/19 15:14 36.8 C 80 16 133/80 94 09/28/19 14:48 36.9 C 85 20 131/82 91 09/28/19 14:20 88 20 130/73 94 09/28/19 14:15 83 20 127/75 91 09/28/19 14:10 81 16 123/68 90 09/28/19 14:05 86 16 144/77 H 90 09/28/19 14:00 91 H 16 180/98 H 89 L 09/28/19 13:55 80 16 139/88 95 09/28/19 13:50 88 20 188/91 H 95 09/28/19 13:45 84 20 173/86 H 94 09/28/19 10:52 82 18 91 09/28/19 07:32 37.0 C 86 16 143/86 H 95 09/28/19 07:07 84 18 93 Laboratory Results 09/28/19 09/28/19 09/28/19 Range/Units 14:05 07:42 07:42 WBC 8.21 (4.8-10.8) K/uL RBC 3.96 L (4.2-5.4) M/uL Hgb 10.6 L (12.0-16.0) g/dL Hct 32.7 L (37-47) % MCV 82.6 (80-100) fL MCH 26.8 (25-34) pg MCHC 32.4 (32-36) g/dL RDW Std Deviation 46.2 (36.4-46.3) fL RDW Coeff of Bria 15.5 H (11.5-14.5) % Plt Count 288 (130-400) K/uL MPV 8.6 (7.4-10.4) fL Sodium 138 (136-145) mmol/L Potassium 3.0 L (3.5-5.1) mmol/L Chloride 105 (98-107) mmol/L Carbon Dioxide 28 (21-32) mmol/L Anion Gap 5.0 (3-11) BUN 10 (7-18) mg/dl Creatinine 0.71 (0.6-1.2) mg/dl Est Cr Clr Drug Dosing 92.7 ml/min Est GFR ( Amer) 111.1 Est GFR (Non-Af Amer) 95.9 BUN/Creatinine Ratio 13.6 (10-20) Glucose 107 H (70-99) mg/dl Calcium 8.3 L (8.5-10.1) mg/dl Iron 18 L (35-150) mcg/dl TIBC 289 (250-450) mcg/dl Transferrin 234 (200-360) mg/dl Transferrin % Sat 5 L (15-50) % Ferritin 58.7 (8-388) ng/ml Total Bilirubin 0.3 (0.2-1) mg/dl AST 13 L (15-37) U/L ALT 17 (12-78) U/L Alkaline Phosphatase 97 (45-117) U/L Total Protein 7.0 (6.4-8.2) gm/dl Albumin 2.5 L (3.4-5.0) gm/dl Globulin 4.5 H (2.5-4.0) gm/dl Albumin/Globulin Ratio 0.6 L (0.9-2) Procalcitonin (0-0.5) ng/ml Fluid Neutrophils % Pending Fluid Lymphocytes % Pending Fluid Eosinophils % Pending Fl Monocyt/Macrophag % Pending Urine Legionella Ag 09/27/19 09/26/19 Range/Units 16:25 16:00 WBC (4.8-10.8) K/uL RBC (4.2-5.4) M/uL Hgb (12.0-16.0) g/dL Hct (37-47) % MCV (80-100) fL MCH (25-34) pg MCHC (32-36) g/dL RDW Std Deviation (36.4-46.3) fL RDW Coeff of Bria (11.5-14.5) % Plt Count (130-400) K/uL MPV (7.4-10.4) fL Sodium (136-145) mmol/L Potassium (3.5-5.1) mmol/L Chloride (98-107) mmol/L Carbon Dioxide (21-32) mmol/L Anion Gap (3-11) BUN (7-18) mg/dl Creatinine (0.6-1.2) mg/dl Est Cr Clr Drug Dosing ml/min Est GFR ( Amer) Est GFR (Non-Af Amer) BUN/Creatinine Ratio (10-20) Glucose (70-99) mg/dl Calcium (8.5-10.1) mg/dl Iron (35-150) mcg/dl TIBC (250-450) mcg/dl Transferrin (200-360) mg/dl Transferrin % Sat (15-50) % Ferritin (8-388) ng/ml Total Bilirubin (0.2-1) mg/dl AST (15-37) U/L ALT (12-78) U/L Alkaline Phosphatase (45-117) U/L Total Protein (6.4-8.2) gm/dl Albumin (3.4-5.0) gm/dl Globulin (2.5-4.0) gm/dl Albumin/Globulin Ratio (0.9-2) Procalcitonin < 0.05 (0-0.5) ng/ml Fluid Neutrophils % Fluid Lymphocytes % Fluid Eosinophils % Fl Monocyt/Macrophag % Urine Legionella Ag SEE NOTE PG Care Time/CCT Total # of Minutes Spent Total Time Spent with Patient: Total time spent is greater than 50% in coordination of care (as documented) at patient's floor/unit and/or counseling patient: (1) Pericarditis Chronicity: acute Pericarditis type: unspecified type Qualified Code(s): I30.9 - Acute pericarditis, unspecified
[2019-09-28 20:18] LABS: Neutrophil Body Fluid Man 41 %
[2019-09-28 20:19] LABS: Basophil Body Fluid Man 1 %; Eosinophil Body Fluid Man 3 %; Fluid Mono/Macrophage 30 %; Lymphocyte Body Fluid Man 25 %
[2019-09-28] MEDS: methylPREDNISolone 30 MG in SYRINGE 0 ML IV SCH (20:22)
[2019-09-28] MEDS: FLUOXETINE HCL 20 MG CAP PO SCH (20:23)
[2019-09-28] MEDS: LORazepam 1 MG TAB PO PRN (20:33)
[2019-09-29] MEDS: ALBUT/IPRATROP 3MG/0.5MG NEB 3 ML VIAL NEB SCH ×6 (02:30→23:41)
[2019-09-29] MEDS: methylPREDNISolone 30 MG in SYRINGE 0 ML IV SCH (03:55)
[2019-09-29] MEDS ORDERED: OXYMETAZOLINE 0.05% 30 ML BTL NAE SCH (06:00)
[2019-09-29 06:58] LABS: Hematocrit (blood only) 34.5 % (37-47); Hemoglobin 11.3 g/dL (12.0-16.0); Mean Corpuscular Hemoglobin 26.7 pg (25-34); Mean Corpuscular Hgb Conc 32.8 g/dL (32-36); Mean Corpuscular Volume 81.4 fL (80-100); Mean Platelet Volume 8.6 fL (7.4-10.4); Platelet Count 346 K/uL (130-400); RDW Coefficient of Variation 15.1 % (11.5-14.5); RDW Standard Deviation 44.1 fL (36.4-46.3); Red Blood Count 4.24 M/uL (4.2-5.4); White Blood Count 8.65 K/uL (4.8-10.8)
[2019-09-29 07:38] LABS: Albumin Level 2.6 gm/dl (3.4-5.0); BUN Creatinine Ratio 17.1 (10-20); Calcium 8.6 mg/dl (8.5-10.1); Creatinine Clr Calc Pharmacy 104.5 ml/min; Potassium 3.3 mmol/L (3.5-5.1)
[2019-09-29 07:40] LABS: Albumin Globulin Ratio 0.5 (0.9-2); Bilirubin,Total 0.4 mg/dl (0.2-1); Total Protein 7.6 gm/dl (6.4-8.2)
[2019-09-29] MEDS: AMLODIPINE BESYLATE 5 MG TAB PO SCH (07:56)
[2019-09-29] MEDS: FLUTICASONE HFA 110MCG INHALER INH SCH ×2 (07:57→20:09)
[2019-09-29] MEDS: hydroCHLOROthiazide 25 MG TAB PO SCH (07:57)
[2019-09-29] MEDS: IRBESARTAN 75 MG TAB PO SCH (07:57)
[2019-09-29] MEDS: guaiFENesin 600 MG TABCR PO SCH ×2 (07:58→20:09)
[2019-09-29] MEDS: ENOXAPARIN INJ 40 MG/0.4 ML SYR SQ SCH (07:58)
[2019-09-29] MEDS: PANTOprazole 40 MG TAB PO SCH (07:58)
[2019-09-29] MEDS: ESTROGENS, CONJUGATED 0.625 MG TAB PO SCH (07:58)
[2019-09-29] MEDS: BENZONATATE 100 MG CAPSULE PO SCH ×3 (07:58→20:09)
[2019-09-29] MEDS: COLCHICINE 0.6 MG TAB PO SCH ×2 (07:58→20:09)
[2019-09-29] MEDS ORDERED: POTASSIUM CHLORIDE 20 MEQ TABCR PO STA (08:29)
--- NOTE | 2019-09-29 08:31 | Pulmonology Progress Note ---
Date of Service September 29, 2019 Assessment & Plan (1) Shortness of breath: Impression: 54-year-old female with abnormal CT scan and shortness of breath. The CT scan is suggestive of an infectious or inflammatory etiology. Doubt bacterial etiology given the fact that she has had 2 courses of antibiotics and she has a negative pro calcitonin. Pulmonary manifestations of inflammatory bowel disease are possible. Viral would be in the differential. Atypical pulmonary edema, or pulmonary hemorrhage would also be on the differential. Echocardiogram showed no evidence of pericardial effusion. Recommendations: 1. Abnormal CT scan: Serologies pending. She did have acute EBV infection 5 months ago although pattern is not entirely consistent with EBV infection. BAL does not appear consistent with acute infection. It is an inflammatory process and subacute infection is possible. We will add mycoplasma and chlamydia serologies. Would continue azithromycin as well as steroids (increase solumedrol to 125 q8). Can discontinue rocephin. 2. Management of patient's other medical issues per primary service. 3. Continue oxygen titrated to keep saturations at or above 88%. Discussed with patient at bedside. Will follow. When the patient feels she can ambulate comfortably, she can be discharged with pulmonary follow up. (2) Hypoxia: (3) Abnormal CT scan of lung: Subjective Patient is status post bronchoscopy. She was started on 30 mg of Solu-Medrol every 8 hours. She thinks this has improved her chest tightness but continues to complain of shortness of breath with exertion. She is coughing but only expectorating small amounts of white clear phlegm. No hemoptysis. Her arthralgias are mildly better. Review of Systems Review of Systems: Unchanged from prior Physical Exam Constitutional: WD/WN, vitals as above Neck: trachea midline, no thyromegaly Respiratory: normal respiratory effort, lungs clear to auscultation Cardiovascular: RRR, no murmur, no edema Gastrointestinal (Abdomen): normal bowel sounds, soft, nontender, no hepatosplenomegaly Musculoskeletal: Extremities: extremities normal to inspection Skin: no rashes, warm and dry Neurologic: Nonfocal exam Lymphatic: no cervical lymphadenopathy Results & Data Vital Signs (Past 12 Hours) Vital Signs Temp Pulse Pulse Resp BP Pulse Ox 09/29/19 07:36 36.6 C 75 18 133/76 91 09/29/19 06:52 86 18 97 09/29/19 03:36 36.7 C 74 18 134/68 94 09/28/19 23:20 87 16 98 09/28/19 22:45 37.0 C 90 17 165/83 H 90 09/28/19 21:16 87 168/87 H Laboratory Results 09/29/19 06:23 09/29/19 06:23 BAL differential, 41% neutrophils, 25% lymphocytes, 3% eosinophils, 1% basophils and 30% monocyte macrophages BAL Gram stain, AFB stain, and fungal stains currently pending. IgE pending MAC pending ANCA pending Anti-GBM pending Rheumatoid factor less than 14 PG Care Time/CCT Total # of Minutes Spent Total Time Spent with Patient: Total time spent is greater than 50% in coordination of care (as documented) at patient's floor/unit and/or counseling patient:
[2019-09-29] MEDS: carvediloL 6.25 MG TAB PO SCH ×2 (08:37→20:09)
[2019-09-29] MEDS: methylPREDNISolone 125 MG in SYRINGE 0 ML IV SCH ×2 (09:16→16:55)
[2019-09-29] MEDS: DOXYCYCLINE HYCLATE 100 MG CAP PO SCH ×2 (10:27→20:09)
--- NOTE | 2019-09-29 15:33 | Hospitalist Progress Note ---
Date of Service September 29, 2019 Assessment & Plan (1) Atypical pneumonia: - Initially diagnosed with acute bronchitis in Aug 2019, has not had any improvement following 2 rounds of both Z-skye & steroids. - Procal <0.05 & BNP 864. - CT chest showed scattered groundglass and nodular airspace opacities and bilateral hilar lymph nodes. - Influenza and Legionella antigen were negative. - Continue Doxycycline to complete 7 day course; D/c'ed Ceftriaxone. - Duoneb q4hr ATC, Mucinex BID, Tessalon perles TID scheduled. IS and Flutter valve. - Consulted pulm service, appreciate input. S/p bronch on 09/28, results pending. (2) Hypoxia: - Has been requiring 3-4L via NC, some improvement noted with SOB following bronch and initiation of IV steroids. - S/p outpatient steroid and Azithromycin course x 2; PNA treatment as noted above. - Atypical findings noted on chest CT. - CAM level pending to rule out sarcoidosis; MAC, ANCA pending. - Pulm consulted, s/p bronch on 09/28 with results pending. - Started Solu-medrol 125 mg IV q8hr per pulm recs. (3) Pericarditis: - Diagnosed with pericarditis on 09/19/19; started Colchicine on 09/19 -- will continue. Hold ibuprofen in setting of IV steroids to avoid gastritis/PUD. - Stress test completed in Aug due to chest pain, was negative for cardiac ischemia. - On IV steroids, now has complete resolution of chest pain. - Lyme titer negative; did have h/o EBV in February 2019. (4) Pericardial effusion: - Small pericardial effusion noted on previous echo in Aug 2019. - Limited 2D echo showed resolution of effusion. (5) Acute bronchitis: - See work up/history above. (6) Hypertension: - Continue Irbesartan 75 mg daily, HCTZ 25 mg daily, Coreg 6.25 mg BID, Amlodipine 2.5 mg daily. - BP well controlled. (7) GERD (gastroesophageal reflux disease): - PPI daily. (8) Depression: - Continue SSRI as prescribed. (9) Anxiety: - Continue SSRI. - Holding home benzo. (10) Anemia: - Iron deficiency anemia noted on labs. - FOBT is pending. - Will start ferrous sulfate 325 mg BID. - Last colonoscopy ~1.5 yrs ago, was negative; would like to establish care with [facility] in future, will need EGD to evaluate for bleeding. (11) Headache: - Tylenol prn. (12) Hypokalemia: - K level 3.4 - ordered K 40 mEq PO. (13) Ulcerative colitis: - H/o, first episode in 2000 with bloody stools. Was on steroids and ano ther targeted agent but all meds are now discontinued. - Colonoscopy q3yrs, most recently 1.5 years ago. - No evidence of acute flare. (14) Multiple sclerosis: - Pt. reports she was diagnosed with MS in 2000 after developing arm/leg tingling/numbness. She has lesions noted on brain MRI. - Followed with Dr. Patel for years but did not have any further symptoms/require treatment. - Recent evaluation by neuro in 2018 did not confirm diagnosis of MS; MRI of brain February 2019 showed patchy nonenhancing foci of signal abnormality that were nonspecific. - No evidence of acute flare, will monitor. (15) DVT prophylaxis: - SCDs; Lovenox. Dispo: Med/surg; discharge pending improvement in resp issues. Will need 2 step with RT for home oxygen. Supervising Physician Co-Signing Physician Notes PA Supervision Note: I did not personally see or examine the patient today, but I verified all robins points of APRIL Reyna's assessment and plan with the following exceptions/additions: None Subjective Pt. reports SOB is slightly improved today, but has been requiring 3-4L via NC post bronch. Chest pain is now completely resolved after starting high dose IV steroids. Had diarrhea yesterday, no BM yet today. Denies bleeding withs BMs. Last colonoscopy was ~1.5 years ago and negative for acute findings. She has a colonoscopy q3yrs in setting of UC. Has underlying iron deficiency anemia, will need EGD in near future. Pt. would like to f/u with [facility] in future. Review of Systems Review of Systems: All systems reviewed & are unremarkable except as noted in HPI & below Constitutional: + fatigue, + weakness and + anorexia; no fever and no chills Respiratory: + dyspnea and + dyspnea on exertion; no cough and no wheezing Cardiovascular: no chest pain, no palpitations and no edema Gastrointestinal: + diarrhea/loose stools; no abdominal pain, no nausea, no blood in stools and no melena Genitourinary: no difficulty urinating Musculoskeletal: no back pain and no joint pain Physical Exam Physical Exam: General: Resting comfortably HEENT: NC/AT; PERRLA with EOMI; [place] conjunctiva, MMM. No erythema of posterior pharynx Neck: Supple and nontender Cardiac: RRR Lungs: 4L via NC; CTA throughout Abdomen: Bowel normoactive X 4; Nontender to palpation Extremities: Warm. No edema present Neuro: No focal weakness Skin: No rash Results & Data Vital Signs (Past 12 Hours) Vital Signs Temp Pulse Resp BP Pulse Ox 09/29/19 14:55 36.7 C 78 19 129/74 88 L 09/29/19 14:49 80 18 87 L 09/29/19 11:13 77 18 92 09/29/19 11:07 36.7 C 82 18 122/72 91 09/29/19 07:36 36.6 C 75 18 133/76 91 09/29/19 06:52 86 18 97 09/29/19 03:36 36.7 C 74 18 134/68 94 Laboratory Results 09/29/19 09/29/19 09/29/19 Range/Units 08:41 06:23 06:23 WBC 8.65 (4.8-10.8) K/uL RBC 4.24 (4.2-5.4) M/uL Hgb 11.3 L (12.0-16.0) g/dL Hct 34.5 L (37-47) % MCV 81.4 (80-100) fL MCH 26.7 (25-34) pg MCHC 32.8 (32-36) g/dL RDW Std Deviation 44.1 (36.4-46.3) fL RDW Coeff of Bria 15.1 H (11.5-14.5) % Plt Count 346 (130-400) K/uL MPV 8.6 (7.4-10.4) fL Sodium 135 L (136-145) mmol/L Potassium 3.3 L (3.5-5.1) mmol/L Chloride 99 (98-107) mmol/L Carbon Dioxide 29 (21-32) mmol/L Anion Gap 7.0 (3-11) BUN 11 (7-18) mg/dl Creatinine 0.63 (0.6-1.2) mg/dl Est Cr Clr Drug Dosing 104.5 ml/min Est GFR ( Amer) 117.0 Est GFR (Non-Af Amer) 101.0 BUN/Creatinine Ratio 17.1 (10-20) Glucose 156 H (70-99) mg/dl Calcium 8.6 (8.5-10.1) mg/dl Total Bilirubin 0.4 (0.2-1) mg/dl AST 13 L (15-37) U/L ALT 17 (12-78) U/L Alkaline Phosphatase 104 (45-117) U/L Total Protein 7.6 (6.4-8.2) gm/dl Albumin 2.6 L (3.4-5.0) gm/dl Globulin 5.0 H (2.5-4.0) gm/dl Albumin/Globulin Ratio 0.5 L (0.9-2) Fluid Neutrophils % % Fluid Lymphocytes % % Fluid Eosinophils % % Fluid Basophils % % Fl Monocyt/Macrophag % % C. pneumoniae IgG Ab Pending C. trachomatis IgG Ab Pending C. psittaci IgG Titer Pending Mycoplasma pneumon IgG Pending Mycoplasma pneumon IgM Pending 09/28/19 Range/Units 14:05 WBC (4.8-10.8) K/uL RBC (4.2-5.4) M/uL Hgb (12.0-16.0) g/dL Hct (37-47) % MCV (80-100) fL MCH (25-34) pg MCHC (32-36) g/dL RDW Std Deviation (36.4-46.3) fL RDW Coeff of Bria (11.5-14.5) % Plt Count (130-400) K/uL MPV (7.4-10.4) fL Sodium (136-145) mmol/L Potassium (3.5-5.1) mmol/L Chloride (98-107) mmol/L Carbon Dioxide (21-32) mmol/L Anion Gap (3-11) BUN (7-18) mg/dl Creatinine (0.6-1.2) mg/dl Est Cr Clr Drug Dosing ml/min Est GFR ( Amer) Est GFR (Non-Af Amer) BUN/Creatinine Ratio (10-20) Glucose (70-99) mg/dl Calcium (8.5-10.1) mg/dl Total Bilirubin (0.2-1) mg/dl AST (15-37) U/L ALT (12-78) U/L Alkaline Phosphatase (45-117) U/L Total Protein (6.4-8.2) gm/dl Albumin (3.4-5.0) gm/dl Globulin (2.5-4.0) gm/dl Albumin/Globulin Ratio (0.9-2) Fluid Neutrophils % 41 % Fluid Lymphocytes % 25 % Fluid Eosinophils % 3 % Fluid Basophils % 1 % Fl Monocyt/Macrophag % 30 % C. pneumoniae IgG Ab C. trachomatis IgG Ab C. psittaci IgG Titer Mycoplasma pneumon IgG Mycoplasma pneumon IgM PG Care Time/CCT Total # of Minutes Spent Total Time Spent with Patient: Total time spent is greater than 50% in coordination of care (as documented) at patient's floor/unit and/or counseling patient: (1) Pericarditis Chronicity: acute Pericarditis type: unspecified type Qualified Code(s): I30.9 - Acute pericarditis, unspecified
[2019-09-29] MEDS: FERROUS SULFATE 325 MG TAB PO SCH (16:55)
[2019-09-29] MEDS: LORazepam 1 MG TAB PO PRN (20:09)
[2019-09-29] MEDS: FLUOXETINE HCL 20 MG CAP PO SCH (20:09)
[2019-09-30] MEDS: methylPREDNISolone 125 MG in SYRINGE 0 ML IV SCH ×2 (00:09→08:50)
[2019-09-30] MEDS: ACETAMINOPHEN 325 MG TAB PO PRN ×2 (03:23→13:01)
[2019-09-30] MEDS: ALBUT/IPRATROP 3MG/0.5MG NEB 3 ML VIAL NEB SCH ×6 (03:47→23:36)
[2019-09-30] MEDS ORDERED: LORazepam 0.5 MG/1 ML VIAL IV STA (05:20)
[2019-09-30 08:05] LABS: BUN Creatinine Ratio 18.7 (10-20); Calcium 8.7 mg/dl (8.5-10.1); Creatinine Clr Calc Pharmacy 78.4 ml/min; Est GFR (African American) 90.7; Est GFR (Non-African American) 78.2; Potassium 2.9 mmol/L (3.5-5.1)
[2019-09-30] MEDS ORDERED: POTASSIUM CHLORIDE 20 MEQ TABCR PO STA (08:25)
[2019-09-30] MEDS: FERROUS SULFATE 325 MG TAB PO SCH ×2 (08:44→17:55)
[2019-09-30] MEDS: IRBESARTAN 75 MG TAB PO SCH (08:45)
[2019-09-30] MEDS: COLCHICINE 0.6 MG TAB PO SCH ×2 (08:46→20:10)
[2019-09-30] MEDS: FLUTICASONE HFA 110MCG INHALER INH SCH ×2 (08:47→20:09)
[2019-09-30] MEDS: carvediloL 6.25 MG TAB PO SCH ×2 (08:47→20:11)
[2019-09-30] MEDS: ENOXAPARIN INJ 40 MG/0.4 ML SYR SQ SCH (08:48)
[2019-09-30] MEDS: guaiFENesin 600 MG TABCR PO SCH ×2 (08:48→20:11)
[2019-09-30] MEDS: ESTROGENS, CONJUGATED 0.625 MG TAB PO SCH (08:49)
[2019-09-30] MEDS: AMLODIPINE BESYLATE 5 MG TAB PO SCH (08:49)
[2019-09-30] MEDS: PANTOprazole 40 MG TAB PO SCH (08:50)
[2019-09-30] MEDS: DOXYCYCLINE HYCLATE 100 MG CAP PO SCH ×2 (08:51→20:12)
[2019-09-30] MEDS: BENZONATATE 100 MG CAPSULE PO SCH ×3 (08:51→20:12)
[2019-09-30] MEDS ORDERED: POTASSIUM CHLORIDE 20 MEQ TABCR PO SCH (12:00)
[2019-09-30] MEDS: ONDANSETRON INJ 2 MG/ML 2 ML VIAL IV PRN ×2 (13:00→22:46)
--- NOTE | 2019-09-30 15:47 | Pulmonology Progress Note ---
Date of Service September 30, 2019 Assessment & Plan (1) Shortness of breath: Impression: 54-year-old female with abnormal CT scan and shortness of breath. The CT scan is suggestive of an infectious or inflammatory etiology. Bronchoscopy showed no growth on cultures and the patient is empirically improved on high-dose steroids Recommendations: 1. Abnormal CT scan: Serologies pending. She is much better on Solu-Medrol. Would transition her to prednisone 50 mg a day with plans for a slow taper over the next 6 to 8 weeks. Bactrim prophylaxis 1 tablet every Thursday should be initiated when she leaves the hospital. If she is unable to tolerate Bactrim due to sulfa issues, alternative PJP prophylaxis would be recommended. She will need a follow-up CT scan in 4 to 6 weeks with follow-up PFTs. I would be happy to see her back in the pulmonary clinic 2. Management of patient's other medical issues per primary service. 3. Patient's hypoxemia is now resolved Discussed with patient at bedside and with admitting hospitalist service. Okay to discharge from a pulmonary perspective. (2) Hypoxia: (3) Abnormal CT scan of lung: Subjective Patient seen and examined. She states she is feeling better. She is now off oxygen. She is able to walk the halls without feeling short of breath. Unfortunately the steroids are causing significant insomnia. She is not been febrile. No changes to her medical history or review of systems since I saw her last Review of Systems Review of Systems: Unchanged from prior Physical Exam Constitutional: WD/WN, vitals as above ENMT: Mallampati Class: II Neck: trachea midline, no thyromegaly Respiratory: normal respiratory effort, lungs clear to auscultation normal respiratory effort Cardiovascular: RRR, no murmur, no edema Gastrointestinal (Abdomen): normal bowel sounds, soft, nontender, no hepatosplenomegaly Musculoskeletal: Extremities: extremities normal to inspection Skin: no rashes, warm and dry Lymphatic: no cervical lymphadenopathy Results & Data Vital Signs (Past 12 Hours) Vital Signs Temp Pulse Pulse Resp BP Pulse Ox 09/30/19 15:19 80 16 95 09/30/19 12:57 82 20 94 09/30/19 07:59 36.8 C 96 H 16 160/80 H 93 09/30/19 07:26 94 H 16 97 09/30/19 03:49 89 18 98 Laboratory Results 09/29/19 06:23 09/30/19 06:38 Mycoplasma and Chlamydia serologies currently pending. Autoimmune serologies pending Diagnostic Findings No new films PG Care Time/CCT Total # of Minutes Spent Total Time Spent with Patient: Total time spent is greater than 50% in coordination of care (as documented) at patient's floor/unit and/or counseling patient: 37 minutes reviewing case and coordinating care
[2019-09-30] MEDS ORDERED: ZOLPIDEM TARTRATE 5 MG TAB PO PRN ×2 (16:03→18:09)
--- NOTE | 2019-09-30 18:39 | Hospitalist Progress Note ---
Date of Service September 30, 2019 Assessment & Plan (1) Atypical pneumonia: - Initially diagnosed with acute bronchitis in Aug 2019, has not had any improvement following 2 rounds of both Z-skye & steroids. - Procal <0.05 & BNP 864. - CT chest showed scattered groundglass and nodular airspace opacities and bilateral hilar lymph nodes. - Influenza and Legionella antigen were negative. Chlamydia and Mycoplasma are pending. - Continue Doxycycline to complete 7 day course; D/c'ed Ceftriaxone. - Duoneb q4hr ATC, Mucinex BID, Tessalon perles TID scheduled. IS and Flutter valve. - Consulted pulm service, appreciate input. S/p bronch on 09/28, cytology negative. (2) Hypoxia: - Weaned to room air following initiation of steroids. - S/p outpatient steroid and Azithromycin course x 2; PNA treatment as noted above. - Atypical findings noted on chest CT. - CAM level was negative; MAC, ANCA pending. - Pulm consulted, s/p bronch on 09/28. - Convert Solu-medrol to Prednisone 50 mg PO daily. (3) Pericarditis: - Diagnosed with pericarditis on 09/19/19; started Colchicine on 09/19 -- will continue. Hold ibuprofen in setting of IV steroids to avoid gastritis/PUD. - Stress test completed in Aug due to chest pain, was negative for cardiac ischemia. - On steroids - has noticed improvement in symptoms. - Lyme titer negative; did have h/o EBV in February 2019. (4) Pericardial effusion: - Small pericardial effusion noted on previous echo in Aug 2019. - Limited 2D echo showed resolution of effusion. (5) Acute bronchitis: - See work up/history above. (6) Hypertension: - Continue Irbesartan 75 mg daily, Coreg 6.25 mg BID. - Will d/c HCTZ - has had chronic hypokalemia during this admission. Increase Amlodipine to 5 mg daily. (7) GERD (gastroesophageal reflux disease): - PPI daily. (8) Depression: - Continue SSRI as prescribed. (9) Anxiety: - Continue SSRI. - Holding home benzo. (10) Anemia: - Iron deficiency anemia noted on labs. - FOBT was negative. - Started ferrous sulfate 325 mg BID. - Last colonoscopy ~1.5 yrs ago, was negative; would like to establish care with [facility] in future, will need EGD to evaluate for bleeding. (11) Headache: - Tylenol prn. (12) Hypokalemia: - Has required daily replacement during this admission in setting of HCTZ. - Will d/c HCTZ. - Replace KCl prn daily. (13) Ulcerative colitis: - H/o, first episode in 2000 with bloody stools. Was on steroids and another targeted agent but all meds are now discontinued. - Colonoscopy q3yrs, most recently 1.5 years ago. - No evidence of acute flare. - Did develop diarrhea -- reports this is a chronic problem for her. Denies acute bleeding. C diff is pending. (14) Multiple sclerosis: - Pt. reports she was diagnosed with MS in 2000 after developing arm/leg tingling/numbness. She has lesions noted on brain MRI. - Followed with Dr. Patel for years but did not have any further symptoms/require treatment. - Recent evaluation by neuro in 2018 did not confirm diagnosis of MS; MRI of brain February 2019 showed patchy nonenhancing foci of signal abnormality that were nonspecific. - No evidence of acute flare, will monitor. (15) DVT prophylaxis: - SCDs; Lovenox. Dispo: Med/surg; discharge pending improvement in resp issues, likely on 10/01/19. Supervising Physician Co-Signing Physician Notes PA Supervision Note: I did not personally see or examine the patient today, but I verified all robins points of APRIL Reyna's assessment and plan with the following exceptions/additions: None Subjective Pt. is doing well today -- weaned to room air at rest. SOB with exertion is significantly improved. Has slightly increased chest pain today compared to yesterday but overall also improving. Will convert to PO steroids. Discharge likely on 10/01/19. Review of Systems Review of Systems: All systems reviewed & are unremarkable except as noted in HPI & below Constitutional: no fever, no chills, no fatigue and no weakness Respiratory: + dyspnea and + dyspnea on exertion; no cough and no wheezing Cardiovascular: + chest pain; no radiating jaw, neck or arm pain, no palpitations and no edema Gastrointestinal: no abdominal pain, no nausea and no constipation Genitourinary: no difficulty urinating Musculoskeletal: no back pain and no joint pain Physical Exam Physical Exam: General: Resting comfortably HEENT: NC/AT; PERRLA with EOMI; [place] conjunctiva, MMM. No erythema of posterior pharynx Neck: Supple and nontender Cardiac: RRR Lungs: room air; CTA Abdomen: Bowel normoactive X 4; Nontender to palpation Extremities: Warm. No edema present Neuro: No focal weakness Skin: No rash Results & Data Vital Signs (Past 12 Hours) Vital Signs Temp Pulse Pulse Resp BP BP Pulse Ox 09/30/19 15:50 36.6 C 84 17 145/74 H 93 09/30/19 15:19 80 16 95 09/30/19 12:57 82 20 94 09/30/19 07:59 36.8 C 96 H 16 160/80 H 93 09/30/19 07:26 94 H 16 97 Laboratory Results 09/30/19 09/29/19 09/26/19 Range/Units 06:38 18:40 08:19 Sodium 138 (136-145) mmol/L Potassium 2.9 L (3.5-5.1) mmol/L Chloride 102 (98-107) mmol/L Carbon Dioxide 28 (21-32) mmol/L Anion Gap 8.0 (3-11) BUN 16 (7-18) mg/dl Creatinine 0.84 (0.6-1.2) mg/dl Est Cr Clr Drug Dosing 78.4 ml/min Est GFR ( Amer) 90.7 Est GFR (Non-Af Amer) 78.2 BUN/Creatinine Ratio 18.7 (10-20) Glucose 183 H (70-99) mg/dl Calcium 8.7 (8.5-10.1) mg/dl Angiotensin Convert Enz 48 (9-67) U/L Stool Occult Bld Scrn Negative (Negative) PG Care Time/CCT Total # of Minutes Spent Total Time Spent with Patient: Total time spent is greater than 50% in coordination of care (as documented) at patient's floor/unit and/or counseling patient: (1) Pericarditis Chronicity: acute Pericarditis type: unspecified type Qualified Code(s): I30.9 - Acute pericarditis, unspecified
[2019-09-30] MEDS: LORazepam 1 MG TAB PO PRN (20:08)
[2019-09-30] MEDS: FLUOXETINE HCL 20 MG CAP PO SCH (20:11)
[2019-09-30] MEDS ORDERED: methylPREDNISolone 80 MG in SYRINGE 0 ML IV SCH (21:00)
[2019-09-30] MEDS ORDERED: LOPERAMIDE HCL 2 MG CAP PO STA (22:51)
[2019-10-01] MEDS: ALBUT/IPRATROP 3MG/0.5MG NEB 3 ML VIAL NEB SCH ×4 (03:20→15:07)
[2019-10-01 07:35] LABS: BUN Creatinine Ratio 23.8 (10-20); Calcium 7.8 mg/dl (8.5-10.1); Creatinine Clr Calc Pharmacy 78.4 ml/min; Est GFR (African American) 90.7; Est GFR (Non-African American) 78.2; Magnesium 1.5 mg/dl (1.8-2.4); Potassium 2.8 mmol/L (3.5-5.1)
[2019-10-01] MEDS ORDERED: POTASSIUM CHLORIDE 20 MEQ TABCR PO STA (08:15)
[2019-10-01] MEDS ORDERED: LOPERAMIDE HCL 2 MG CAP PO PRN (08:18)
[2019-10-01] MEDS ORDERED: predniSONE 50 MG TAB PO SCH (09:00)
[2019-10-01] MEDS: FERROUS SULFATE 325 MG TAB PO SCH (09:07)
[2019-10-01] MEDS: ENOXAPARIN INJ 40 MG/0.4 ML SYR SQ SCH (09:10)
[2019-10-01] MEDS: FLUTICASONE HFA 110MCG INHALER INH SCH (09:11)
[2019-10-01] MEDS: IRBESARTAN 75 MG TAB PO SCH (09:12)
[2019-10-01] MEDS: carvediloL 6.25 MG TAB PO SCH (09:13)
[2019-10-01] MEDS: guaiFENesin 600 MG TABCR PO SCH (09:13)
[2019-10-01] MEDS: COLCHICINE 0.6 MG TAB PO SCH (09:13)
[2019-10-01] MEDS: ESTROGENS, CONJUGATED 0.625 MG TAB PO SCH (09:14)
[2019-10-01] MEDS: AMLODIPINE BESYLATE 5 MG TAB PO SCH (09:14)
[2019-10-01] MEDS: DOXYCYCLINE HYCLATE 100 MG CAP PO SCH (09:15)
[2019-10-01] MEDS: PANTOprazole 40 MG TAB PO SCH (09:15)
[2019-10-01] MEDS: BENZONATATE 100 MG CAPSULE PO SCH ×2 (09:15→14:00)
[2019-10-01] MEDS: MAGNESIUM SULFATE / D5W 1 GM/100 ML BAG IV SCH ×2 (09:18→10:32)
[2019-10-01] MEDS ORDERED: POTASSIUM CHLORIDE 20 MEQ TABCR PO ONE ×3 (12:00→17:00)
[2019-10-01 16:27] LABS: BUN Creatinine Ratio 23.6 (10-20); Calcium 8.2 mg/dl (8.5-10.1); Creatinine Clr Calc Pharmacy 80.3 ml/min; Est GFR (African American) 93.4; Est GFR (Non-African American) 80.6; Potassium 3.7 mmol/L (3.5-5.1)
--- NOTE | 2019-10-01 18:56 | Discharge Summary ---
Date of Service October 01, 2019 Admission HPI Per Admitting Provider This is a 54 yo M with recent URI treated with azithromycin as an outpatient, chronic fatigue and malaise, anxiety and depression, HTN, HLD, breast cancer, multiple sclerosis, ulcerative colitis, and recent pericarditis treated with colchicine and motrin. She reports that her symptoms including shortness of breath, fatigue, malaise, nausea, vomiting, diarrhea started last Thursday and has been worsening since. She reports being unable to walk across the room approximately 20 feet without becoming winded at this point. She denies any cough or sputum production. She denies any fevers, chills or sweats. Patient notes that she has had a poor appetite, has been drinking very little fluids and is having issues with dry heaves and nausea. She also notices her urine is dark. CT of the chest was completed and is negative for pulmonary embolism, showing infiltrate in bilateral upper lobes, suspicious for atypical pneumonia. Patient has been placed on 3L via NC in the ER, IV Rocephin and doxycycline. Chemistry panel is notable for K+ = 3.3, WBC = 11.71, hemoglobin = 11.5 Admission Exam Per Admitting Provider General: awake, alert, no apparent distress, + appears older than stated age Head: Normocephalic, atraumatic ENT: PERRL, EOMI, no pharyngeal exudate, mucous membranes moist Chest: Clear to auscultation, on 3L via NC, no adventitious breath sounds Cardiac: + slightly tachycardic, HR = ~90, Regular rhythm, no murmur, no JVD, normal peripheral pulses, good capillary refill Abdominal: NABS x 4 quadrants, soft, nontender to palpation, no rebound, guarding or tenderness Extremities: Normal inspection, no peripheral edema or erythema, calfs nontender to palpation Psych: Normal mood and affect Neuro: AAO x 3, strength intact bilaterally and related 5/5, no motor deficits, speech is clear, no peripheral sensory deficits Principal Diagnosis Atypical Pneumonia, Hypoxia Discharge Exam General: Resting comfortably HEENT: NC/AT; PERRLA with EOMI; [place] conjunctiva, MMM. No erythema of posterior pharynx Neck: Supple and nontender Cardiac: RRR Lungs: room air; CTA Abdomen: Bowel normoactive X 4; Nontender to palpation Extremities: Warm. No edema present Neuro: No focal weakness Skin: No rash Discharge Data Allergies Allergy/AdvReac Type Severity Reaction Status Date / Time nitrofurantoin Allergy Intermediate NAUSEA, Verified 10/05/19 11:25 INCREASED HEART RATE pollen extracts Allergy Intermediate ITCHY Verified 10/05/19 11:25 EYES, SNEEZING, CONGESTION Sulfa (Sulfonamide AdvReac Severe SEVERE Verified 10/05/19 11:25 Antibiotics) VOMITIN AND NAUSEA levofloxacin AdvReac Intermediate NAUSEA, Verified 10/05/19 11:25 INCREASED HEART RATE Consultations 09/26/19 10:00 ED Decision to Admit Stat 09/26/19 12:56 Consult Case Management - Discharge Planning Routine 09/27/19 14:29 Consult Pulmonology Routine Procedures Performed Operation Date: 09/28/19 14:00 Actual Procedures p Bronchoscopy Radiology(Bilateral) - Leandro Trent MD Ordered Studies 09/26/19 08:22 CT angio chest PE protocol Stat CXR 09/19, 09/26 Hospital Course (1) Atypical pneumonia: Initially diagnosed with acute bronchitis in Aug 2019, did not have any improvement following 2 rounds of both Z-skye & steroids. Procal <0.05 & BNP 864. CT chest showed scattered groundglass and nodular airspace opacities and bilateral hilar lymph nodes. Influenza and Legionella antigen were negative. Chlamydia and Mycoplasma are pending at the time of discharge. Will complete Doxycycline 7 day course. Duoneb q4hr ATC, Mucinex BID, Tessalon perles TID scheduled. IS and Flutter valve. Consulted pulm service, appreciate input. S/p bronch on 09/28, cytology negative. Prednisone 50 mg PO daily plan is for 6 to 8 weeks of treatment-we will continue on 50 mg daily dose until outpatient pulm follow up to determine taper after that Added Atovaquone for PCP ppx while on high-dose prednisone long-term-- allergy to sulfas. Will f/u with pulm on 10/11/19 for further evaluation. Was weaned to room air prior to discharge. (2) Hypoxia: Weaned to room air following initiation of steroids. Atypical findings noted on chest CT. CAM level was negative; MAC, ANCA pending. Pulm consulted, s/p bronch on 09/28. Continue PO Prednisone until outpt follow up, will need long taper. (3) Pericarditis: Diagnosed with pericarditis on 09/19/19; started Colchicine on 09/19 - will d/c due to severe diarrhea. D/c ibuprofen in setting of IV steroids to avoid gastritis/PUD. Stress test completed in Aug due to chest pain, was negative for cardiac ischemia. On steroids - will be adequate treatment for pericarditis. Lyme titer negative; did have h/o EBV in February 2019. (4) Pericardial effusion: Small pericardial effusion noted on previous echo in Aug 2019. Limited 2D echo showed resolution of her cardio effusion. (5) Acute bronchitis: See work up/history above. Improving with treatment as above (6) Hypertension: Continue Irbesartan 75 mg daily, Coreg 6.25 mg BID. D/c HCTZ due to hypokalemia. Increased Amlodipine to 5 mg daily. (7) GERD (gastroesophageal reflux disease): PPI daily. (8) Depression: SSRI. (9) Anxiety: SSRI. (10) Anemia: Iron deficiency anemia noted on labs. FOBT was negative. Started ferrous sulfate 325 mg BID. Last colonoscopy ~1.5 yrs ago, was negative; would like to establish care with [facility] in future, will need EGD to evaluate for bleeding versus poor absorption. (11) Headache: Tylenol prn. (12) Hypokalemia: K was low during this admission - likely related to HCTZ and diarrhea in setting of colchicine therapy. D/c'ed HCTZ as pt. required persistent replacement. D/c'ed colchicine due to persistent diarrhea. Continue KCl 20 mEq PO daily at home. Script provided for outpatient labs. (13) Ulcerative colitis: H/o, first episode in 2000 with bloody stools. Was on steroids and another targeted agent but all meds are now discontinued. Colonoscopy q3yrs, most recently 1.5 years ago. No evidence of acute flare. Did develop diarrhea -- reports this is a chronic problem for her. Denies acute bleeding. C diff negative. Likely related to colchicine therapy, now discontinued. (14) Multiple sclerosis: Pt. reports she was diagnosed with MS in 2000 after developing arm/leg tingling/numbness. She has lesions noted on brain MRI. Followed with Dr. Patel for years but did not have any further symptoms/require treatment. Recent evaluation by neuro in 2018 did not confirm diagnosis of MS; MRI of brain February 2019 showed patchy nonenhancing foci of signal abnormality that were nonspecific. No evidence of acute flare, will monitor. (15) DVT prophylaxis: SCDs; Lovenox. Discharged to home on 10/01/19. Total Time Total Time Spent Total Time Spent (In Minutes): >30 minutes Total Time Includes: Examination of the Patient, Discharge Planning, Medication Reconciliation, Communication With Other Providers and Other Discharge Plan Discharge Items Patient Disposition: Home - Self-Care Reason For Visit: ATYPICAL PNEUMONIA Discharge Diagnosis: Atypical Pneumonia, Hypoxia Condition on Discharge: Good Goals: You have been hospitalized for an acute medical problem. During your stay at [facility], we have made an effort to correct the problem that brought you to the hospital while keeping you as comfortable as possible. Medications were used to bring your condition under control and your discharge instructions will include directions for any medications you should take after leaving the hospital. Please make sure you see your Primary Care Provider as part of your follow up plan. Activity: As commented below Exercise/Sports: Gradually increase as tolerated Non-emergency contact: Primary Care Provider and Research Quality Assurance Specialist Call non-emergency contact if: you have any medication questions, your symptoms worsen and you have a fever Follow-up/Referrals: Cheyenne Kimball MD [Primary Care Provider] - 10/05/19 11:30 am (Please, follow up at [facility] with Dr. Kimball on ThursdayOctober 05 at 11:30 pm. *If you need to change this appointment, call the office at [phone].) Jennifer Reese CRNP [Nurse Practitioner] - 10/11/19 10:00 am (Please, follow up at [facility] Pulmonology Office with Jennifer LAZO on ThursdayOctober 11 at 10:00 am. *The office is located in [address] of [facility], next to this hospital. If you need to change this appointment, call the office at [phone].) Ignacio Ferrer MD [Physician] - 10/07/19 2:15 pm (Please, follow up at [facility] Gastroenterology with Dr. Ferrer on ThursdayOctober 07 at 2:15 pm. *The office is loated at [address] [facility] in [place] ([place]). If you need to change this appointment, call the office at [phone].) Diet: Heart Healthy Addtl Attending Provider Instructions: 1. Atypical Pneumonia * Please continue Doxycyline 100 mg twice daily to complete a 7 day course. * Continue Mucinex 1200 mg twice daily (over the counter) * Continue Prednisone 50 mg daily unless instructed otherwise to decrease your dose by Dr. Trent. * Please take Atovaquone 10 mL daily for PCP ppx. * You will need to follow up with pulmonology as scheduled on Oct 11, 2019. 2. Pericarditis * Please discontinue Colchicine due to severe diarrhea. * Continue Prednisone 50 mg daily as noted above. * Please hold ibuprofen due to steroids -- increased risk of gastric ulcer in setting of both steroids and NSAIDs. * F/u with cardiology as scheduled in the outpatient clinic. 3. Diarrhea, Iron deficiency Anemia * Please take Imodium 2 mg every 4-6 hours as needed for diarrhea at home. * Discontinue Colchicine use - will increase diarrhea. * Drink plenty of fluids to avoid dehydration. * Please take ferrous sulfate 325 mg BID. * You will need to follow up with [facility] on 10/07/19 to discuss iron deficiency anemia and indication for repeat colonoscopy/EGD. 4. Hypertension * Continue Irbesartan and Coreg as prescribed. * HCTZ has been discontinued. * Amlodipine has been increased to 5 mg daily. 5. Low Potassium Levels * Please take potassium 20 mEq daily at home. * Script was provided for lab work in 2-3 days. Results will be faxed to your PCP. 6. Please follow up with pulmonology, cardiology, PCP and GI as scheduled. Pending Studies at Discharge: Yes Studies:: Bronchial washing, Chlamydia pneumoniae, Mycoplasma, MAC, ANCA Stand-Alone Forms: My [facility], Work/School Release (Inpt) Medications and DC Order Prescriptions: New amlodipine [Norvasc] 5 mg Tablet 5 mg PO QAM Qty: 30 RF: 2 ferrous sulfate 325 mg (65 mg iron) Tablet,Delayed Release (Dr/Ec) 325 mg PO BIDM 30 Days Qty: 60 RF: 0 prednisone 50 mg Tablet 50 mg PO DAILY 30 Days Qty: 30 RF: 0 potassium chloride 20 mEq tablet extended release 20 meq PO DAILY Qty: 1 RF: 0 atovaquone 750 mg/5 mL suspension 1,500 mg PO DAILY Qty: 210 RF: 1 Continued Immune Support 250-12.5 mg tablet,chewable 250 mg PO QAM RF: 0 irbesartan 75 mg tablet 75 mg PO QAM RF: 0 carvedilol 6.25 mg tablet 6.25 mg PO BID RF: 0 albuterol sulfate 90 mcg/actuation HFA aerosol inhaler 1 puffs INH QID PRN (Reason: Shortness Of Breath) Qty: 8 RF: 3 fexofenadine [[place] Allergy] 180 mg Tablet 180 mg PO QAM PRN (Reason: hay fever) RF: 0 fluticasone propionate [Flonase Allergy Relief] 50 mcg/actuation [place] 1 spray INTRANASAL DAILY PRN (Reason: ALLERGIES IN FALL) RF: 0 Flovent HFA 110 mcg/actuation Hfa Aerosol Inhaler 2 puff INHALATION BID RF: 0 omeprazole 40 mg capsule,delayed release(DR/EC) 40 mg PO QAM RF: 0 Premarin 0.625 mg tablet 0.625 mg PO QAM RF: 0 fluoxetine [Prozac] 20 mg capsule 40 mg PO HS RF: 0 Discontinued ibuprofen 200 mg Tablet 600 mg PO TID RF: 0 amlodipine 2.5 mg tablet 2.5 mg PO QAM RF: 0 hydrochlorothiazide 25 mg tablet 25 mg PO QAM RF: 0 colchicine 0.6 mg tablet 0.6 mg PO BID Qty: 60 RF: 0 No Action zolpidem [Ambien CR] 6.25 mg tablet,ext release multiphase 6.25 mg PO HS PRN (Reason: insomnia) Qty: 30 RF: 1 fluconazole [Diflucan] 150 mg tablet 150 mg PO ONCE Qty: 1 RF: 2 lorazepam 1 mg tablet See Rx Instructions .ROUTE .COMPLEX Qty: 40 RF: 0 Discharge Orders: Discharge Order (Routine); Ordered 10/01/19 Ordered By: Marina Amador/Other Patient Handouts: Pericarditis, Pneumonia Dc Admission Data Admit Date/Time: 09/26/19 10:41 Attending Provider: Marina Huang Admit Provider: Rena Gross Primary Care Provider: Cheyenne Kimball Other Providers: Rena Gross ; Leandro Trent Other Interventions: Discharge Summary Assessment (RN) Last Done: 10/01/19 17:52 DC Date/Time DO NOT enter until pt leaves facility: 10/01/19 18:21 Supervising Physician Co-Signing Physician Notes PA Supervision Note: I personally saw and examined the patient. I verified all robins points and agree with APRIL Reyna with the following exceptions and/or additions: Patient feeling much better, less short of breath and weaned off oxygen. Cough is decreasing. Vitals reviewed Gen: AAOx3, NAD HEENT: Anicteric sclerae, EOMI CV: RRR no mgr nl S1S2 Pulm: CTAB no wcr Abd: +BS soft NT ND no masses or hernias Ext: No edema, 2+ DP pulses Skin: No rashes, warm/dry Neuro: Full strength throughout 54-year-old female with subacute bronchitis and cough previously unresponsive to outpatient treatment, now improving with high-dose steroids Weaned off oxygen Remainder of work-up still pending Status post bronchoscopy -Needs continued follow-up with pulmonology after discharge Stable for discharge to home
[2019-10-02 23:27] LABS: ANCA Screen Negative (Negative); Immunoglobulin IgE 2 kU/L (<OR=114); Myeloperoxidase Ab <1.0 AI (<1.0); Proteinase-3 AB <1.0 AI (<1.0)
[2019-10-03 08:40] LABS: ANA Screen NEGATIVE
[2019-10-03 16:12] LABS: Mycoplasma pneumoniae Ab, IgG 4.08 (<=0.90); Mycoplasma pneumoniae Ab, IgM 208 U/mL (<770)
== END 2019-10-01 18:21 | disposition home or self-care (01) | DRG 194 ==
LOC: ED 07:29 → 3N 10:41 → SUATTDRO 10:41 → 3N 12:08